=== PATIENT | female | born 1955 | race Caucasian/White ===

== ENCOUNTER 2019-02-21 09:21 | Inpatient (IN) | payer BC, OTHER ==
[2019-02-21] MEDS ORDERED: Ondansetron PF 4 MG/2 ML Vial ONE (09:46)
--- NOTE | 2019-02-21 10:00 | RAD ---
PORTABLE CHEST 1 VIEW: Date: 02/21/19 Time: 0933 hours HISTORY: Weakness, incontinence, altered mental status. FINDINGS: Comparison made with exam of 02/05/15. The heart size is enlarged. The lungs are well expanded without lobar consolidation, pneumothoraces, elizabeth pulmonary edema, or pleural effusions. IMPRESSION: Cardiomegaly. POS: TPC
[2019-02-21 10:23] LABS: Acetaminophen Less than 6.0 mcg/mL (10.0-30.0); Alcohol Less than 10 mg/dL (Less than 10); Salicylate Less than 8.0 mg/dL (15.0-30.0)
[2019-02-21 10:33] LABS: Hemoglobin 13.6 g/dL (12.0-16.0); Mean Corpuscular HGB CONC 32.4 g/dL (32.0-36.0); Mean Corpuscular Hemoglobin 29.3 pg (27.0-31.0); Mean Corpuscular Volume 90.5 fL (78.0-98.0); Mean Platelet Volume 7.5 fL (7.4-10.4); Platelet Count 369 thou/uL (130-400); Red Blood Cell (RBC) Count 4.63 mill/uL (4.20-5.40); White Blood Cell (WBC) Count 23.1 thou/uL (4.8-10.8)
[2019-02-21 10:36] LABS: Band 22 % (5-11); Lymphocytes 5 % (21-51); MDiff Complete? YES; Monocytes 3 % (0-10); Neutrophil 70 % (42-75); Platelet Morphology Comment Appears Adequate; Vacuoles SLIGHT
[2019-02-21 10:50] LABS: ALT (SGPT) 16 U/L (8-55); AST (SGOT) 20 U/L (5-34); Albumin 3.8 g/dL (3.4-4.8); Alkaline Phosphatase 191 U/L (40-150); Anion Gap 14 mmol/L (10-20); BUN (Urea Nitrogen) 23 mg/dL (9.8-20.1); Bilirubin, Total 2.4 mg/dL (0.2-1.2); CK (CPK) 503 U/L (29-168); Calc. Creatinine Clearance 0 mL/min (70-130); Calcium 9.4 mg/dL (7.8-10.44); Carbon Dioxide 21 mmol/L (23-31); Chloride 105 mmol/L (98-107); Estimated GFR-MDRD 59; Globulin 3.5 g/dL (2.4-3.5); Glucose 213 mg/dL (80-115); Lipase Less than 4 U/L (8-78); Potassium 3.1 mmol/L (3.5-5.1); Protein, Total 7.3 g/dL (6.0-8.3); Sodium 137 mmol/L (136-145)
--- NOTE | 2019-02-21 11:15 | CT ---
CT BRAIN NONCONTRAST: DATE: 02/21/2019 HISTORY: 64-year-old female with headache FINDINGS: There is no evidence of acute intra-axial or extra-axial hemorrhage. There is no midline shift or any other mass effect. There is no extra-axial fluid collection. There is no evidence of obstructive hydrocephalus. Calvarium is intact. IMPRESSION: No acute intracranial findings.
--- NOTE | 2019-02-21 11:38 | CT ---
CT ABDOMEN WITH CONTRAST CT PELVIS WITH CONTRAST: DATE: 02/21/2019 HISTORY: 64-year-old female with hematuria bilateral flank pain. COMPARISON: Noncontrast CT of 03/14/2013. TECHNIQUE: IV injection of iodinated contrast media: administered. Oral contrast media:Not administered FINDINGS: There is a new finding of moderate to large staghorn calculi in the bilateral renal pelves, extending into several of the bilateral calyces. There is another new finding of associated moderate dilation of multiple bilateral calyces representing obstructive uropathy. In addition to the staghorn calculi, there are multiple detached calculi which have grown in size or are new. The previously demonstrated exophytic cortical cyst arising from the mid to lower pole of the right kidney has not s ignificant changed, measuring approximately 3 cm. Another new finding of a 9 x 8 x 5 mm calculus in the dependent portion of the urinary bladder to the left of midline, not obstructing the ureter. Infe rior to the renal pelves, the bilateral ureters are not dilated. Urinary bladder has thin, normal james. No evidence of bladder tumor. Large number of diverticula throughout sigmoid and descending co kerline without convincing evidence of diverticulitis. Fewer number of diverticula at splenic flexure. Mural thickening and edema of ascending colon and cecum, and to a lesser degree the transverse colon and terminal ileum. No appendicitis. The previously demonstrated right adrenal mass measuring approximately 3.5 x 2.5 x 3.5 cm, currently measures 4.5 x 3.5 x 4.5 cm. It has heterogeneous attenua tion. The overall average density is 45 Hounsfield units after contrast. On the previous CT, the density was consistent with adrenal adenoma. There is stronger enhancement of the contralateral left adrenal nodule which currently measures 2 x 1.5 x 2 cm. Again noted are the multiple hepatic cysts. No solid hepatic mass identified. There has been interval growth of the previously tiny, approximate 2 mm gallstone, currently measuring approximately 10 x 12 x 10 mm, located in the proximal body of the gallbladder. No signs of acute cholecystitis. No abdominal aortic aneurysm. Unremarkable pancreas and spleen. No small bowel dilation. Tiny splenule in left upper quadrant stable. Herniation of approximately 10-15% volume of the stomach into the thoracic cavity. No pleural effusion. No ascites or pneumoperitoneum. IMPRESSION: 1. Bilateral staghorn renal calculi causing bilateral obstructive uropathy, with moderate bilateral h ydronephrosis. 2. Bladder calculus. 3. Additional bilateral renal calculi. 4. Cholelithiasis. 5. Colonic diverticulosis without convincing evidence of diverticulitis. 6. Slowly growing bilateral adrenal masses, right larger than left, probably benign. 7. Small sliding hiatal hernia.
[2019-02-21 13:20] LABS: Amphetamine Not Detected (NotDetected); Barbiturates Screen Not Detected (NotDetected); Benzodiazepine Screen Not Detected (NotDetected); Cocaine Metabolite Screen Not Detected (NotDetected); Medtox Control Line Valid? VALID (VALID); Medtox Reader # READER 4; Methadone Not Detected (NotDetected); Methamphetamine Not Detected (NotDetected); Opiate Screen Not Detected (NotDetected); Oxycodone Screen Not Detected (NotDetected); Phencyclidine (PCP) Not Detected (NotDetected); THC/Cannabinoid Screen Not Detected (NotDetected); Tricyclic Screen Not Detected (NotDetected)
[2019-02-21 13:24] LABS: Bilirubin Negative (Negative); Blood, Urine Large (Negative); Glucose, Urine (Dipstick) Negative (Negative); Leukocyte Small (Negative); Nitrite Positive (Negative); Protein, Urine (Dipstick) 100 mg/dL (Neg-Trace)
[2019-02-21 13:32] LABS: Clarity Clear (Clear)
[2019-02-21 13:35] LABS: Bacteria/HPF 3+ HPF (None Seen); WBC/HPF 21-50 HPF (0-3)
[2019-02-21] MEDS ORDERED: ISOVUE-370 76%-LOCM 1 ML ONE (13:58)
[2019-02-21] MEDS ORDERED: Acetaminophen 500 MG TAB ONE (14:17)
[2019-02-21] MEDS ORDERED: cloNIDine 0.1 MG TAB PO PRN (16:49)
[2019-02-21] MEDS ORDERED: hydrALAZINE 20 MG/ML VIAL SLOW IVP PRN (16:49)
[2019-02-21] MEDS: NS 0.9% w/ 40 MEQ KCL 1,000 ML IV SCH (17:35)
[2019-02-21] MEDS: Acetaminophen 325 MG TAB PO PRN (17:37)
--- NOTE | 2019-02-21 17:57 | HP ---
PRIMARY CARE PHYSICIAN: Arjun Vilchis MD CHIEF COMPLAINT: Back pain as well as abdominal pain. HISTORY OF PRESENT ILLNESS: Ms. Sosa is a pleasant 64-year-old female, who has a history of hypertension. She says that on Thursday she started having pain in her back, which was going on both sides. She also was having some headache off and on as well. She described the pain in her back and says as sharp, and the patient says it would come, be extremely severe. It would get to the point of being 11/10 and then go away. She also says she felt a hot feeling as well. She says that the pain would radiate down into her groin as well, and she says on Thursday night she urinated, it would look like elizabeth blood, but then this went away. She also noted the pain was so bad that it caused her to have nausea and vomiting. She also says that she has not eaten very much in the last few days, and as a result, she came into the ER for evaluation. In the ER, she had a CT scan of her abdomen and pelvis, which demonstrated bilateral large staghorn calculus. There was some concern for bilateral obstructive uropathy, and she is being admitted for further evaluation. Also on the CT scan, it showed that she had cholelithiasis as well as stones in the gallbladder and incidental finding of an adrenal mass. The patient also has a history of hypertension. She says that she currently does not take any blood pressure medications. She says that she was taught to control her blood pressure with diet. She says that she also has been having some shortness of breath with exertion and she also says that she gets short of breath if she lies down flat. She has not noticed any lower extremity edema. REVIEW OF SYSTEMS: CONSTITUTIONAL: There has been subjective fever as well as chills. No night sweats. No weight loss. HEENT: She is complaining of some headaches, some occasional dizziness but no visual changes. No sore throat, rhinorrhea, or neck pain. No adenopathy. PULMONARY: There is no hemoptysis. No cough. No wheezing. CARDIOVASCULAR: As in history of present illness and also denies any chest pain. GASTROINTESTINAL: No abdominal pain, but she has had some nausea and vomiting. She does complain of constipation where she says she has difficulty having a bowel movement. She attributes this to a previous hysterectomy and says that her abdomen has never been the same since. She also notes severe abdominal bloating as well. GENITOURINARY: As in the history of present illness. MUSCULOSKELETAL: She denies any muscle aches or pains. No joint effusions. SKIN AND INTEGUMENT: No skin changes. No rash. NEUROLOGIC: No focal weakness or numbness. No seizures. ENDOCRINE: No heat or cold intolerance. PAST MEDICAL HISTORY: Significant for hypertension, bladder prolapse, heart palpitations, as well as gastroesophageal reflux disease. PAST SURGICAL HISTORY: She has had a history of kidney stone removal in the past. She believes it was surgical. She has had a hysterectomy as well as a bladder reconstruction. ALLERGIES: PENICILLIN, WHICH CAUSES HIVES AND HER EYES TO SWELL. SOCIAL HISTORY: She is a former smoker. She quit 8 years ago. Denies any alcohol use. She is , has 3 children, and is a full code. Her , Adriel, is her surrogate decision maker. FAMILY HISTORY: Significant for colon cancer in her father as well as lung cancer. She is not sure what conditions her mother have. CURRENT MEDICATIONS: None. PHYSICAL EXAMINATION: GENERAL: She is alert and oriented. She appears to be in no acute distress. She is well developed and well nourished. VITAL SIGNS: Her blood pressure is ranging from 134/96, up to as 160 to 170 systolic. Her heart rate is in the 90s, respiratory rate of 16, temperature is 98.3. HEENT: Pupils are equal, round, and reactive to light. Extraocular muscles are intact. Sclerae anicteric. Throat, there is no erythema, no exudates. She has poor dentition. She is practically edentulous. She has upper plate dentures. Her ears, she has some wax in the right external canal and her tympanic membranes are intact. There is no fluid behind the drum. NECK: There is no adenopathy. No bruits. No jugular venous distention. LUNGS: Her lungs are clear to auscultation. There is no wheezing, no rales, no rhonchi. CARDIOVASCULAR: She has a normal S1 and S2. I do not appreciate an S3 or S4. No murmurs, clicks, or rubs. ABDOMEN: Mildly distended, tympanic to percussion. There is some mild diffuse tenderness. There is no rebound, no guarding. No organomegaly. No dullness to percussion. EXTREMITIES: There is no clubbing or cyanosis. No edema. No joint effusions. NEUROLOGIC: Cranial nerves are intact. Muscle strength is 5/5 in both her upper and lower extremities. SKIN AND INTEGUMENT: No skin changes. No rash. LABORATORY DATA: The white blood cell count is 23.1, hemoglobin is 13.6, hematocrit is 41.9, and platelet count is 369. Sodium is 137, potassium is 3.1, chloride is 105, CO2 is 21, BUN of 23, creatinine is 0.95, glucose is 213, alkaline phosphatase is 191. CK is 503. Urinalysis was significant for nitrite positive and 3+ bacteria. IMAGING STUDIES: She had a CT scan of the brain, which was negative for any acute intracranial abnormalities. This is by my reading. Also, had a CT scan of the abdomen and pelvis, which was significant for bilateral staghorn calculi, cholelithiasis as well as bilateral bladder stones and slowly growing adrenal masses, the right larger than the left, it is listed as probably benign, and evidence for a sliding hiatal hernia. The patient had a chest x-ray, also by my reading, the heart size was mildly enlarged, but there was no evidence of any increased pulmonary vascular markings. ASSESSMENT AND PLAN: 1. This is a pleasant 64-year-old female, who presents with abdominal pain as well as flank pain. She has had subjective chills and fever at home as well as gross hematuria. On her CT scan, it was noted that she had bilateral staghorn count calculi. She also has an elevated white blood cell count concerning for early sepsis. She will be admitted and started on IV antibiotics. Blood and urine cultures have been done in the ER, and Urology will be consulted to help manage and evaluate the staghorn calculus. Suspected culprit for the urinary tract infection would be Proteus. 2. Hypertension, which appears to be poorly controlled. She will need to be started on an antihypertensive agent. Concerning her symptoms of dyspnea on exertion as well as the uncontrolled blood pressure, we will need to get an echo to rule out heart failure. 3. Incidental adrenal mass. CT criteria are suggesting that this is a benign etiology. However, if her blood pressure proves to be difficult to control, she may need to have studies done to see whether or not this is an active adrenal adenoma and check for serum aldosterone levels as well as concern for other etiology such as pheochromocytoma. It is noted that her potassium is a little bit on the lower side. 4. Gastroesophageal reflux disease. She has been counseled that she likely should be on a proton pump inhibitor long-term as she has fairly consistent symptoms, which could put her at risk for esophageal stricture and even Marin's esophagus and cancer. We will place her on a proton pump inhibitor and she has been asked to discuss this with Dr. Dorantes. We will place the patient on DVT prophylaxis and further recommendations to follow. Job ID: [id number]
[2019-02-21] MEDS ORDERED: diphenhydrAMINE 25 MG CAP PO PRN (18:37)
[2019-02-21] MEDS: Ondansetron PF 4 MG/2 ML Vial IVP PRN (19:24)
--- NOTE | 2019-02-21 20:37 | PDOC.EVN ---
Event Note - Event Note Event Note: Called by RN due to patient complaining of difficulty breathing. Ordered nebs as patient reportedly wheezing. Sats 95% on RA. Reportedly appeared anxious. Not normally on oxygen at home. No hx of COPD or asthma. I have examined and assessed patient, s/p neb and feeling better. Patient states she felt better as soon as oxygen was put on. She states this has been happening after vomiting. Denies any choking or aspiration. States she is dry heaving and afterwards feels pressure in her chest with trouble catching her breath and reports she starts to shake afterward. At present without any pain. States she feels bloated, but has been passing wind. Last bowel movement was yesterday evening, loose stools after a week of no stools. She states this is common for her. Has not had anything to eat since Thursday and feels this is the reason for her dry heaving. Given Zofran IV by nurse. Phenergan prescribed as well. Patient has had extensive imaging including CXR and CT A/P today. Given elevated t. bili, will add-on RUQ US. LFTs to be checked with AM labs. Continue to monitor.
[2019-02-21] MEDS: Docusate 100 MG CAP PO SCH (21:45)
--- NOTE | 2019-02-22 00:10 | CON ---
DATE OF CONSULTATION: 02/21/2019 CONSULTING PHYSICIAN: Alex Perez REASON FOR CONSULTATION: Nephrolithiasis. HISTORY OF PRESENT ILLNESS: Mrs. Sosa is a 64-year-old white female with a history of nephrolithiasis who came into the emergency room due to bilateral flank pain and feelings of significant malaise, nausea and vomiting. She has a remote history of kidney stones and was treated by Dr. Lee in the past with ureteroscopy and removal of some stones at that time. She has not seen a urologist in several years or any doctor for that matter in the past 3-4 years. When she started feeling bad approximately 2 days ago, she initially thought that she had some kind of pulled muscle in her back and was possibly getting sick. When she had progressively gotten increasing flank pain bilaterally with evidence of hematuria and beginning as a feeling of malaise and nausea and vomiting, she came into the emergency room today where she underwent a CT scan, which demonstrated bilateral staghorn nephrolithiasis. Her urinalysis was consistent with a possible urinary tract infection. Given these findings, I had recommended that she be admitted to the [facility] for treatment of bilateral pyelonephritis and initiation of a treatment plan for her nephrolithiasis. On my discussion with the patient, she states she is feeling a little bit better after being put into the hospital and being receiving antibiotics and medication. She is still having some nausea, but no vomiting. She denies any current fevers. She states both her sides and flanks are hurting without radiation to the groin. The pain has been going on for several weeks now, but has progressively gotten worse in the last few days. She states she has had intermittent flank pain bilaterally for the past 4 months, but she never attributed this to potentially having kidney stones. ALLERGIES: PENICILLIN. HOME MEDICATIONS: The patient does not entirely know her home medications. She states that she has a "list on file." Most recent medications listed are 1. Prednisone. 2. Chlordiazepoxide. 3. Relafen. 4. Losartan. Medication list could not be verified with the patient. PAST MEDICAL HISTORY: 1. Hypertension. 2. Bladder prolapse. 3. Heart palpitations. 4. Gastroesophageal reflux disease. PAST SURGICAL HISTORY: 1. Ureteroscopy with Dr. Lee. 2. Hysterectomy. 3. Bladder reconstruction, although further details could not be provided. FAMILY HISTORY: Significant for colon cancer in her father as well as lung cancer. Her daughter has a significant history of nephrolithiasis and her father also had a significant history of nephrolithiasis. SOCIAL HISTORY: The patient is , lives with her . She denies currently smoking, although she used to smoke, but quit 8 years ago. She denies illicit drug use or alcohol abuse. REVIEW OF SYSTEMS: A 12-point review of system was reviewed and negative other than what was commented on the HPI or specifically below. She does report headaches and some dizziness, but no visual changes or severe headaches. No chest pain or shortness of breath. Remainder of review of systems was reviewed, otherwise negative other than what was commented on the HPI. PHYSICAL EXAMINATION: VITAL SIGNS: Temperature 97.9, pulse 113, blood pressure 157/83, respirations 20, saturations 95% on 3 L nasal cannula. GENERAL: No apparent distress, although she appears mildly uncomfortable. She is communicative and alert, well nourished, well developed, appears stated age. HEENT: Normocephalic, atraumatic. Pupils are symmetric and round. Sclerae are nonicteric. Moist mucous membranes. Trachea midline. CARDIOVASCULAR: Sinus tachycardia. Normal S1 and S2. Symmetric pulses. CHEST: No increased work of breathing. Symmetric expansion of the lungs, clear anteriorly. ABDOMEN: Soft, mildly tender to palpation bilaterally, especially toward the back where there is fairly significant CVA tenderness, nondistended. Positive bowel sounds. No obvious hepatosplenomegaly. No hernias. : Deferred at this time. EXTREMITIES: No clubbing, cyanosis, or edema. MUSCULOSKELETAL: No joint deformities or joint erythema noted. Full range of motion. SKIN: Warm and dry. Good turgor. No rashes or lesions. NEUROLOGIC: Cranial nerves 2 through 12 appear grossly intact. No focal or sensory-motor deficits identified. LYMPH: There is no lymphadenopathy in the cervical, axillary, inguinal regions or supraclavicular areas. PSYCHIATRIC: Alert and oriented x3. Appropriate mood and affect. LABORATORY EVALUATION: The full set of labs are in the [facility] system, which I have reviewed. White count is 23.1 with a hemoglobin of 13.6, creatinine is 0.95. Urine demonstrates nitrite positive, leukocyte esterase small, 7-10 red cells, 21-50 white cells, and 3+ bacteria. Urine culture is currently pending, but has not yet resulted. CT from February 21, I have reviewed these images myself and agree with the findings as discussed below. There are bilateral staghorn renal calculi causing bilateral obstructive uropathy with moderate hydronephrosis on both sides. There is calyceal dilation. There is a bladder calculus measuring approximately 4 mm. There are additional bilateral renal calculi in addition to the staghorn calculi on both sides. Cholelithiasis, diverticulosis present. There are bilateral adrenal masses, larger on the right, likely benign and a small sliding hiatal hernia. A brain CT was negative. ASSESSMENT AND PLAN: A 64-year-old white female with bilateral staghorn nephrolithiasis with likely obstruction and evidence of possible pyelonephritis, currently on antibiotic therapy with Levaquin and vancomycin. She did have some reactions to vancomycin, but the Levaquin is probably more important. If she is not showing improvement of her white count on levofloxacin alone, I would consider broadening her to either ceftriaxone, meropenem, or Zosyn. The likely cross-reactivity between penicillin and synthetic penicillins is minimal and she would probably need broader spectrum coverage if she is not showing improvement. Given that she has staghorns and a significant amount of stone burden bilaterally, this will be excessive to try and handle with ureteroscopy alone. She probably will need bilateral percutaneous nephrolithotomy surgeries followed by clean-up ureteroscopy on both sides for a total of a minimum of 4 surgeries in complete totality. However, none of these procedure will be recommended in the setting of a current infection with elevated white count. At the current time, I would recommend for bilateral nephrostomy tubes in preparation for percutaneous nephrolithotomy bilaterally. Once the nephrostomy tubes were placed, we would allow for proper drainage of her infections on both sides followed by at least 2 weeks of antibiotic therapy, at which point we can then subsequently start with staged percutaneous nephrolithotomy, one side being done before the other with the percutaneous nephrolithotomy being done first and then a ureteroscopy on the same side followed by percutaneous nephrolithotomy on the opposite side and then a ureteroscopy on that side as well. I have explained this all to the patient and she is in agreement with the plan. She also has bilateral adrenal masses. These appear benign at the current time. I do not think anything further needs to be done at the current moment as her stone disease is a more pressing problem that is causing a more immediate issue. Long-term discussion about her adrenal masses can be discussed on a later basis, but most likely will just require some surveillance as well as some workup for a possible adrenal hyperplasia including an ACTH level and cortisol levels, and some additional adrenal based labs. These can be handled on an an outpatient basis. Summary of recommendations for now. 1. N.p.o. after midnight. 2. Bilateral nephrostomy tubes tomorrow. 3. Continue antibiotics for at least 2 weeks. Levaquin is probably acceptable. However, if the patient is not showing improvement, we would consider broadening to a synthetic penicillin such as meropenem or Zosyn. 4. We will continue to follow while inpatient, but we will schedule definitive stone surgery at a later date as nothing can be done during an active infection from a stone management standpoint. Job ID: [id number] EDER
[2019-02-22] MEDS: Acetaminophen 325 MG TAB PO PRN ×3 (02:14→22:10)
[2019-02-22] MEDS: Ondansetron PF 4 MG/2 ML Vial IVP PRN (02:15)
[2019-02-22] MEDS: NS 0.9% w/ 40 MEQ KCL 1,000 ML IV SCH ×2 (02:16→14:10)
[2019-02-22 04:51] LABS: INR-International Normal Ratio 1.2; PTT 35.6 SEC (22.9-36.1); Prothrombin Time 15.1 SEC (12.0-14.7)
[2019-02-22 05:10] LABS: Anion Gap 15 mmol/L (10-20); BUN (Urea Nitrogen) 17 mg/dL (9.8-20.1); Calc. Creatinine Clearance 91 mL/min (70-130); Calcium 8.4 mg/dL (7.8-10.44); Carbon Dioxide 19 mmol/L (23-31); Chloride 107 mmol/L (98-107); Estimated GFR-MDRD 76; Glucose 155 mg/dL (80-115); Potassium 4.1 mmol/L (3.5-5.1); Sodium 137 mmol/L (136-145)
[2019-02-22 05:11] LABS: ALT (SGPT) 17 U/L (8-55); AST (SGOT) 18 U/L (5-34); Albumin 3.3 g/dL (3.4-4.8); Alkaline Phosphatase 153 U/L (40-150); Bilirubin, Total 1.8 mg/dL (0.2-1.2); Protein, Total 6.2 g/dL (6.0-8.3)
[2019-02-22 05:13] LABS: Band 34 % (5-11); Hemoglobin 10.9 g/dL (12.0-16.0); Lymphocytes 10 % (21-51); MDiff Complete? YES; Mean Corpuscular HGB CONC 31.9 g/dL (32.0-36.0); Mean Corpuscular Hemoglobin 29.2 pg (27.0-31.0); Mean Corpuscular Volume 91.7 fL (78.0-98.0); Mean Platelet Volume 8.1 fL (7.4-10.4); Monocytes 8 % (0-10); Neutrophil 48 % (42-75); Platelet Count 287 thou/uL (130-400); RBC Distribution Width 13.1 % (11.5-14.5); Red Blood Cell (RBC) Count 3.74 mill/uL (4.20-5.40); White Blood Cell (WBC) Count 17.4 thou/uL (4.8-10.8)
[2019-02-22] MEDS: Promethazine HCl 25 MG/ML VIAL IM/IV PRN ×2 (07:13→16:14)
--- NOTE | 2019-02-22 07:26 | ULT ---
RIGHT UPPER QUADRANT ULTRASOUND: INDICATIONS: Epigastric abdominal with nausea and vomiting and elevated bilirubin. COMPARISON: Prior CT abdomen and pelvis dated 02/21/2019. FINDINGS: There are small cysts involving the liver. There is a 1.3 cm cyst within the anterior left hepatic l obe. There is an additional 2.5 cm cyst seen within the left hepatic lobe. There is a 2 cm cyst wit hin the central right hepatic lobe. There is diffuse fatty infiltration. There is a 3.9 cm mass wit hin the region of the right adrenal gland with some internal echogenicity, suspicious for an adenoma. There are small stones within the gallbladder. No sonographic Lenz sign is reported. There is a large, shadowing staghorn calculus within the right renal pelvis, with moderate to prominent caliect asis of the renal collecting system of the right kidney. There is a 3.2 cm cyst involving the inferi or pole of the right kidney. The common bile duct measures 2.9 mm. The visualized pancreas is withi n normal limits. The right kidney measures 11.2 x 5.6 cm. IMPRESSION: 1. Hepatic and right renal cysts. Fatty liver. 2. Large staghorn calculus of the right renal pelvis with dilatation of the calices of the right caitlyn al collecting system. 3. Cholelithiasis without sonographic evidence of acute cholecystitis. 4. Large hyperechoic mass within the region of the right adrenal gland, suspicious for an adenoma. POS: BH
[2019-02-22] MEDS: Docusate 100 MG CAP PO SCH ×2 (08:55→20:44)
[2019-02-22] MEDS: Amlodipine 5 MG TAB PO SCH (08:55)
[2019-02-22] MEDS: Enoxaparin Sodium 40 MG/0.4 ML SYRINGE SC SCH (08:56)
--- NOTE | 2019-02-22 14:25 | PQF ---
CLINICAL DOCUMENTATION IMPROVEMENT CLARIFICATION FORM: ICD-10 Updated PLEASE DO AN ADDENDUM TO THE PROGRESS NOTE WITH ANY DOCUMENTATION UPDATES OR ADDITIONS AND CARRY THROUGH TO DC SUMMARY. THANK YOU. DATE: 02/23/19 ATTN: DR. BRADLEY Please exercise your independent, professional judgment in responding to the clarification form. Clinical indicators are provided on the bottom of this form for your review Please check appropriate box(s) to clarify if the following diagnosis has been ruled in or ruled out: "SEPSIS" [x ] Ruled in diagnosis [ x] Continue to treat [ ] Resolved [ ] Ruled out diagnosis [ ] Cannot rule out diagnosis [ ] Other diagnosis [ ] Unable to determine In addition, please specify: Present on Admission (POA): [ x ] Yes [ ] No [ ] Unable to determine For continuity of documentation, please document condition throughout progress notes and discharge summary. Thank You. CLINICAL INDICATORS - SIGNS / SYMPTOMS / LABS ER NOTE: "SEPSIS" H&P: "SHE ALSO HAS AN ELEVATED WHITE BLOOD CELL COUNT CONCERNING FOR EARLY SEPSIS." PULSE 106 WBC 23.1 BANDS 34 RISKS: BILATERAL STAGHORN NEPHROLITHIASIS UTI TREATMENT: IV VANCOMYCIN (ER) IV LEVAQUIN (ER-PRESENT) IV FLUIDS (ER-PRESENT) BLOOD AND URINE CULTURES [employer] Winform Viewer (This form is maintained as a part of the permanent medical record) 2014 [email or web address]. All Rights Reserved [email or web address] [email or web address] Office: [phone] [facility]
--- NOTE | 2019-02-22 14:51 | PDOC.HOSPP ---
- Subjective Subjective: Ms. Sosa was seen today in follow-up of nephrolithiasis and UTI. She did not rest well last night. She continues to feel a bit nauseated. She denies any shortness of breath however. - Objective Vital Signs & Weight: Vital Signs (12 hours) Temp Pulse Resp BP BP Pulse Ox 02/22/19 11:24 98.9 F 79 16 157/88 H 95 02/22/19 08:55 81 143/82 H 02/22/19 08:00 97 02/22/19 07:20 98.1 F 81 14 143/82 H 97 02/22/19 05:34 97 02/22/19 03:31 98.5 F 87 18 126/74 97 Weight Admit Weight 169 lb 12.095 oz Weight 169 lb 12.095 oz I&O: 02/21/19 02/22/19 02/23/19 06:59 06:59 06:59 Intake Total 1600 Balance 1600 Result Diagrams: 02/22/19 04:02 02/22/19 04:02 ROS - Review of Systems All systems: All other ROS were reviewed and found negative. - Medication Medications: Active Medications Generic Name Dose Route Start Last Admin Trade Name Freq PRN Reason Stop Dose Admin Acetaminophen 650 mg 02/21/19 16:49 02/22/19 02:14 Tylenol PO 650 mg Q4H PRN Administration Headache/Fever/Mild Pain (1-3) Albuterol/Ipratropium 3 ml 02/21/19 19:45 02/22/19 10:26 Duoneb NEB Not Given [id number] AVNI Amlodipine Besylate 5 mg 02/22/19 09:00 02/22/19 08:55 Norvasc PO 5 mg DAILY AVNI Administration Docusate Sodium 100 mg 02/21/19 21:00 02/22/19 08:55 Colace PO 100 mg BID AVNI Administration Enoxaparin Sodium 40 mg 02/22/19 09:00 02/22/19 08:56 Lovenox SC Not Given 0900 AVNI Levofloxacin 500 mg/ Device 100 mls @ 100 mls/hr 02/22/19 14:00 02/22/19 14: 10 IVPB 100 mls Q24HR AVNI Administration Potassium Chloride/Sodium Chloride 1,000 mls @ 100 mls/hr 02/21/19 16:49 14:10 Ns 0.9% W/ 40 Meq Kcl IV 1,000 mls .Q10H AVNI Administration Ondansetron HCl 4 mg 02/21/19 16:49 02/22/19 02:15 Zofran IVP 4 mg Q6H PRN Administration Nausea/Vomiting Promethazine HCl 12.5 mg 02/21/19 20:31 02/22/19 07:13 Phenergan IM/IV 12.5 mg Q6H PRN Administration Nausea/Vomiting - Exam NAD Eye: PERRL, anicteric sclera ENT: normocephalic atraumatic, no oropharyngeal lesions Neck: supple, symmetric, no JVD Heart: RRR, no murmur, no gallops, no rubs Respiratory: CTAB, no wheezes, no rales, no ronchi Gastrointestinal: soft, non-tender, non-distended Extremities: no cyanosis, no edema Hosp A/P (1) Sepsis Code(s): A41.9 - SEPSIS, UNSPECIFIED ORGANISM Status: Acute (2) Bilateral nephrolithiasis Code(s): N20.0 - CALCULUS OF KIDNEY Status: Acute (3) UTI (urinary tract infection) Status: Acute (4) Hypertension Code(s): I10 - ESSENTIAL (PRIMARY) HYPERTENSION Status: Chronic - Plan * Sepsis - due to UTI - will continue Levaquin for now- clinically she seems to have ahd some response. Her WBC count is beginning to decline, and she is not febrile. Hopefully cultures will be available soon to help guide therapy * Nephrolithiasis- Urology input appreciated. She will have bilateral Nephrostomy tubes placed * HTN- blood pressure is a bit better- will continue Norvasc- and PRN medications * Echo is pending- due to some hear failure symptoms noted on initial presentation
--- NOTE | 2019-02-22 21:43 | PRG ---
DATE OF SERVICE: 02/22/2019 SUBJECTIVE: The patient has not yet had nephrostomy tubes. They were scheduled yesterday and I have spoken with the radiologist, but apparently they did not get her case. She remains stable hemodynamically. She is complaining of headaches and still does not feel well, but is not complaining of any worsening pain and has not had any fevers. OBJECTIVE: VITAL SIGNS: Temperature 98.7, pulse 86, respirations 16, blood pressure 152/82, and saturations 94% on room air. GENERAL: No apparent distress. CARDIOVASCULAR: Regular rate and rhythm. ABDOMEN: Soft, nontender, and nondistended. Positive bowel sounds. EXTREMITIES: No clubbing, cyanosis or edema. LABORATORY EVALUATION: Full set of labs are in the [employer] system, which I have reviewed. Of note, white count is decreased to 17.4. Creatinine remained stable at 0.77. ASSESSMENT AND PLAN: A 64-year-old white female with bilateral staghorn calculi with bilateral urinary tract infection versus pyelonephritis with decreasing white count, on antibiotic therapy alone. I still would like to have percutaneous nephroureteral catheters placed for preparation for percutaneous nephrolithotomy, as well as decompression of the kidneys and further clearance of infection. Antibiotics will need to be continued for 10 days. The patient can eat tonight since the procedure is not going to be done and we will plan n.p.o. after midnight for nephroureteral catheters tomorrow. Job ID: [id number]
[2019-02-23] MEDS: NS 0.9% w/ 40 MEQ KCL 1,000 ML IV SCH ×3 (05:46→21:41)
[2019-02-23] MEDS: Acetaminophen 325 MG TAB PO PRN (05:52)
[2019-02-23] MEDS: Docusate 100 MG CAP PO SCH ×2 (08:34→20:50)
[2019-02-23] MEDS: Amlodipine 5 MG TAB PO SCH (08:34)
[2019-02-23] MEDS ORDERED: Midazolam HCl 2 mg/2 ml Vial ONE (09:43)
[2019-02-23] MEDS ORDERED: Fentanyl 100 MCG/2 ML VIAL ONE (09:44)
[2019-02-23] MEDS: Enoxaparin Sodium 40 MG/0.4 ML SYRINGE SC SCH (10:46)
--- NOTE | 2019-02-23 11:24 | PDOC.HOSPP ---
- Subjective Subjective: Patient seen and examined. No new complaints. No overnight events - Objective Vital Signs & Weight: Vital Signs (12 hours) Temp Pulse Resp BP BP Pulse Ox 02/23/19 08:34 80 168/73 H 02/23/19 07:00 98.5 F 85 18 168/73 H 96 02/23/19 04:00 98.3 F 81 16 164/87 H 95 02/23/19 03:54 95 02/23/19 03:27 98.3 F 81 16 164/87 H 95 02/22/19 23:36 98.3 F 84 16 145/77 H 94 L Weight Admit Weight 169 lb 12.095 oz Weight 169 lb 12.095 oz I&O: 02/22/19 02/23/19 02/24/19 06:59 06:59 06:59 Intake Total 1599 2049 Balance 1599 2049 Result Diagrams: 02/22/19 04:02 02/22/19 04:02 ROS - Review of Systems All systems: All other ROS were reviewed and found negative. ENT: denies: ear pain, ear discharge, nose pain, nose discharge, nose congestion , mouth pain, mouth swelling, throat pain, throat swelling, other Respiratory: denies: cough, dry, shortness of breath, hemoptysis, SOB with excertion, pleuritic pain, sputum, wheezing, other Cardiovascular: denies: chest pain, palpitations, orthopnea, paroxysmal noc. dyspnea, edema, light headedness, other Gastrointestinal: denies: nausea, vomitting, abdominal pain, diarrhea, constipation, melena, hematochezia, other Genitourinary: denies: dysuria, frequency, incontinence, hematuria, retention, other Musculoskeletal: denies: neck pain, shoulder pain, arm pain, back pain, hand pain, leg pain, foot pain, other Skin: denies: rash, lesions, johann, bruising, other - Medication Medications: Active Medications Generic Name Dose Route Start Last Admin Trade Name Freq PRN Reason Stop Dose Admin Acetaminophen 650 mg 02/21/19 16:49 02/23/19 05:52 Tylenol PO 650 mg Q4H PRN Administration Headache/Fever/Mild Pain (1-3) Albuterol/Ipratropium 3 ml 02/21/19 19:45 02/23/19 10:55 Duoneb NEB 3 ml [id number] AVNI Administration Amlodipine Besylate 5 mg 02/22/19 09:00 02/23/19 08:34 Norvasc PO 5 mg DAILY AVNI Administration Docusate Sodium 100 mg 02/21/19 21:00 02/23/19 08:34 Colace PO 100 mg BID AVNI Administration Enoxaparin Sodium 40 mg 02/22/19 09:00 02/23/19 10:46 Lovenox SC Not Given 0900 [facility] Levofloxacin 500 mg/ Device 100 mls @ 100 mls/hr 02/22/19 14:00 02/22/19 14: 10 IVPB 100 mls Q24HR AVNI Administration Potassium Chloride/Sodium Chloride 1,000 mls @ 100 mls/hr 02/21/19 16:49 05:46 Ns 0.9% W/ 40 Meq Kcl IV 1,000 mls .Q10H AVNI Administration Ondansetron HCl 4 mg 02/21/19 16:49 02/22/19 02:15 Zofran IVP 4 mg Q6H PRN Administration Nausea/Vomiting Promethazine HCl 12.5 mg 02/21/19 20:31 02/22/19 16:14 Phenergan IM/IV 12.5 mg Q6H PRN Administration Nausea/Vomiting - Exam NAD, awake alert Eye: PERRL, anicteric sclera ENT: normocephalic atraumatic, no oropharyngeal lesions Neck: supple, symmetric, no JVD Heart: RRR, no murmur, no gallops, no rubs Respiratory: CTAB, no wheezes, no rales, no ronchi Gastrointestinal: soft, non-tender, non-distended, normal bowel sounds Extremities: no cyanosis, no clubbing, no edema Skin: normal turgor, no lesions, no rashes Neurological: CN's grossly intact, no focal deficits Musculoskeletal: normal tone, normal strength Psychiatric: normal affect, normal behavior Hosp A/P (1) Bilateral nephrolithiasis Code(s): N20.0 - CALCULUS OF KIDNEY Status: Acute (2) Sepsis Code(s): A41.9 - SEPSIS, UNSPECIFIED ORGANISM Status: Acute (3) UTI (urinary tract infection) Status: Acute (4) Hypertension Code(s): I10 - ESSENTIAL (PRIMARY) HYPERTENSION Status: Chronic - Plan old records reviewed/req, plan discussed w/ family, continue antibiotics continue IV antibiotics as ordered medication reviewed as below symptomatic treatment follow culture today nephrostomy tube placement urology to decide further plan
[2019-02-23] MEDS: HYDROcodone/Acetaminophen 5/325 mg Tablet PO PRN ×2 (14:01→20:50)
--- NOTE | 2019-02-23 14:04 | SPC ---
Right percutaneous nephrostomy catheter placement fluoroscopic guided. Conscious sedation: At least 1 hour was spent with the patient for conscious sedation. HISTORY: Staghorn calculus. Partial obstruction of ureter. Fluoroscopy time 9.8 minutes. FINDINGS: After explaining the procedure and answering all questions, patient was placed on the fluor oscopy table in prone position. Sterile technique, buffered local anesthesia, conscious sedation, and fluoroscopic guidance were used to carefully advance the tip of a 21-gauge AccuStick needle to the right lower pole posterior calyx containing a portion of the staghorn calcification. Small amount of contrast was instilled through the needle to confirm tip placement and opacify the re nal collecting system. A 0.018 wire was carefully teased into the right renal pelvis to hold position. AccuStick technique was then used to place the sheath into the right renal pelvis. 0.035 gu idewire was positioned into the proximal ureter, and a 5 [place] Berenstein catheter was carefully advanced into the right ureter. No evidence of obstruction. The catheter was capped and secured externally with buffered local anesthesia and 0 silk suture. Kisha ent tolerated the procedure well and was eventually returned to her room in unchanged condition. IMPRESSION: Successful right percutaneous nephrostomy catheter placement, accessing the dominant righ t posterior lower pole calyx containing a large calcification.
--- NOTE | 2019-02-23 14:51 | SPC ---
Left percutaneous nephrostomy catheter placement fluoroscopic guided. Conscious sedation: At least 1 hour was spent with the patient conscious sedation. HISTORY: Staghorn calculus. Ureteral obstruction. FINDINGS: After explaining the procedure and answering all questions, patient was placed on the fluor oscopy table in prone position. Sterile technique, buffered local anesthesia, conscious sedation, fluoroscopic guidance, and a left p osterolateral approach were used to carefully advance the tip of an AccuStick needle to the stone in the dilated left inferior pole posterior calyx. Contrast was instilled to confirm position. Extensive attempts were made to advance a wire into the renal pelvis. Micropuncture dilator was caref ully placed for additional wire manipulation. The wire consistently tract outside of the collecting system because of the hard impaction of the staghorn calculus in the calyx and its connection to the pelvic portion of the staghorn calculus. A second needle placement was performed to further attempt access via the posterior lower pole calyx. Extensive wire and dilator manipulation were unsuccessful. Decision was made to access the renal pelvic portion of the staghorn calculus. A left posterolateral approach was used to achieve maximum renal parenchymal purchase. The tip of the needle was advanced through the posterolateral renal cortex near the inferior pole, landing directly on to the renal pelv ic portion of the staghorn calculus. Small amount of contrast was injected to confirm position. Guidewire was placed and AccuStick system used for sheath placement. 0.035 guidewire was advanced int o the ureter and 5 [place] Berenstein eventually placed into the ureter. Catheter was flushed, capped, and secured externally with buffered local anesthesia and 0 silk suture. Patient tolerated th e procedure well and was eventually returned in unchanged condition. IMPRESSION: Technically successful left percutaneous nephrostomy access with Berenstein catheter left in place. The dense impaction of the staghorn calculus prevented access via the lower pole posterior calyx. Maximum renal parenchyma approach was used to access the pelvic portion of the stagh orn calculus
[2019-02-23] MEDS: Ondansetron ODT 4 MG TAB PO PRN (19:36)
[2019-02-24 05:11] LABS: Anion Gap 13 mmol/L (10-20); BUN (Urea Nitrogen) 12 mg/dL (9.8-20.1); Calc. Creatinine Clearance 86 mL/min (70-130); Calcium 9.6 mg/dL (7.8-10.44); Carbon Dioxide 22 mmol/L (23-31); Chloride 103 mmol/L (98-107); Estimated GFR-MDRD 71; Glucose 137 mg/dL (80-115); Potassium 4.3 mmol/L (3.5-5.1); Sodium 134 mmol/L (136-145)
[2019-02-24] MEDS: NS 0.9% w/ 40 MEQ KCL 1,000 ML IV SCH (05:52)
[2019-02-24 05:56] LABS: Band 23 % (5-11); Hemoglobin 13.4 g/dL (12.0-16.0); Lymphocytes 20 % (21-51); MDiff Complete? YES; Mean Corpuscular Hemoglobin 29.8 pg (27.0-31.0); Mean Corpuscular Volume 90.2 fL (78.0-98.0); Mean Platelet Volume 7.8 fL (7.4-10.4); Monocytes 1 % (0-10); Neutrophil 56 % (42-75); Platelet Count 318 thou/uL (130-400); Red Blood Cell (RBC) Count 4.49 mill/uL (4.20-5.40); White Blood Cell (WBC) Count 14.6 thou/uL (4.8-10.8)
[2019-02-24] MEDS: Amlodipine 10 MG TAB PO SCH (09:11)
[2019-02-24] MEDS: Docusate 100 MG CAP PO SCH ×2 (09:11→20:42)
[2019-02-24] MEDS: Enoxaparin Sodium 40 MG/0.4 ML SYRINGE SC SCH (09:11)
--- NOTE | 2019-02-24 11:33 | PRG ---
DATE OF SERVICE: 02/24/2019 SUBJECTIVE: The patient states she is feeling well. She had her bilateral nephroureteral catheters which were capped and drained down to the bladder done yesterday. She states that her nausea and malaise has improved significantly. She has eaten some. She has no nausea or vomiting. Denies any fevers. OBJECTIVE: VITAL SIGNS: Temperature 98.7, pulse 97, respirations 18, blood pressure 155/77, saturation 95% on room air. GENERAL: No apparent distress, communicative and alert. CARDIOVASCULAR: Regular rate and rhythm. ABDOMEN: Soft, nontender, and nondistended. Positive bowel sounds. BACK: Both nephroureteral catheters are in place, capped and covered with a dressing. EXTREMITIES: No clubbing, cyanosis, or edema. LABORATORY EVALUATION: The full set of labs are in the [employer] system, which I have reviewed. Of note, the patient's white count is down to 14.6, creatinine is 0.81. ASSESSMENT AND PLAN: A 64-year-old white female with bilateral staghorn calculi with Proteus growing in the urine, which is sensitive to ciprofloxacin and levofloxacin. Would recommend the patient be transitioned to oral antibiotics with either Levaquin or Cipro and treat for a total of 14 days including the days that she has been in the hospital. After completing her treatment course, she will need to stay on suppressive antibiotics either Cipro 250 mg p.o. daily or levofloxacin 250 mg p.o. every other day to suppress bacterial growth and recurrent infection. After she has her treatments of primary infection completed in 2 weeks, I will see her in the office and I will schedule her for a PCNL. I have discussed this all with the patient and she is in agreement with the plan. From my standpoint, there is nothing further I needs to do on this admission. I will sign off and make her followup appointments and see her back in the office. Job ID: [id number]
--- NOTE | 2019-02-24 12:10 | PDOC.HOSPP ---
- Subjective Subjective: Patient seen and examined. No new complaints. No overnight events - Objective Vital Signs & Weight: Vital Signs (12 hours) Temp Pulse Resp BP BP BP Pulse Ox 02/24/19 11:24 98.3 F 101 H 18 138/79 96 02/24/19 09:11 97 155/77 H 02/24/19 08:00 98.7 F 97 18 155/77 H 95 02/24/19 03:51 98.2 F 91 16 168/80 H 94 L Weight Admit Weight 169 lb 12.095 oz Weight 169 lb 12.095 oz I&O: 02/23/19 02/24/19 02/25/19 06:59 06:59 06:59 Intake Total 2049 2099 Balance 2049 2099 Result Diagrams: 02/24/19 04:31 02/24/19 04:31 ROS - Review of Systems All systems: All other ROS were reviewed and found negative. ENT: denies: ear pain, ear discharge, nose pain, nose discharge, nose congestion , mouth pain, mouth swelling, throat pain, throat swelling, other Respiratory: denies: cough, dry, shortness of breath, hemoptysis, SOB with excertion, pleuritic pain, sputum, wheezing, other Cardiovascular: denies: chest pain, palpitations, orthopnea, paroxysmal noc. dyspnea, edema, light headedness, other Gastrointestinal: denies: nausea, vomitting, abdominal pain, diarrhea, constipation, melena, hematochezia, other Genitourinary: denies: dysuria, frequency, incontinence, hematuria, retention, other Musculoskeletal: denies: neck pain, shoulder pain, arm pain, back pain, hand pain, leg pain, foot pain, other Skin: denies: rash, lesions, johann, bruising, other - Medication Medications: Active Medications Generic Name Dose Route Start Last Admin Trade Name Freq PRN Reason Stop Dose Admin Acetaminophen 650 mg 02/21/19 16:49 02/23/19 05:52 Tylenol PO 650 mg Q4H PRN Administration Headache/Fever/Mild Pain (1-3) Hydrocodone Bitart/Acetaminophen 1 tab 02/21/19 16:49 02/23/19 20:50 [place] 5/325 PO 1 tab Q4H PRN Administration Moderate Pain (4-6) Albuterol/Ipratropium 3 ml 02/21/19 19:45 02/24/19 10:25 Duoneb NEB Not Given [id number]-FR AVNI Amlodipine Besylate 10 mg 02/24/19 09:00 02/24/19 09:11 Norvasc PO 10 mg DAILY AVNI Administration Docusate Sodium 100 mg 02/21/19 21:00 02/24/19 09:11 Colace PO 100 mg BID AVNI Administration Enoxaparin Sodium 40 mg 02/22/19 09:00 02/24/19 09:11 Lovenox SC 40 mg 0900 [facility] Administration Levofloxacin 500 mg/ Device 100 mls @ 100 mls/hr 02/22/19 14:00 02/23/19 14: 01 IVPB 100 mls Q24HR AVNI Administration Ondansetron HCl 4 mg 02/21/19 16:49 02/23/19 19:36 Zofran Odt PO 4 mg Q6H PRN Administration Nausea/Vomiting Ondansetron HCl 4 mg 02/21/19 16:49 02/22/19 02:15 Zofran IVP 4 mg Q6H PRN Administration Nausea/Vomiting Promethazine HCl 12.5 mg 02/21/19 20:31 02/22/19 16:14 Phenergan IM/IV 12.5 mg Q6H PRN Administration Nausea/Vomiting - Exam NAD, awake alert Eye: PERRL, anicteric sclera ENT: normocephalic atraumatic, no oropharyngeal lesions Neck: supple, symmetric, no JVD Heart: RRR, no murmur, no gallops Respiratory: CTAB, no wheezes, no rales, no ronchi Gastrointestinal: soft, non-tender (nephrostomy tube+), non-distended, normal bowel sounds Extremities: no cyanosis, no clubbing, no edema Skin: normal turgor, no lesions, no rashes Neurological: CN's grossly intact, no focal deficits Hosp A/P (1) Bilateral nephrolithiasis Code(s): N20.0 - CALCULUS OF KIDNEY Status: Acute (2) Sepsis Code(s): A41.9 - SEPSIS, UNSPECIFIED ORGANISM Status: Acute (3) UTI (urinary tract infection) Status: Acute (4) Hypertension Code(s): I10 - ESSENTIAL (PRIMARY) HYPERTENSION Status: Chronic - Plan old records reviewed/req, plan discussed w/ family, continue antibiotics continue levaquin spoke with urology on discharge will give cipro discussed with [facility] today expecting discharge tomorrow
[2019-02-25] MEDS: Ondansetron ODT 4 MG TAB PO PRN (02:27)
[2019-02-25] MEDS: HYDROcodone/Acetaminophen 5/325 mg Tablet PO PRN (02:27)
[2019-02-25] MEDS: Amlodipine 10 MG TAB PO SCH (08:32)
[2019-02-25] MEDS: Docusate 100 MG CAP PO SCH (08:33)
[2019-02-25] MEDS: Enoxaparin Sodium 40 MG/0.4 ML SYRINGE SC SCH (08:33)
[2019-02-25 11:00] VITALS: BP 109/68; TEMP 98.5
--- NOTE | 2019-02-26 04:51 | DIS ---
DATE OF ADMISSION: 02/21/2019 DATE OF DISCHARGE: 02/25/2019 DIAGNOSES AT THE TIME OF DISCHARGE: 1. Bilateral nephrolithiasis. 2. Sepsis. 3. Urinary tract infection. 4. Hypertension. 5. Large staghorn calculus of the right renal pelvis with dilatation of the calyces of the right renal collecting system. 6. Cholelithiasis without sonographic evidence of acute cholecystitis. 7. Large hyperechoic mass within the region of the right adrenal gland suspicious for an adenoma. 8. Hypertension. 9. Bladder prolapse. 10. Gastroesophageal reflux disease. CONSULTANTS: Dr. Milad Boland of urology Service. HOSPITAL COURSE: The patient is a 64-year-old a female with history of hypertension, but not taking any blood pressure medications prior to this hospitalization, who was admitted to the hospital with some abdominal pain and back pain. The pain was radiating down into her groin. Also, she noticed some elizabeth blood in her urine. She had nausea and vomiting. She came to the emergency room for further evaluation. In the emergency room, her CT scan of the abdomen and pelvis showed bilateral large staghorn calculus. There was some concern about bilateral obstruction in her urinary system. She got admitted for further evaluation. LABORATORY DATA: At the time of [place] [address], hemoglobin 13.6, hematocrit 41.9. Sodium 137, potassium 3.1, chloride 105, CO2 of 21, BUN 23, creatinine 0.95, alkaline phosphatase was 191, and CK was 503. Urinalysis was significant for nitrates and 3+ bacteria. IMAGING: The CT scan of the brain did not show any acute intracranial abnormalities. Also on the CT of the abdomen and pelvis, there was evidence of some adrenal mass, which was read by radiologist as most likely adenoma. The patient got admitted to the hospital for Urology consultation and management of her staghorn calculus. She was started on vancomycin and levofloxacin while in the emergency room and subsequently she was seen by Dr. Boland for Urology evaluation. He recommended bilateral nephrostomy tubes to be placed and continue antibiotics for at least 2 weeks. Her blood cultures came back negative and urine culture came back positive for Proteus, which was sensitive to multiple antibiotics. The patient was switched to levofloxacin. Her white count gradually went down and yesterday was 14.6. Her kidney function was within normal limits. She had nephrostomy tubes placed by radiologist the next day. In the meantime, she had echocardiogram done, which did not show any significant abnormalities. Her LVEF was within normal limits. She was continued on Levaquin. Clinically, she is doing very well today. Her vitals, blood pressure is 109/86, pulse is 99, respirations 16, temperature is 98.5, and O2 saturation is 94% on room air. She was seen and examined before she was discharged. Recommendation is to stay on a low-salt diet for her hypertension. ACTIVITIES: As tolerated. MEDICATIONS AT THE TIME OF DISCHARGE: 1. Ciprofloxacin 500 mg twice daily. 2. Amlodipine 10 mg half a tablet once a day. 3. Tylenol p.r.n. as needed. FOLLOWUP: She is going to follow up with her primary care physician in [address] Boland in 2 weeks. TIME SPENT: Time spent on this discharge is less than 30 minutes. Job ID: [id number]
== END 2019-02-25 13:15 | disposition home or self-care (01) | DRG 872 ==
LOC: ERS 09:21 → SURG A 14:00
PROVIDERS: ADMIT Internal Medicine; ATTEND Internal Medicine
PROC: 0T9330Z Drainage of Right Kidney Pelvis with Drainage Device, Percutaneous Approach (ICD-10-PCS; principal; 2019-02-23)
PROC: 0T9430Z Drainage of Left Kidney Pelvis with Drainage Device, Percutaneous Approach (ICD-10-PCS; 2019-02-23)
DX: A41.9 Sepsis, unspecified organism (principal); N39.0 Urinary tract infection, site not specified; N20.0 Calculus of kidney; B96.4 Proteus (mirabilis) (morganii) as the cause of diseases classified elsewhere; Z16.24 Resistance to multiple antibiotics; M19.90 Unspecified osteoarthritis, unspecified site; I10 Essential (primary) hypertension; K21.9 Gastro-esophageal reflux disease without esophagitis; E27.8 Other specified disorders of adrenal gland; Z88.0 Allergy status to penicillin; Z90.710 Acquired absence of both cervix and uterus; Z87.891 Personal history of nicotine dependence
CPT/HCPCS: 36415; 50430; 50432; 70450; 71045; 74177; 76705; 80048; 80053; 80076; 80306; 80307; 81003; 81015; 82550; 83605; 83690; 83880; 84146; 84484; 85025; 85610; 85730; 87040; 87077; 87086; 87186; 93005; 93306; 94640; 96361; 96365; 96375; J1650; J1956; J2250; J2405; J2550; J3010; J3370; J3480; J7620; Q0162; Q9966

== ENCOUNTER 2019-03-22 12:00 | Inpatient (IN) | payer BC ==
[2019-03-22 13:24] VITALS: BMI 31.7
[2019-03-31] MEDS ORDERED: Gentamicin 80 MG/2 ML VIAL ONE ×2 (06:38→06:48)
[2019-03-31] MEDS ORDERED: Sodium Chloride 0.9% 0 ML ONE (06:39)
[2019-03-31] MEDS ORDERED: CEFAZOLIN 1 GM VIAL ONE (06:47)
[2019-03-31] MEDS ORDERED: Sodium Chloride 0.9% 100 ML ONE ×2 (06:48→06:59)
[2019-03-31] MEDS ORDERED: Ondansetron PF 4 MG/2 ML Vial ONE (07:12)
[2019-03-31] MEDS ORDERED: Famotidine/PF 20 mg/2ml Vial ONE (07:20)
[2019-03-31] MEDS ORDERED: Scopolamine 1.5 mg/72 hour Patch ONE (07:20)
[2019-03-31] MEDS ORDERED: Fentanyl 100 MCG/2 ML VIAL ONE ×2 (07:24→09:56)
--- NOTE | 2019-03-31 08:22 | RAD ---
KUB: DATE: 03/31/2019. COMPARISON: None available. HISTORY: Renal stone disease. FINDINGS: There are prominent staghorn calculi bilaterally, better evaluated on the 03/29/2019 CT examination. T here are percutaneous drainage catheters overlying the renal shadows bilaterally, which extend into the region of bilateral ureters. These do not extend into the region of the urinary bladder on either side. Their configuration is unchanged when compared to the blue line operator from the 03/29/2019 CT examination. Bowel gas pattern is nonobstructed. IMPRESSION: Bilateral staghorn renal calculi with ureteral stents inserted percutaneously. There has been no camacho ge in the appearance when compared to blue line operator radiograph from CT abdomen and pelvis performed 03/29/2019. Please see the CT report for full detail. Transcribed Date/Time: 03/31/2019 9:39 AM
[2019-03-31] MEDS ORDERED: Iothalamate Meglumine 60% 50 ML VIAL FS ONE (08:30)
[2019-03-31] MEDS ORDERED: Promethazine HCl 25 MG/ML VIAL IM PRN (09:46)
[2019-03-31] MEDS ORDERED: Ondansetron HCl/PF 4 MG/2 ML Vial IVP PRN (09:46)
[2019-03-31] MEDS ORDERED: Promethazine HCl 25 MG/ML VIAL SLOW IVP PRN (09:46)
[2019-03-31] MEDS ORDERED: Metoclopramide HCl 10 MG/2 ML VIAL ONE (10:14)
[2019-03-31] MEDS ORDERED: Dexamethasone 20 MG/5 ML VIAL ONE (10:14)
[2019-03-31] MEDS ORDERED: Glycopyrrolate 0.2 MG/ML 5 ML SYRINGE ONE (10:14)
[2019-03-31] MEDS ORDERED: Rocuronium Bromide 10 MG/ML (10ML VIAL) ONE (10:14)
[2019-03-31] MEDS ORDERED: Lidocaine 1% PF 5 ML VIAL ONE (10:14)
[2019-03-31] MEDS ORDERED: PROPOFOL 200 MG/20 ML VIAL ONE (10:14)
[2019-03-31] MEDS ORDERED: Promethazine HCl 25 MG/ML VIAL ONE (10:55)
[2019-03-31 12:01] LABS: Anion Gap 11 mmol/L (10-20); BUN (Urea Nitrogen) 14 mg/dL (9.8-20.1); Calc. Creatinine Clearance 86 mL/min (70-130); Calcium 9.1 mg/dL (7.8-10.44); Carbon Dioxide 25 mmol/L (23-31); Chloride 104 mmol/L (98-107); Estimated GFR-MDRD 71; Glucose 185 mg/dL (80-115); Potassium 3.2 mmol/L (3.5-5.1); Sodium 137 mmol/L (136-145)
[2019-03-31] MEDS ORDERED: diphenhydrAMINE 25 MG CAP PO PRN (13:08)
[2019-03-31] MEDS ORDERED: Mag-Al 1200 mg/1200 mg/30 ML UDCUP PO PRN (13:08)
[2019-03-31] MEDS ORDERED: Ondansetron PF 4 MG/2 ML Vial IVP PRN (13:08)
[2019-03-31] MEDS ORDERED: Morphine 4 MG/ML VIAL SLOW IVP PRN (13:08)
[2019-03-31] MEDS ORDERED: Morphine 2 MG/ML SYRINGE SLOW IVP PRN (13:08)
[2019-03-31] MEDS ORDERED: Bisacodyl 10 MG SUPP PR PRN (13:08)
[2019-03-31] MEDS ORDERED: HYDROcodone/Acetaminophen 5/325 mg Tablet PO PRN ×2 (13:08)
[2019-03-31] MEDS ORDERED: hydrALAZINE 20 MG/ML VIAL SLOW IVP PRN (13:08)
[2019-03-31] MEDS ORDERED: Oxybutynin 5 MG TAB PO PRN (13:08)
[2019-03-31] MEDS: metroNIDAZOLE 500 MG in Premix Bag 1 BAG IVPB SCH ×2 (14:19→20:59)
[2019-03-31] MEDS: Sodium Chloride 0.9% 1,000 ML IV SCH ×2 (14:19→20:58)
--- NOTE | 2019-03-31 17:12 | OP ---
DATE OF PROCEDURE: 03/31/2019 SERVICE: Urology. PREOPERATIVE DIAGNOSIS: Bilateral staghorn calculi. POSTOPERATIVE DIAGNOSIS: Bilateral staghorn calculi. PROCEDURE PERFORMED: Left percutaneous nephrolithotomy greater than 1.5 cm. INDICATION FOR PROCEDURE: Ms. Sosa is a 64-year-old white female, who presented with urinary tract infection and hydronephrosis. She was found have bilateral staghorns and underwent bilateral nephroureteral catheter placement. After treating with antibiotics, she is now presented for definitive removal of her stones. We elected to start on the left side, which is slightly more symptomatic than the right. The right side will have to be deferred to a later date. All risks and benefits have been discussed and she has agreed to proceed forward. DESCRIPTION OF PROCEDURE: After identification of armband and verification of consent, the patient was brought back to the operating room, where she underwent general anesthesia with endotracheal intubation. She was then placed in the prone position and prepped and draped in the usual sterile fashion with all pressure points padded. Initial fluoroscopy demonstrated a nephroureteral catheter in place with a large branch staghorn calculus in the lower pole of the left kidney. The nephroureteral catheter was cannulated with the Amplatz Super Stiff wire down to the level of the bladder. The nephroureteral catheter was then removed. An 11 blade was used to make a larger skin incision and allow passage of a dual-lumen catheter over the Super Stiff wire into the mid ureter. A second Super Stiff wire was moved down through the dual-lumen catheter down into the bladder. The dual-lumen catheter was then removed and the one of the Super Stiff wires attached to the drapes as a safety wire. Hemostats were then used to dilate the fascia gently under fluoroscopy to ensure that we were not too close to the kidney. The NephroMax balloon dilator was then advanced with the sheath already backloaded over the balloon dilator, was advanced up to the level of the stone. The balloon was insufflated up to 30-Nauruan at approximately 16 atmospheres. This did allow for two pops of the fascia to allow for proper dilation. At this point, the clear NephroMax PCNL sheath was advanced to the rim of the stone and then the balloon dilator removed leaving both wires in place. The sheath was then irrigated with saline to remove any blood clots and the nephroscope was inserted into the kidney. There was only a small amount of bleeding noted. The stone was immediately apparent using the lithoclast bimodal Lithotripter using both ultrasonic and pneumatic lithotripsy. The stone was fragmented completely in the renal pelvis and in the lower pole. All fragments were vacuumed out. There may have been one or two small fragments that did escape into the ureter, which I did not pursue as the patient is already going to undergo another ureteroscopy on this side. Upon completion, there was a stone in the upper pole, which I had already known and talked to the patient, I would not be able to access from this percutaneous access as well as the lower pole stone that I also could not access without undue torque on the kidney, which could potentially cause a rupture and significant bleeding. As such, given that there was only two more fragments of stone, probably measuring about 8 to 9 mm each. I felt that this was sufficient enough that approximately about 85% to possibly 90% of her stone has already been removed using the PCNL approach. As such to avoid any trauma in the kidney, any small fragments were evacuated using the lithoclast device and then, the nephroscope removed. Antegrade ureteral stent was placed over the safety wire backwards down, so the stent was in its appropriate positioning for antegrade stent placement. After removal of the wire, there was a good curl in the bladder and a partial curl within the kidney. The kidney portion of the stent did appear to be within the renal pelvis. The 22-Nauruan percutaneous nephrostomy catheter was then advanced over the remaining Super Stiff wire through the sheath into the renal pelvis. The balloon was then insufflated with a mixture of saline and contrast and then, the nephrostogram performed, which showed that the catheter was sitting within the renal pelvis and good location. The nephrostomy catheter was then sutured in place and the wire removed as well as the sheath that was sitting around the nephrostomy catheter. The suture was done with a 3-0 nylon. The nephrostomy catheter was then gently flushed with a small amount of irrigation to remove some contrast material and any blood clots and then hooked up to gravity drainage. 4x4s then placed around the nephrostomy catheter with sponge tape. The patient was then taken out of positioning and returned back to the supine position, extubated, awakened, taken to PACU for recovery in stable condition. COMPLICATIONS: None. ESTIMATED BLOOD LOSS: 100 mL. RETAINED TUBES AND DRAINS: 16-Nauruan Young catheter and a 22-Nauruan nephrostomy catheter on the right. The patient still has her left percutaneous nephroureteral catheter, which was originally placed by Interventional Radiology on the right side, which we still leave in place until her next PCNL. SPECIMENS: Stone for stone analysis. DISPOSITION: The patient will be kept in the hospital overnight. Once she is discharged, we will plan for completion ureteroscopy on the left in approximately 2 to 3 weeks after the hematuria is cleared up. After that point, we can consider working on the right side with a PCNL and ureteroscopy for that side. Job ID: [id number]
[2019-03-31] MEDS: Docusate 100 MG CAP PO SCH (20:59)
[2019-03-31] MEDS: Famotidine/PF 20 mg/2ml Vial SLOW IVP SCH (20:59)
[2019-04-01 04:34] LABS: #Lymphocytes 1.4 thou/uL (1.20-3.40); #Monocytes 1.2 thou/uL (0.11-0.59); #Neutrophils 10.9 thou/uL (1.40-6.50); %Basophils 0.1 % (0.0-1.0); %Eosinophils 0.2 % (0.0-10.0); %Lymphocytes 10.2 % (21.0-51.0); %Monocytes 8.9 % (0.0-10.0); %Neutrophils 80.6 % (42.0-75.0); Hemoglobin 11.2 g/dL (12.0-16.0); Mean Corpuscular HGB CONC 33.7 g/dL (32.0-36.0); Mean Corpuscular Hemoglobin 30.2 pg (27.0-31.0); Mean Corpuscular Volume 89.5 fL (78.0-98.0); Mean Platelet Volume 7.2 fL (7.4-10.4); Platelet Count 489 thou/uL (130-400); RBC Distribution Width 12.4 % (11.5-14.5); White Blood Cell (WBC) Count 13.6 thou/uL (4.8-10.8)
[2019-04-01 04:46] LABS: Anion Gap 13 mmol/L (10-20); BUN (Urea Nitrogen) 18 mg/dL (9.8-20.1); Calc. Creatinine Clearance 81 mL/min (70-130); Calcium 8.8 mg/dL (7.8-10.44); Carbon Dioxide 22 mmol/L (23-31); Chloride 108 mmol/L (98-107); Estimated GFR-MDRD 67; Glucose 176 mg/dL (80-115); Potassium 3.5 mmol/L (3.5-5.1); Sodium 139 mmol/L (136-145)
[2019-04-01] MEDS: metroNIDAZOLE 500 MG in Premix Bag 1 BAG IVPB SCH (05:13)
[2019-04-01 07:51] VITALS: BP 142/74; TEMP 98.1
[2019-04-01] MEDS: Docusate 100 MG CAP PO SCH (08:57)
[2019-04-01] MEDS: Famotidine/PF 20 mg/2ml Vial SLOW IVP SCH (08:57)
[2019-04-01] MEDS ORDERED: Amlodipine 5 MG TAB PO SCH (09:00)
== END 2019-04-01 13:58 | disposition home or self-care (01) | DRG 661 ==
LOC: SURG A 03-31 06:00 → SJJU 03-31 13:36
PROVIDERS: ADMIT Urology; ATTEND Urology
PROC: 0TC13ZZ Extirpation of Matter from Left Kidney, Percutaneous Approach (ICD-10-PCS; principal; 2019-03-31)
DX: N13.6 Pyonephrosis (principal); N20.0 Calculus of kidney; I10 Essential (primary) hypertension; F17.210 Nicotine dependence, cigarettes, uncomplicated; Z79.899 Other long term (current) drug therapy; Z98.51 Tubal ligation status; Z98.890 Other specified postprocedural states; Z88.0 Allergy status to penicillin; Z88.8 Allergy status to other drugs, medicaments and biological substances
CPT/HCPCS: 36415; 74018; 74176; 76000; 80048; 82365; 85025; 86850; 86900; 86901; 88300; J0690; J1580; J1956; J2405; J2550; J3010; J3370; J3490; S0028

== ENCOUNTER 2019-03-22 13:02 | Outpatient (CLI) | payer BC ==
[2019-03-22 15:04] LABS: Mean Corpuscular HGB CONC 32.4 g/dL (32.0-36.0); Mean Corpuscular Hemoglobin 28.9 pg (27.0-31.0); Mean Corpuscular Volume 89.3 fL (78.0-98.0); Platelet Count 380 thou/uL (130-400); RBC Distribution Width 13.1 % (11.5-14.5); Red Blood Cell (RBC) Count 4.48 mill/uL (4.20-5.40); White Blood Cell (WBC) Count 19.2 thou/uL (4.8-10.8)
[2019-03-22 15:13] LABS: PTT 29.3 SEC (22.9-36.1); Prothrombin Time 13.1 SEC (12.0-14.7)
[2019-03-22 15:28] LABS: Anion Gap 19 mmol/L (10-20); BUN (Urea Nitrogen) 18 mg/dL (9.8-20.1); Calc. Creatinine Clearance 0 mL/min (70-130); Calcium 9.7 mg/dL (7.8-10.44); Carbon Dioxide 19 mmol/L (23-31); Chloride 104 mmol/L (98-107); Estimated GFR-MDRD 68; Glucose 130 mg/dL (80-115); Potassium 3.6 mmol/L (3.5-5.1); Sodium 138 mmol/L (136-145)
== END 2019-03-22 13:03 | disposition home or self-care (01) ==
LOC: LABBT 13:02
PROVIDERS: ATTEND Urology
DX: Z01.818 Encounter for other preprocedural examination (principal); N20.0 Calculus of kidney
CPT/HCPCS: 80048; 81001; 85027; 85610; 85730; 87086; 93005; 93010

== ENCOUNTER 2019-04-19 08:35 | Outpatient (CLI) | payer BC ==
[2019-04-19 09:58] LABS: PTT 27.9 SEC (22.9-36.1); Prothrombin Time 12.8 SEC (12.0-14.7)
[2019-04-19 10:01] LABS: Hemoglobin 12.8 g/dL (12.0-16.0); Mean Corpuscular HGB CONC 33.2 g/dL (32.0-36.0); Mean Corpuscular Hemoglobin 29.4 pg (27.0-31.0); Mean Corpuscular Volume 88.6 fL (78.0-98.0); Mean Platelet Volume 7.9 fL (7.4-10.4); Platelet Count 388 thou/uL (130-400); RBC Distribution Width 12.7 % (11.5-14.5); Red Blood Cell (RBC) Count 4.34 mill/uL (4.20-5.40)
[2019-04-19 10:15] LABS: Anion Gap 12 mmol/L (10-20); BUN (Urea Nitrogen) 17 mg/dL (9.8-20.1); Calc. Creatinine Clearance 0 mL/min (70-130); Calcium 9.5 mg/dL (7.8-10.44); Carbon Dioxide 25 mmol/L (23-31); Chloride 105 mmol/L (98-107); Estimated GFR-MDRD 76; Glucose 114 mg/dL (80-115); Potassium 3.3 mmol/L (3.5-5.1); Sodium 139 mmol/L (136-145)
--- NOTE | 2019-04-20 16:47 | EKG ---
Test Reason : Blood Pressure : / mmHG Vent. Rate : 078 BPM Atrial Rate : 078 BPM P-R Int : 142 ms QRS Dur : 074 ms QT Int : 388 ms P-R-T Axes : 063 006 042 degrees QTc Int : 442 ms Normal sinus rhythm Low voltage QRS Cannot rule out Anterior infarct (cited on or before 22-MAR-2019) Abnormal ECG When compared with ECG of 22-MAR-2019 13:59, (Unconfirmed) Previous ECG has undetermined rhythm, needs review Confirmed by DR. Lucero MONTAGUE ([id number]) on 04/20/2019 4:47:01 PM Referred By: SEGUNDO Confirmed By:DR. Lucero MONTAGUE
== END 2019-04-19 08:36 | disposition home or self-care (01) ==
LOC: LABBT 08:35
PROVIDERS: ATTEND Urology
DX: Z01.818 Encounter for other preprocedural examination (principal); N20.0 Calculus of kidney
CPT/HCPCS: 80048; 81001; 85027; 85610; 85730; 87086; 93005; 93010

== ENCOUNTER 2019-04-22 06:02 | Day surgery (SDC) | payer BC ==
[2019-04-19 08:55] VITALS: BMI 30.7
[2019-04-22] MEDS ORDERED: Levofloxacin 500 mg/D5W 100 ml Premix Bag ONE (06:10)
[2019-04-22] MEDS ORDERED: Fentanyl 100 MCG/2 ML VIAL ONE (07:10)
[2019-04-22] MEDS ORDERED: Ondansetron ODT 4 MG TAB ONE (07:10)
[2019-04-22] MEDS ORDERED: Scopolamine 1.5 mg/72 hour Patch ONE (07:14)
[2019-04-22] MEDS ORDERED: Morphine 2 MG/ML SYRINGE ONE (10:44)
--- NOTE | 2019-04-22 11:59 | OP ---
DATE OF PROCEDURE: 04/22/2019 SERVICE: Urology. PREOPERATIVE DIAGNOSIS: Bilateral nephrolithiasis. POSTOPERATIVE DIAGNOSES: Bilateral nephrolithiasis. PROCEDURES PERFORMED: Cystoscopy with ureteroscopy, laser lithotripsy, and placement of a 6 x 24 double-J stent with string attached. INDICATIONS FOR PROCEDURE: Ms. Sosa is a 64-year-old white female, who initially had presented to in with large bilateral renal stones resembling a staghorn calculi. Due to the large size of the stone, she has already undergone a left-sided PCNL. We now coming back to remove the remaining left-sided stones that were not able to be removed during PCNL surgery. Of note, she still has large stones on the right and a right nephroureteral catheter still in place. Risks and benefits of the surgery were discussed and she has agreed to proceed forward. DESCRIPTION OF PROCEDURE: After identification of armband and verification of consent, the patient was brought back to the operating room, where she underwent general anesthesia with endotracheal intubation. She was then placed in dorsal lithotomy position and prepped and draped in usual sterile fashion. After appropriate time-out, a lubricated 22-Tamazight rigid cystoscope was introduced per urethra into the bladder. Attention was turned towards the left ureteral orifice from which there was a stent emanating. Flexible grasper was used to grasp the stent and bring it up to the level of the urethral meatus. A 0.035 Sensor wire was advanced through the urethral stent up to the level of renal pelvis. The stent was then removed and discarded. A dual-lumen catheter was advanced over the Sensor wire up to the level of the proximal ureter. An Amplatz Super Stiff wire were then placed through the second lumen of the dual lumen into the renal pelvis and the dual-lumen removed. A 13/15 x 28 cm ureteral access sheath was then advanced with ease up the Super Stiff wire up to the level of proximal ureter. The inner cannula and the Super Stiff wire were then removed leaving the outer sheath and Sensor wire in place as a safety wire. A flexible digital ureteroscope was then passed up through the ureteral access sheath into the kidney. A 273 micron ball-tip laser fiber was then used to fragment all remaining stones that were present and there were several one in the upper pole, one in the mid pole, and one in the lower pole. Each were fragmented using a dusting setting on the laser fiber. The stones were fragmented and completely pulverized into submillimeter fragments. Upon completion, there were no fragments remaining that were over a millimeter in size. Due to the extremely effective nature of the dusting setting with a ball tip laser fiber, we were not able to actually grasp any kind of stone fragments with the basket as these were too little and as such, we elected not to perform any basketing. The patient has already known calcium phosphate based stones from prior PCNL and stone analysis being obtained at that time. As such, I feel that all these fragments will pass on their own, so pull-back ureteroscopy was employed. No additional stones were found within the ureter. The ureteroscope and sheath were then removed and the cystoscope was back-loaded over the Sensor wire back in the bladder. A 6 x 24 double-J stent with string attached was advanced over the Sensor wire up to the renal pelvis. The wire was then removed leaving a partial curl in the kidney and a good curl in the bladder. The cystoscope was then removed and the string was attached to the patient's inner thigh with an OpSite. She was then awakened and taken to PACU for recovery in stable condition. Of note, the patient did have relatively large hemorrhoids, which appeared somewhat inflamed. These may be amenable to treatment by a surgeon at a later date if she desires. I will discuss this with her at her postop appointment. COMPLICATIONS: None. ESTIMATED BLOOD LOSS: Minimal. RETAINED TUBES AND DRAINS: 6 x 24 double-J stent with a string attached on the left. SPECIMENS: None. DISPOSITION: The patient will be discharged home and follow up with me in approximately 2 weeks for a postop check. She will be instructed to remove her stent on Thursday by gently pulling the string until the entire stent is removed. We will then make plans for definitive treatment on the right side as a future date. Job ID: [id number]
[2019-04-22] MEDS ORDERED: Lidocaine 1% PF 5 ML VIAL ONE (13:22)
[2019-04-22] MEDS ORDERED: Glycopyrrolate 0.2 MG/ML 5 ML SYRINGE ONE (13:22)
[2019-04-22] MEDS ORDERED: Rocuronium Bromide 10 MG/ML (10ML VIAL) ONE (13:22)
[2019-04-22] MEDS ORDERED: Dexamethasone 20 MG/5 ML VIAL ONE (13:22)
[2019-04-22] MEDS ORDERED: Ondansetron PF 4 MG/2 ML Vial ONE (13:22)
[2019-04-22] MEDS ORDERED: PROPOFOL 200 MG/20 ML VIAL ONE (13:22)
== END 2019-04-22 12:01 | disposition home or self-care (01) ==
LOC: SDC 06:02
PROVIDERS: ATTEND Urology
PROC: 0TF48ZZ Fragmentation in Left Kidney Pelvis, Via Natural or Artificial Opening Endoscopic (ICD-10-PCS; principal; 2019-04-22)
PROC: 0T778DZ Dilation of Left Ureter with Intraluminal Device, Via Natural or Artificial Opening Endoscopic (ICD-10-PCS; principal; 2019-04-22)
DX: N20.0 Calculus of kidney (principal); E27.8 Other specified disorders of adrenal gland; K64.9 Unspecified hemorrhoids; M19.90 Unspecified osteoarthritis, unspecified site; I10 Essential (primary) hypertension; M35.3 Polymyalgia rheumatica; Z87.891 Personal history of nicotine dependence; Z79.899 Other long term (current) drug therapy; Z88.0 Allergy status to penicillin; Z88.8 Allergy status to other drugs, medicaments and biological substances
CPT/HCPCS: 76000; C1758; C1769; J1956; J2270; J3010; Q0162

== ENCOUNTER 2019-05-25 07:15 | Day surgery (SDC) | payer BC ==
[2019-05-24 12:55] VITALS: BMI 31.9
--- NOTE | 2019-05-25 08:41 | SPC ---
NEPHROSTOMY TUBE EXCHANGE WITH FLUOROSCOPIC GUIDANCE: HISTORY: Hydronephrosis. Right renal calculi. EXPOSURE 1.3 minutes 32,337 mGy/cm2 FINDINGS: Successful right nephrostomy tube exchange. A 5 Turkish Berenstein catheter was exchanged for a new 5 Turkish Berenstein catheter. Distal tip is in the distal right ureter. Administration of contrast opacifies the urinary bladder. PROCEDURE IN DETAIL: Consent obtained to perform a right nephrostomy tube exchange. The patient was prepped and draped in a sterile fashion and 1% lidocaine buffered with sodium bicarbonate was used for local anesthesia. Contrast was initially administered via the existing Berenstein catheter to document appropriate posi tion. Contrast opacifies the distal ureter and urinary bladder. Through the existing Berenstein catheter, a 0.35 Bentson Glidewire was advanced into the bladder. The wire was coiled in the bladder and the existing Berenstein catheter was exchanged for a new 5 Turkish Berenstein catheter. The wire was removed. Contrast was administered and demonstrates appropriate position. Contrast opacifies the distal ureter and urinary bladder. The catheter was sutured to the patient. The patient tolerated the procedure well. No immediate or post procedure complications IMPRESSION: Successful tube exchange. Transcribed Date/Time: 05/25/2019 9:08 AM
[2019-05-25 10:11] VITALS: BP 172/97; TEMP 98
--- NOTE | 2019-05-27 15:58 | SPC ---
"PRELIMINARY REPORT" NEPHROSTOMY TUBE EXCHANGE WITH FLUOROSCOPIC GUIDANCE: HISTORY: Hydronephrosis. Right renal calculi. EXPOSURE 1.3 minutes 32,337 mGy/cm2 FINDINGS: Successful right nephrostomy tube exchange. A 5 Central African Berenstein catheter was exchanged for a new 5 Central African Berenstein catheter. Distal tip is in the distal right ureter. Administration of contrast opacifies the urinary bladder. PROCEDURE IN DETAIL: Consent obtained to perform a right nephrostomy tube exchange. The patient was prepped and draped in a sterile fashion and 1% lidocaine buffered with sodium bicarbonate was used for local anesthesia. Contrast was initially administered via the existing Berenstein catheter to document appropriate posi tion. Contrast opacifies the distal ureter and urinary bladder. Through the existing Berenstein catheter, a 0.35 Bentson Glidewire was advanced into the bladder. The wire was coiled in the bladder and the existing Berenstein catheter was exchanged for a new 5 Central African Berenstein catheter. The wire was removed. Contrast was administered and demonstrates appropriate position. Contrast opacifies the distal ureter and urinary bladder. The catheter was sutured to the patient. The patient tolerated the procedure well. No immediate or post procedure complications IMPRESSION: Successful tube exchange. Transcribed Date/Time: 05/27/2019 3:58 PM
--- NOTE | 2019-05-27 15:58 | SPC ---
"PRELIMINARY REPORT" NEPHROSTOMY TUBE EXCHANGE WITH FLUOROSCOPIC GUIDANCE: HISTORY: Hydronephrosis. Right renal calculi. EXPOSURE 1.3 minutes 32,337 mGy/cm2 FINDINGS: Successful right nephrostomy tube exchange. A 5 Burmese Berenstein catheter was exchanged for a new 5 Burmese Berenstein catheter. Distal tip is in the distal right ureter. Administration of contrast opacifies the urinary bladder. PROCEDURE IN DETAIL: Consent obtained to perform a right nephrostomy tube exchange. The patient was prepped and draped in a sterile fashion and 1% lidocaine buffered with sodium bicarbonate was used for local anesthesia. Contrast was initially administered via the existing Berenstein catheter to document appropriate posi tion. Contrast opacifies the distal ureter and urinary bladder. Through the existing Berenstein catheter, a 0.35 Bentson Glidewire was advanced into the bladder. The wire was coiled in the bladder and the existing Berenstein catheter was exchanged for a new 5 Burmese Berenstein catheter. The wire was removed. Contrast was administered and demonstrates appropriate position. Contrast opacifies the distal ureter and urinary bladder. The catheter was sutured to the patient. The patient tolerated the procedure well. No immediate or post procedure complications IMPRESSION: Successful tube exchange. Transcribed Date/Time: 05/27/2019 3:58 PM
== END 2019-05-25 08:40 | disposition home or self-care (01) ==
LOC: SPEC 07:15
PROVIDERS: ATTEND Urology
PROC: 0T25X0Z Change Drainage Device in Kidney, External Approach (ICD-10-PCS; principal; 2019-05-25)
DX: N13.2 Hydronephrosis with renal and ureteral calculous obstruction (principal); E27.8 Other specified disorders of adrenal gland; I10 Essential (primary) hypertension; M35.3 Polymyalgia rheumatica; Z87.891 Personal history of nicotine dependence; Z79.899 Other long term (current) drug therapy; Z88.0 Allergy status to penicillin; Z88.8 Allergy status to other drugs, medicaments and biological substances
CPT/HCPCS: 50431; 50436; 75984

== ENCOUNTER 2019-06-01 09:39 | Outpatient (CLI) | payer BC ==
[2019-06-01 12:23] LABS: Hemoglobin 12.8 g/dL (12.0-16.0); Mean Corpuscular HGB CONC 32.9 g/dL (32.0-36.0); Mean Corpuscular Hemoglobin 29.5 pg (27.0-31.0); Mean Corpuscular Volume 89.7 fL (78.0-98.0); Mean Platelet Volume 7.4 fL (7.4-10.4); Platelet Count 442 thou/uL (130-400); RBC Distribution Width 12.9 % (11.5-14.5); Red Blood Cell (RBC) Count 4.34 mill/uL (4.20-5.40); White Blood Cell (WBC) Count 13.5 thou/uL (4.8-10.8)
[2019-06-01 12:24] LABS: INR-International Normal Ratio 0.9; PTT 32.1 SEC (22.9-36.1); Prothrombin Time 12.4 SEC (12.0-14.7)
[2019-06-01 12:36] LABS: Anion Gap 15 mmol/L (10-20); BUN (Urea Nitrogen) 19 mg/dL (9.8-20.1); Calc. Creatinine Clearance 0 mL/min (70-130); Calcium 9.6 mg/dL (7.8-10.44); Carbon Dioxide 23 mmol/L (23-31); Chloride 106 mmol/L (98-107); Estimated GFR-MDRD 77; Glucose 124 mg/dL (80-115); Potassium 3.5 mmol/L (3.5-5.1); Sodium 140 mmol/L (136-145)
--- NOTE | 2019-06-01 17:04 | EKG ---
Test Reason : Blood Pressure : / mmHG Vent. Rate : 097 BPM Atrial Rate : 097 BPM P-R Int : 136 ms QRS Dur : 078 ms QT Int : 350 ms P-R-T Axes : 057 014 047 degrees QTc Int : 444 ms Normal sinus rhythm Low voltage QRS Cannot rule out Anterior infarct , age undetermined Abnormal ECG Confirmed by SCARLET PEÑALOZA ([id number]) on 06/01/2019 5:03:51 PM Referred By: SEGUNDO Confirmed By:SCARLET PEÑALOZA
== END 2019-06-01 09:40 | disposition home or self-care (01) ==
LOC: LABBT 09:39
PROVIDERS: ATTEND Urology
DX: Z01.818 Encounter for other preprocedural examination (principal); N20.0 Calculus of kidney; E27.8 Other specified disorders of adrenal gland
CPT/HCPCS: 80048; 81001; 85027; 85610; 85730; 87086; 93005; 93010

== ENCOUNTER 2019-06-01 10:30 | Inpatient (IN) | payer BC ==
[2019-06-01 11:06] VITALS: BMI 30.5
[2019-06-09] MEDS ORDERED: Iothalamate Meglumine 60% 50 ML VIAL FS ONE (06:39)
[2019-06-09] MEDS ORDERED: Fentanyl 100 MCG/2 ML VIAL ONE ×3 (06:41→10:33)
[2019-06-09] MEDS ORDERED: Midazolam HCl 2 mg/2 ml Vial ONE ×2 (06:41→07:05)
[2019-06-09] MEDS ORDERED: Levofloxacin 500 mg/D5W 100 ml Premix Bag ONE (06:48)
[2019-06-09] MEDS ORDERED: Scopolamine 1.5 mg/72 hour Patch ONE (07:05)
[2019-06-09] MEDS ORDERED: Ondansetron HCl/PF 4 MG/2 ML Vial IVP PRN (09:20)
[2019-06-09] MEDS ORDERED: Morphine Sulfate 2 MG/ML SYRINGE SLOW IVP PRN (09:20)
[2019-06-09] MEDS ORDERED: Promethazine HCl 25 MG/ML VIAL IM PRN (09:20)
[2019-06-09] MEDS ORDERED: Promethazine HCl 25 MG/ML VIAL SLOW IVP PRN (09:20)
[2019-06-09] MEDS ORDERED: Glycopyrrolate 0.2 MG/ML 5 ML SYRINGE ONE (09:24)
[2019-06-09] MEDS ORDERED: Rocuronium Bromide 10 MG/ML (10ML VIAL) ONE (09:24)
[2019-06-09] MEDS ORDERED: PROPOFOL 200 MG/20 ML VIAL ONE (09:24)
[2019-06-09] MEDS ORDERED: Dexamethasone 20 MG/5 ML VIAL ONE (09:24)
[2019-06-09] MEDS ORDERED: Ondansetron PF 4 MG/2 ML Vial ONE (09:24)
[2019-06-09] MEDS ORDERED: Lidocaine 1% PF 5 ML VIAL ONE (09:24)
[2019-06-09] MEDS ORDERED: PHENYLEPHRINE-NS 100 MCG/ML 10 ML SYRINGE ONE (09:24)
[2019-06-09] MEDS ORDERED: Succinylcholine Chloride 20 MG/ML 10 ml SYRINGE FS ONE (09:24)
[2019-06-09] MEDS ORDERED: Promethazine HCl 25 MG/ML VIAL ONE (09:34)
--- NOTE | 2019-06-09 10:03 | OP ---
DATE OF PROCEDURE: 06/09/2019 SERVICE: Urology PREOPERATIVE DIAGNOSIS: Right renal stone. POSTOPERATIVE DIAGNOSIS: Right renal stone. PROCEDURE PERFORMED: Right percutaneous nephrolithotomy greater than 2 cm, stone measures closer to almost 3 cm in total. INDICATIONS FOR PROCEDURE: Ms. Sosa is a 64-year-old white female, who had presented originally to tx with bilateral staghorn calculi. She has already undergone a left PCNL and left ureteroscopy with complete clearance of stone on the left side. She is now presenting for right-sided PCNL and removal of the bulk of the stone on the right with plans to complete the right side with ureteroscopy at a later date. Risks and benefits have been discussed and she has agreed to proceed forward. DESCRIPTION OF PROCEDURE: After identification of armband and verification of consent, the patient was brought back to the operating room, where she underwent general anesthesia with endotracheal intubation. She was then placed in the prone position and prepped and draped in usual sterile fashion. After appropriate time-out, the nephroureteral catheter on the right was flushed with contrast to confirm good positioning within the renal collecting system, which was indeed confirmed. An Amplatz Super Stiff wire was then placed down the lumen of the nephroureteral catheter down into the bladder. The nephroureteral catheter was then removed and a dual-lumen catheter was advanced over the Super Stiff wire into the proximal ureter, where a second Super Stiff wire was then passed through the second lumen into the bladder. The dual-lumen was then removed using an 11 blade and hemostats. The skin incision was gently widened with the 11 blade and advanced down under fluoroscopic guidance to just outside the kidney to cut the fascia. Hemostats were then used to gently dilate the fascia. A NephroMax balloon dilator was then advanced under fluoroscopic guidance up to the renal parenchyma and then inflated up to 20 atmospheres. The sheath was then advanced over the NephroMax balloon down onto the stone and then the balloon removed leaving both wires in place, one as a working wire and one as a safety wire. The nephroscope was then brought in with the LithoClast ultrasonic device which was used to start fragmenting the stone. There was lower calyceal stones, which were fragmented and some additional stones and an additional calyx that were fragmented. The entire stone in the renal pelvis was fragmented as well as some stone that was starting to go into the proximal ureter. The upper pole stone could not be reached due to the location of the nephroureteral access and requirement to torque too much on the kidney, which could have resulted in renal parenchymal tearing as such I elected to leave the upper pole stone alone and we will deal with this with ureteroscopy as we had planned originally. Upon completion, all the stone had been removed. There were no additional stone fragments that were within reach of the nephroscope. The nephroscope was removed and a 20-German nephrostomy catheter was advanced over the working wire into the renal pelvis under fluoroscopic guidance. 2 mL of sterile water was placed into the balloon and confirmed to be within the renal pelvis by gently doing a nephrostogram. The wire was then removed and the sheath removed off the nephrostomy catheter. The nephrostomy catheter was sewn in place using a 3-0 nylon. The safety wire was then used to advance ureteral stent in an antegrade fashion down the wire until it was fluoroscopically positioned within the bladder and in the kidney. The wire was removed leaving a good curl in the bladder and a partial curl in the kidney. The wires were all removed. The dressing was applied over the nephrostomy catheter and then taped down using sponge tape. The patient had a catheter bag attached to the nephrostomy catheter after gently flushing this with approximately 10 mL of sterile water and then she was flipped back into the supine position, extubated, and awakened, taken to PACU for recovery in stable condition. COMPLICATIONS: None. ESTIMATED BLOOD LOSS: 80 mL. RETAINED TUBES AND DRAINS: A right-sided 6 x 24 double-J stent and a 20-German nephrostomy catheter along with a 16-German Young catheter. SPECIMENS: Stone for stone analysis. DISPOSITION: The patient will be admitted to the hospital for postoperative recovery. If her hemoglobin is stable and she is doing well, a nephrostomy catheter will be removed and she will be discharged home with plans to have definitive ureteroscopy in approximately 2 weeks to remove the remaining stone fragments. Job ID: [id number]
[2019-06-09] MEDS ORDERED: Morphine 4 MG/ML VIAL SLOW IVP PRN (11:25)
[2019-06-09] MEDS ORDERED: HYDROcodone/Acetaminophen 5/325 mg Tablet PO PRN ×2 (11:25)
[2019-06-09] MEDS ORDERED: Bisacodyl 10 MG SUPP PR PRN (11:25)
[2019-06-09] MEDS ORDERED: diphenhydrAMINE 50 MG/ML VIAL IVP PRN (11:25)
[2019-06-09] MEDS ORDERED: Acetaminophen 500 MG TAB PO PRN (11:25)
[2019-06-09] MEDS ORDERED: Hyoscyamine Sulfate SL 0.125 mg Tablet SL PRN (11:25)
[2019-06-09] MEDS ORDERED: Mag-Al 1200 mg/1200 mg/30 ML UDCUP PO PRN (11:25)
[2019-06-09] MEDS ORDERED: hydrALAZINE 20 MG/ML VIAL SLOW IVP PRN (11:25)
[2019-06-09] MEDS ORDERED: Ondansetron PF 4 MG/2 ML Vial IVP PRN (11:25)
[2019-06-09] MEDS ORDERED: Morphine 2 MG/ML SYRINGE SLOW IVP PRN (11:25)
[2019-06-09] MEDS ORDERED: Oxybutynin 5 MG TAB PO PRN (11:25)
[2019-06-09] MEDS ORDERED: Sodium Chloride 0.9% 1,000 ML IV SCH (11:30)
[2019-06-09] MEDS ORDERED: Vancomycin HCl 1 GM in Premix Bag 1 BAG IVPB SCH (19:00)
[2019-06-09] MEDS: Vancomycin HCl 1 GM in Premix Bag 1 BAG IVPB SCH (20:21)
[2019-06-09] MEDS: Docusate 100 MG CAP PO SCH (20:22)
[2019-06-10 06:24] LABS: Anion Gap 14 mmol/L (10-20); BUN (Urea Nitrogen) 14 mg/dL (9.8-20.1); Calc. Creatinine Clearance 92 mL/min (70-130); Calcium 9.5 mg/dL (7.8-10.44); Carbon Dioxide 22 mmol/L (23-31); Chloride 107 mmol/L (98-107); Estimated GFR-MDRD 78; Glucose 153 mg/dL (80-115); Sodium 139 mmol/L (136-145)
[2019-06-10 06:34] LABS: Band 7 % (5-11); Hemoglobin 12.4 g/dL (12.0-16.0); Lymphocytes 6 % (21-51); MDiff Complete? YES; Mean Corpuscular HGB CONC 32.7 g/dL (32.0-36.0); Mean Corpuscular Hemoglobin 29.2 pg (27.0-31.0); Mean Corpuscular Volume 89.4 fL (78.0-98.0); Mean Platelet Volume 7.4 fL (7.4-10.4); Monocytes 11 % (0-10); Neutrophil 76 % (42-75); Platelet Count 405 thou/uL (130-400); RBC Distribution Width 13.3 % (11.5-14.5); Red Blood Cell (RBC) Count 4.26 mill/uL (4.20-5.40); White Blood Cell (WBC) Count 20.2 thou/uL (4.8-10.8)
[2019-06-10] MEDS: Vancomycin HCl 1 GM in Premix Bag 1 BAG IVPB SCH (08:53)
[2019-06-10] MEDS: Docusate 100 MG CAP PO SCH (08:54)
[2019-06-10] MEDS ORDERED: Amlodipine 5 MG TAB PO SCH (09:00)
[2019-06-10] MEDS ORDERED: FLU VACC QS2019-20(6MOS UP)/PF 60 MCG/0.5 ML SYRINGE IM ONE (09:00)
[2019-06-10 16:12] VITALS: BP 118/78; TEMP 98
--- NOTE | 2019-06-10 17:26 | PRG ---
DATE OF SERVICE: 06/10/2019 SUBJECTIVE: The patient states she is feeling fine. She is having some slight right flank pain. She had leakage around her right nephrostomy tube for most of the night, but otherwise states that she is doing fine. Denies any chest pain or shortness of breath. OBJECTIVE: VITAL SIGNS: Temperature 98, pulse 99, respirations 18, blood pressure 118/78, and saturation 96% on room air. GENERAL: No apparent distress. Communicative and alert. CARDIOVASCULAR: Regular rate and rhythm. CHEST: No increased work of breathing. ABDOMEN: Soft, nontender, and nondistended. : Young catheter in place, draining clear yellow urine. BACK: Right nephrostomy tube in place, draining clear yellow urine. EXTREMITIES: No clubbing, cyanosis, or edema. LABORATORY EVALUATION: The patient's white count is 20.2, platelet count of 405. Creatinine of 0.75. ASSESSMENT AND PLAN: A 64-year-old white female with bilateral staghorn calculi, status post complete removal of stones in the left with status post percutaneous nephrolithotomy (PCNL) on the right. Postoperative day #1, she still has some stone left in the upper pole, which we will plan to treat with ureteroscopy in about 2 weeks. For now, her urine looks very clear. I would request that the right nephrostomy catheter be removed. She has an indwelling stent in. She will probably have leakage from her right nephrostomy tube site for a few days, which then should subsequently stop as the tract seals. Young catheter can be removed. I did talk to her about her elevated white count. This is probably secondary to the procedure. I told her she needs to take and stay on her Macrobid and if possible, it would be better for and take the doxycycline, which would work better than the Macrobid; however, the patient had been unable to tolerate the doxycycline due to nausea and vomiting, and in that case, she should just stay on the Macrobid until completed. If she has any further fevers or starts to get worse, she will need to come back to the hospital. Otherwise, she stated that she would like to go home and has had no other strong reason to keep her in the hospital. I will plan to discharge her home, and she will come back to see me in 2 weeks for her ureteroscopy. Job ID: [id number]
--- NOTE | 2019-06-11 03:51 | DIS ---
DATE OF ADMISSION: 06/09/2019 DATE OF DISCHARGE: 06/10/2019 ADMITTING DIAGNOSIS: Right staghorn calculus. DISCHARGE DIAGNOSIS: Right staghorn calculus. PROCEDURE PERFORMED: Right PCNL over 2.5 cm. BRIEF HISTORY: Mrs. Sosa is a 64-year-old white female with bilateral staghorn calculi. She has already undergone PCNL and ureteroscopy on the left side with removal of all of her stone on that side. She is now presenting for her right side to begin treatment with PCNL. Full H and P can be found in the scanned portion of the [employer] system. HOSPITAL COURSE: After her surgery (please see operative note for details), the patient was admitted to the hospital with a right nephrostomy catheter and right Young catheter. She has indwelling right ureteral stent in. She did well overnight other than some mild discomfort. Her white count in the morning was 20,000, but she had no fevers. She otherwise states she was feeling well besides some mild discomfort. Her preop urine culture did grow Staph epidermidis and she was given doxycycline to start preoperatively, which she was able to take for a few days, but had significant upset stomach with it and began throwing up. I told her we could switch antibiotics. While in the hospital, she received vancomycin along with levofloxacin for her antibiotic prophylaxis. Her nephrostomy catheter was removed along with her Young catheter on postop day 1. She had no evidence of bleeding or significant hematuria. She was able to void spontaneously and she wanted to go home. I told her she would need to return to the hospital if she started developing fevers. She is going to try to take the doxycycline again, but if she cannot, then she will take the Macrobid for 7 days. I went over the rest of her discharge instructions with her, which she understood and all of her questions were answered. DISPOSITION: Discharge to home. DISCHARGE CONDITION: Good. DISCHARGE MEDICATIONS: Include resuming all of her home medications. In addition, she was given the Macrobid prescription along with hydrocodone and Colace as well as oxybutynin for bladder spasms. DISCHARGE FOLLOWUP: She will follow up with me on June 24 for ureteroscopy and clearance of the remaining stone on her right side. We will remove her stent subsequent to that. Job ID: [id number]
== END 2019-06-10 16:05 | disposition home or self-care (01) | DRG 661 ==
LOC: SURG A 06-09 06:01
PROVIDERS: ADMIT Urology; ATTEND Urology
PROC: 0TC03ZZ Extirpation of Matter from Right Kidney, Percutaneous Approach (ICD-10-PCS; principal; 2019-06-09)
PROC: 3E02340 Introduction of Influenza Vaccine into Muscle, Percutaneous Approach (ICD-10-PCS; 2019-06-10)
DX: N20.0 Calculus of kidney (principal); I10 Essential (primary) hypertension; Z23 Encounter for immunization; B95.7 Other staphylococcus as the cause of diseases classified elsewhere; E66.9 Obesity, unspecified; Z88.0 Allergy status to penicillin; Z88.8 Allergy status to other drugs, medicaments and biological substances; Z87.891 Personal history of nicotine dependence; Z90.710 Acquired absence of both cervix and uterus; Z68.30 Body mass index [BMI] 30.0-30.9, adult
CPT/HCPCS: 36416; 80048; 82365; 85025; 86850; 86900; 86901; 88300; C1758; J1100; J1956; J2001; J2250; J2405; J2550; J2704; J3010; J3370

== ENCOUNTER 2019-06-24 06:41 | Day surgery (SDC) | payer BC ==
[2019-06-20 11:07] VITALS: BMI 32.0
[2019-06-24] MEDS ORDERED: Fentanyl 250 MCG/5 ML VIAL ONE (07:00)
[2019-06-24] MEDS ORDERED: Lidocaine 4% Topical Sol 50 ML BOT ONE (07:00)
[2019-06-24] MEDS ORDERED: Levofloxacin 500 mg/D5W 100 ml Premix Bag ONE (07:12)
[2019-06-24] MEDS ORDERED: Scopolamine 1.5 mg/72 hour Patch ONE (07:39)
[2019-06-24] MEDS ORDERED: Iothalamate Meglumine 60% 50 ML VIAL FS ONE (09:25)
[2019-06-24] MEDS ORDERED: Lidocaine 1% PF 5 ML VIAL ONE (10:12)
[2019-06-24] MEDS ORDERED: Dexamethasone 20 MG/5 ML VIAL ONE (10:12)
[2019-06-24] MEDS ORDERED: Rocuronium Bromide 10 MG/ML (10ML VIAL) ONE (10:12)
[2019-06-24] MEDS ORDERED: PROPOFOL 200 MG/20 ML VIAL ONE (10:12)
[2019-06-24] MEDS ORDERED: Ondansetron PF 4 MG/2 ML Vial ONE (10:12)
[2019-06-24] MEDS ORDERED: PHENYLEPHRINE-NS 100 MCG/ML 10 ML SYRINGE ONE (10:12)
[2019-06-24] MEDS ORDERED: ePHEDrine/0.9% NaCl/PF SYRINGE 50 mg/10 ml ONE (10:12)
[2019-06-24] MEDS ORDERED: Phenazopyridine HCl 97.5 MG TABLET ONE (12:24)
[2019-06-24] MEDS ORDERED: Promethazine HCl 25 MG/ML VIAL ONE (12:58)
--- NOTE | 2019-06-24 18:48 | OP ---
DATE OF PROCEDURE: 06/24/2019 SERVICE: Urology. PREOPERATIVE DIAGNOSIS: Right renal stone. POSTOPERATIVE DIAGNOSIS: Right renal stone. PROCEDURES PERFORMED: Right ureteroscopy, laser lithotripsy, basket extraction of stones, and placement of a 6 x 26 double-J stent. INDICATIONS FOR PROCEDURE: Ms. Sosa is a 64-year-old white female with a history of bilateral branched staghorn calculi. She has already undergone bilateral PCNLs and left-sided ureteroscopy with complete clearance of stones on the left side. She is now returning for the right side to remove any remaining stone fragments that were not cleared on the right-sided PCNL. Risks and benefits have been discussed, and she has agreed to proceed forward. DESCRIPTION OF PROCEDURE: After identification of armband and verification of consent, the patient was brought back to the operating room, where she underwent general anesthesia with endotracheal intubation. She was then placed in dorsal lithotomy position and prepped and draped in usual sterile fashion. After appropriate time-out, attempts to dilate the urethra were initially attempted with a 14-Ukrainian urethral dilator. There was a significant amount of difficulty attempting to pass the dilator, and no force was applied. Instead, we brought the cystoscope in to check to see if there was a stricture, and there was none, just an extremely downward angled urethra secondary to her cystocele. This likely represents why she is having so much difficulty urinating with a weak stream and dysuria. The patient will probably need an anterior repair of her vagina to bring her bladder back up into normal position to allow for better urination. Nonetheless, the cystoscope was then easily advanced into the urethra without any notation of a stricture. The stent was grasped with flexible graspers and brought out to the level of the urethral meatus. A 0.035 Sensor wire was advanced through the ureteral stent up to the level of renal pelvis. The stent was then removed and discarded. A dual-lumen catheter was advanced over the Sensor wire up to the level of the proximal ureter. A Super Stiff wire was then placed through the second lumen of the dual-lumen catheter up to the renal pelvis, and then the dual-lumen was removed. A 13/15 x 36 cm ureteral access sheath was then advanced over the Super Stiff wire up to the level of the proximal ureter. The inner cannula and the Super Stiff wire were then removed leaving the outer sheath and Sensor wire in place as a safety wire. A flexible digital ureteroscope was then passed through the ureteral access sheath into the renal pelvis. Pyeloscopy demonstrated a large stone in the mid pole and stones in the lower pole with the largest stone being in the lower pole. Using a 275 micron ball tip laser tip fiber, the stones were fragmented into small pieces, and then extensive basketing was performed to remove all fragments that were over 1 to 2 mm in size. Upon completion, all the stones had been cleared out of the calices. There was a significant amount of stone debris with 1 to 2 mm stone fragments within the renal pelvis and within a few of the calices. At this point, there was too much stone debris to extract, and the pieces were too small to fit within the Nitinol basket. I felt that these pieces should pass without any difficulty, and so, pull-back ureteroscopy was employed, and no additional large stones were found within the ureter. The cystoscope was then backloaded over the Sensor wire back into the bladder, and a 6 x 26 double-J stent with a string attached was advanced over the Sensor wire up to the level of renal pelvis. The wire was removed leaving a good curl in the kidney and a good curl in the bladder. The cystoscope was then removed, and the string was attached to the patient's inner thigh with an OpSite. She then had her legs taken down. She was awakened and taken to PACU for recovery in stable condition. COMPLICATIONS: None. ESTIMATED BLOOD LOSS: Minimal. RETAINED TUBES AND DRAINS: A 6 x 26 double-J stent on the right with string attached. SPECIMENS: Stone for stone analysis. DISPOSITION: The patient will be discharged home and follow up with me next week, at which time, we will remove her stent on Thursday by pulling the string. Job ID: [id number]
[2019-06-28 15:10] LABS: Ammonium Acid Urate 10 % (.); CA Oxalate Monohydrate 25 % (.); CA Phosphate 45 % (.); Color Tan (.); Comment Comment: (.); Comment Note: (.); Mg Ammon Phos 20 % (.); Stone Weight 486.2 mg (.)
== END 2019-06-24 15:15 | disposition home or self-care (01) ==
LOC: SDC 06:41
PROVIDERS: ATTEND Urology
PROC: 0T768DZ Dilation of Right Ureter with Intraluminal Device, Via Natural or Artificial Opening Endoscopic (ICD-10-PCS; principal; 2019-06-24)
PROC: 0TF38ZZ Fragmentation in Right Kidney Pelvis, Via Natural or Artificial Opening Endoscopic (ICD-10-PCS; principal; 2019-06-24)
DX: N20.0 Calculus of kidney (principal); N81.10 Cystocele, unspecified; E27.8 Other specified disorders of adrenal gland; I10 Essential (primary) hypertension; M19.90 Unspecified osteoarthritis, unspecified site; M35.3 Polymyalgia rheumatica; Z87.891 Personal history of nicotine dependence; Z79.899 Other long term (current) drug therapy; Z88.0 Allergy status to penicillin; Z88.8 Allergy status to other drugs, medicaments and biological substances; Z98.890 Other specified postprocedural states
CPT/HCPCS: 76000; 82365; 88300; C1769; J0131; J1100; J1956; J2001; J2405; J2550; J2704; J3010

== ENCOUNTER 2019-10-13 08:01 | Inpatient (IN) | payer BC ==
[2019-10-13] MEDS ORDERED: Ondansetron PF 4 MG/2 ML Vial ONE ×3 (08:16→19:52)
[2019-10-13] MEDS ORDERED: Ketorolac Tromethamine 30 MG/ML VIAL ONE (08:16)
[2019-10-13 08:47] LABS: Hemoglobin 14.6 g/dL (12.0-16.0); Mean Corpuscular HGB CONC 33.4 g/dL (32.0-36.0); Mean Corpuscular Hemoglobin 30.1 pg (27.0-31.0); Mean Corpuscular Volume 90.2 fL (78.0-98.0); Mean Platelet Volume 7.6 fL (7.4-10.4); Platelet Count 371 thou/uL (130-400); RBC Distribution Width 12.1 % (11.5-14.5); Red Blood Cell (RBC) Count 4.85 mill/uL (4.20-5.40)
[2019-10-13 09:06] LABS: ALT (SGPT) 14 U/L (8-55); AST (SGOT) 14 U/L (5-34); Albumin 4.4 g/dL (3.4-4.8); Alkaline Phosphatase 176 U/L (40-110); Anion Gap 14 mmol/L (10-20); BUN (Urea Nitrogen) 21 mg/dL (9.8-20.1); Band 11 % (5-11); Bilirubin, Total 0.7 mg/dL (0.2-1.2); Calc. Creatinine Clearance 0 mL/min (70-130); Calcium 9.4 mg/dL (7.8-10.44); Carbon Dioxide 23 mmol/L (23-31); Chloride 106 mmol/L (98-107); Estimated GFR-MDRD 59; Globulin 3.1 g/dL (2.4-3.5); Glucose 167 mg/dL (80-115); Lymphocytes 8 % (21-51); MDiff Complete? YES; Monocytes 7 % (0-10); Neutrophil 74 % (42-75); Potassium 3.4 mmol/L (3.5-5.1); Protein, Total 7.5 g/dL (6.0-8.3); RBC Morphology Normal; Sodium 140 mmol/L (136-145)
[2019-10-13 09:23] LABS: Bacteria/HPF 3+ HPF (None Seen); Bilirubin Negative (Negative); Blood, Urine 2+ (Negative); Clarity Turbid (Clear); Glucose, Urine (Dipstick) Normal (Negative); Leukocyte 500 Leu/uL (Negative); Nitrite 2+ (Negative); Protein, Urine (Dipstick) 20 mg/dL (Neg-Trace); Urobilinogen Normal mg/dL (Less than 2); WBC/HPF Greater than 50 HPF (0-3)
[2019-10-13] MEDS ORDERED: Rocuronium Bromide 10 MG/ML (10ML VIAL) ONE (09:41)
[2019-10-13] MEDS ORDERED: Lidocaine 1% PF 5 ML VIAL ONE (09:41)
[2019-10-13] MEDS ORDERED: PROPOFOL 200 MG/20 ML VIAL ONE (09:41)
[2019-10-13] MEDS ORDERED: cefTRIAXone\\ROCEPHIN 2 GM VIAL ONE (10:04)
--- NOTE | 2019-10-13 10:09 | CT ---
ABDOMEN AND PELVIC CT SCAN WITHOUT IV CONTRAST: Date: 10/13/2019 HISTORY: Nausea, vomiting, hematuria. History of multiple prior stones. COMPARISON: 03/29/2019. FINDINGS: Stable increased interstitial markings in the lung bases. Multiple circumscribed low attenuation foci within the liver, stable. Small hiatal hernia. Stable right and left adrenal adenomas, larger on th e right side, with a maximum length of 4.4 cm. Marked dilatation of the right upper renal collecting system and dilated ureter down to an obstructin g calculus in distal right ureter several cm from the ureterovesical junction region. This calculus m easures 0.6 x 0.9 cm in size. There is renal parapelvic fat stranding in the perirenal and pararenal regions. Multiple nonobstructing left renal calculi. Multiple bilateral renal cysts, which appear sta ble. No CT evidence for acute appendicitis. Multiple calcifications within the bladder, evidence for multiple bladder stones. IMPRESSION: 1. Acutely obstructing distal right ureteral calculus. 2. Bilateral renal cysts and bilateral nonobstructing renal calculi. 3. Stable bilateral adrenal adenomas. 4. Stable liver cysts. 5. No evidence for other significant acute process. POS: TPC
[2019-10-13] MEDS ORDERED: Ondansetron PF 4 MG/2 ML Vial IVP PRN ×2 (12:57→16:39)
[2019-10-13] MEDS ORDERED: Acetaminophen 325 MG TAB PO PRN ×2 (12:57→16:39)
[2019-10-13] MEDS ORDERED: HYDROcodone/Acetaminophen 5/325 mg Tablet PO PRN ×3 (12:57→16:39)
[2019-10-13] MEDS ORDERED: Sodium Chloride 0.9% 1,000 ML IV SCH (12:57)
[2019-10-13] MEDS ORDERED: Ondansetron ODT 4 MG TAB SL PRN (12:57)
[2019-10-13] MEDS ORDERED: Morphine 4 MG/ML VIAL SLOW IVP PRN ×2 (12:58→16:40)
[2019-10-13 13:23] VITALS: BMI 32.5
[2019-10-13] MEDS ORDERED: hydrALAZINE 20 MG/ML VIAL SLOW IVP PRN (16:39)
[2019-10-13] MEDS ORDERED: Ondansetron ODT 4 MG TAB PO PRN (16:39)
[2019-10-13] MEDS ORDERED: Scopolamine 1.5 mg/72 hour Patch ONE (19:06)
[2019-10-13] MEDS ORDERED: Iothalamate Meglumine 60% 50 ML VIAL FS ONE (19:40)
[2019-10-13] MEDS ORDERED: B & O ONE (19:47)
[2019-10-13] MEDS ORDERED: Famotidine/PF 20 mg/2ml Vial ONE (19:52)
[2019-10-13] MEDS ORDERED: Fentanyl 100 MCG/2 ML VIAL ONE (20:00)
[2019-10-13] MEDS ORDERED: SUGAMMADEX SODIUM 500 MG/5 ML VIAL ONE (20:31)
[2019-10-13] MEDS: Sodium Chloride 0.9% 1,000 ML IV SCH (22:09)
[2019-10-13] MEDS: Famotidine 20 MG TAB PO SCH (22:10)
--- NOTE | 2019-10-13 22:20 | HP ---
PRIMARY CARE PHYSICIAN: Matti De La Cruz MD CHIEF COMPLAINT: Severe back pain. HISTORY OF PRESENT ILLNESS: Ms. Sosa is a very pleasant 64-year-old female, who has a history of nephrolithiasis. She also has a history of hypertension and history of bladder prolapse in the past. She has had multiple procedures for staghorn calculus in the past. She had been doing well until about 5:00 a.m. this morning. She got up to go to the bathroom when she says suddenly she got a severe pain in her right back that tend to camejo through her like a sword up into the front of her abdomen. She says the pain was about 15/10 and then shortly after that she started vomiting. The pain was similar to what she had had when she had a previous kidney stone and as a result, she came to the ER for evaluation. She denies having any fevers or chills and prior to this, she was doing fine. In fact, she was doing some yard work the day before. She says she was trying to stay hydrated, however. Also, she did mention she noticed a little bit of blood when she wiped, but this has since improved. The pain lasted until she did come to the ER and received medication for the pain. Otherwise, she denies any other complaints. She denies any chest pain or any shortness of breath now in particular. REVIEW OF SYSTEMS: All systems were reviewed and are negative except for that mentioned in the history of present illness. PAST MEDICAL HISTORY: Significant for hypertension, bladder prolapse, history of palpitations, gastroesophageal reflux disease, and bilateral staghorn calculus. PAST SURGICAL HISTORY: She has had a hysterectomy. She has had seven procedures for kidney stone removal. She has had nephrostomy tubes, as well as stents placed in the past and laser lithotripsy. ALLERGIES: TO PENICILLIN, WHICH SHE SAYS CAUSES EYE AND TONGUE SWELLING. SHE IS ALSO ALLERGIC TO CARVEDILOL, HYDROCHLOROTHIAZIDE, METOPROLOL, AND PRAVASTATIN. SOCIAL HISTORY: She is . She does not drink any alcohol. She is a former smoker. She quit in 2012 or 8 years ago and prior to that smoked about a pack a week, and she would like to be a full code. FAMILY HISTORY: Significant for cancer. CURRENT MEDICATIONS: She says her only prescription medication is amlodipine 5 mg daily and then she takes Tylenol and docusate sodium as needed. PHYSICAL EXAMINATION: GENERAL: She is alert and oriented. She appears to be in no acute distress. She is well developed and well nourished. VITAL SIGNS: Blood pressure was 156/94, heart rate 85, respiratory rate of 16, temperature is 98.7. HEENT: Pupils are equal, round, and reactive. Extraocular muscles are intact. Her sclerae are anicteric. Throat, there is no erythema, no exudates. She has poor dentition. NECK: There is no adenopathy. No bruits. LUNGS: Clear to auscultation. There is no wheezing, no rales, no rhonchi. CARDIOVASCULAR: She has a normal S1, S2. There is no S3 or S4. No murmurs, clicks, or rubs. ABDOMEN: Obese, soft. She does have some right upper and mid abdominal tenderness, as well as some flank tenderness. There is no rebound or guarding. No organomegaly. EXTREMITIES: There is no edema. No calf tenderness. No joint effusions. NEUROLOGICAL: Grossly nonfocal. SKIN AND INTEGUMENT: No skin changes. No rash. LABORATORY RESULTS: White blood cell count 22, hemoglobin 14.6, hematocrit is 43.8, and platelet count is 371. Sodium is 140, potassium 3.4, chloride is 106, CO2 is 23, BUN of 21, creatinine 0.95, glucose is 167. On her urinalysis, she had 3+ bacteria, 4 to 6 squamous cells, and white blood cells were greater than 50. ASSESSMENT: 1. This is a pleasant 64-year-old female, who presents with the sudden onset of right-sided flank pain and nausea and vomiting. She was also found to have leukocytosis and urinalysis suspicious for urinary tract infection. She also had a CT scan of the abdomen demonstrating acutely obstructing distal right ureteral calculus, as well as some bilateral renal cyst and nonobstructing renal calculi. She is being admitted for pyelonephritis, which is complicated by nephrolithiasis. Urology has already been consulted. She will be admitted and started on IV antibiotics. Urine culture has already been obtained. We will start her on Rocephin IV pending culture results. Plan will be for her to go urgently for ureteral stone placement. 2. For hypertension, she will be n.p.o. for now. When she is able to take in oral medication, we will restart the amlodipine but in the meantime, we will be treating her with p.r.n. hydralazine IV. She will be placed on both deep venous thrombosis and gastrointestinal prophylaxis and further recommendations to follow. Job ID: [id number]
--- NOTE | 2019-10-13 23:41 | CON ---
DATE OF CONSULTATION: 10/13/2019 CONSULTING: Dr. Boland. CONSULTED: Dr. Munoz. REASON FOR CONSULTATION: Obstructing ureteral stone with pyelonephritis. HISTORY OF PRESENT ILLNESS: Ms. Sosa is a 64-year-old white female who is well known to me for bilateral nephrolithiasis. She had a large staghorn calculi in each kidney, which required PCNL on each side followed by ureteroscopy on each side. This left her mostly stone free, although she did have a few remaining fragments. She states that she was doing very well after her final surgery and we had been planning for metabolic workup. She delayed this secondary to her having surgery. She was getting ready to start her metabolic workup soon, but began having extremely severe right flank pain associated with nausea and vomiting. She did not have any fevers, but stated she had subjective chills. She came to the emergency room due to the uncontrolled 10/10 flank pain. There she underwent a CT scan, which demonstrated that she had a 9 x 6 mm distal ureteral stone at the ureterovesical junction. There was parapelvic fat stranding and hydronephrosis. Her white count at the time was 22,000 with a UA concerning for a possible urinary tract infection. I was consulted for further assistance. ALLERGIES: PENICILLIN. HOME MEDICATIONS: 1. Colace. 2. Norvasc. 3. Tylenol. PAST MEDICAL HISTORY: 1. Hypertension. 2. Bladder prolapse. 3. Heart palpitations. 4. Gastroesophageal reflux disease. 5. Nephrolithiasis. PAST SURGICAL HISTORY: 1. Ureteroscopy. 2. Hysterectomy. 3. Bladder reconstruction, although details of this are unknown. 4. Bilateral PCNL. 5. Separate bilateral ureteroscopies. FAMILY HISTORY: Significant for colon cancer and lung cancer. She has a daughter who has nephrolithiasis as well as in her father. SOCIAL HISTORY: The patient is , lives with her . She denies smoking, although she previously used to smoke. She does not use any illicit drugs or alcohol. She has quit drinking , Dr. winters. REVIEW OF SYSTEMS: A 12-point review of systems reviewed and negative other than what was commented in the HPI. PHYSICAL EXAMINATION: VITAL SIGNS: Temperature 98.7, pulse 85, respirations 16, blood pressure 156/94, saturation 95% on room air. GENERAL: No apparent distress. Communicative and alert, answering questions appropriately. Appears stated age, well nourished, well developed. HEENT: Normocephalic, atraumatic. Pupils are symmetric and round. Sclerae nonicteric. Trachea midline. Moist mucous membranes. CARDIOVASCULAR: Regular rate and rhythm. Normal S1, S2. Symmetric pulses. Few scattered lower extremity varicosities. CHEST: No increased work of breathing, symmetric expansion. LUNGS: Clear anteriorly. ABDOMEN: Soft, nontender, nondistended. Positive bowel sounds. No suprapubic tenderness. : Deferred at this time. EXTREMITIES: No clubbing, cyanosis, or edema. SKIN: Warm, dry. No rashes or lesions. Good turgor. NEUROLOGIC: Cranial nerves 2-12 appear grossly intact. No focal or sensory motor deficits identified. MUSCULOSKELETAL: No joint deformities or joint erythema noted. Full range of motion. LYMPH: There are no lymph nodes in the supraclavicular, axillary, or inguinal regions that can be palpated. No popliteal lymph nodes. PSYCHIATRIC: Alert oriented x3. Appropriate mood and affect. LABORATORY DATA: On laboratory evaluation, her white count is currently 22,000 with hemoglobin of 14.6. Creatinine is currently 0.95. Urinalysis demonstrates 4-6 squamous cells, 3+ bacteria, greater than 50 white cells, 11-20 RBCs, nitrite 2+, blood 2+. ASSESSMENT AND PLAN: A 64-year-old white female with likely pyelonephritis and urinary tract infection with an obstructing 9 x 6 mm ureteral stone at the right ureterovesical junction. A stone of this size may pass, but has a low probability and furthermore she does have evidence of a urinary tract infection with early systemic inflammatory response syndrome criteria. I would not recommend conservative management in this individual. I think in addition to her antibiotics, the best option would be ureteral stenting. If stenting is unsuccessful as may occur with larger stones, then a percutaneous nephrostomy tube will be required. I have discussed this with the patient and she states that she would like to go for the ureteral stent, if possible. I have gone over the procedure, including risks, which include the above after mentioned, inability to pass the stent, ureteral injury or perforation, damage to the ureter, kidney or bladder and need for further procedures. She understands these risks and wishes to proceed forward with ureteral stent on the right. I would recommend continuation of IV antibiotics. Culture can dictate ultimate antibiotic therapy. She can be transitioned to p.o. antibiotics once her cultures are back and this would need to be continued for 2 weeks for pyelonephritis. I would plan for completion of antibiotics at which time we can repeat a CT scan, if the stone is still present in the distal ureter. We will go ahead and make plans for ureteroscopy and removal of the stone. Afterwards, we will continue metabolic workup for stone prevention in the future. Job ID: [id number]
--- NOTE | 2019-10-14 00:36 | OP ---
DATE OF PROCEDURE: 10/13/2019 SERVICE: Urology. PREOPERATIVE DIAGNOSIS: Right ureteral stone with pyelonephritis. POSTOPERATIVE DIAGNOSIS: Right ureteral stone with pyelonephritis. PROCEDURE PERFORMED: Cystoscopy with right ureteral stent placement. INDICATION FOR PROCEDURE: Ms. Sosa is a 64-year-old white female, who presented with a right ureteral stone at the ureterovesical junction with pyelonephritis and elevated white count. She has a long history of stones. I have recommended ureteral stent placement to avoid sepsis. Risks and benefits of the procedure were discussed and she has agreed to proceed forward. DESCRIPTION OF PROCEDURE: After identification of armband and verification of consent, the patient was brought back to the operating room, where she underwent general anesthesia with an endotracheal intubation. She was then placed in dorsal lithotomy position and prepped and draped in usual sterile fashion. After appropriate time-out, a lubricated 22-[place] rigid cystoscope was introduced per urethra into the bladder. Immediately upon entry into the bladder, there was a very large stone noted in the bladder measuring about 9 mm. It was questionable whether or not this was the actual stone that was within the ureter that had now passed or a separate stone as stones were seen on the CT scan in the bladder previously. Out of concern for not placing a stent and the patient getting advanced sepsis, I went ahead and proceeded forward with right ureteral stent placement. The right ureteral orifice was identified and cannulated with a 0.035 Sensor wire up to the level of renal pelvis. A 6 x 24 double-J stent was advanced over the Sensor wire up to the level of the renal pelvis. The wire removed, leaving a good curl in the kidney and a good curl in the bladder. The bladder was then emptied and the cystoscope removed. The patient was then awakened and taken to PACU for recovery in stable condition. COMPLICATIONS: None. ESTIMATED BLOOD LOSS: Minimal. RETAINED TUBES AND DRAINS: 6 x 24 double-J stent on the right. SPECIMENS: None. DISPOSITION: The patient will be kept in the hospital for treatment of her pyelonephritis. Once culture results are back, she will be transitioned to oral antibiotics and discharged home. We will treat her for a total of two weeks at which point, we will obtain a CT scan and evaluate to see if there is a distal ureteral stone. If there is, we will plan to take her for ureteroscopy. If there is no stone, we will go ahead and take out the stent with possible stone retrieval at the same time if she has not yet passed it. Job ID: [id number]
[2019-10-14] MEDS: Sodium Chloride 0.9% 1,000 ML IV SCH ×3 (03:20→18:00)
[2019-10-14 05:41] LABS: #Basophils 0.1 thou/uL (0.0-0.2); #Eosinphils 0.2 thou/uL (0.0-0.7); #Lymphocytes 1.9 thou/uL (1.20-3.40); #Monocytes 1.2 thou/uL (0.11-0.59); #Neutrophils 9.7 thou/uL (1.40-6.50); %Basophils 0.4 % (0.0-1.0); %Eosinophils 1.3 % (0.0-10.0); %Lymphocytes 14.7 % (21.0-51.0); %Monocytes 9.1 % (0.0-10.0); %Neutrophils 74.6 % (42.0-75.0); Hemoglobin 12.2 g/dL (12.0-16.0); Mean Corpuscular HGB CONC 34.3 g/dL (32.0-36.0); Mean Corpuscular Hemoglobin 31.3 pg (27.0-31.0); Mean Corpuscular Volume 91.4 fL (78.0-98.0); Platelet Count 288 thou/uL (130-400); RBC Distribution Width 12.2 % (11.5-14.5); Red Blood Cell (RBC) Count 3.89 mill/uL (4.20-5.40); White Blood Cell (WBC) Count 12.9 thou/uL (4.8-10.8)
[2019-10-14 05:57] LABS: Anion Gap 13 mmol/L (10-20); BUN (Urea Nitrogen) 14 mg/dL (9.8-20.1); Calc. Creatinine Clearance 99 mL/min (70-130); Calcium 8.6 mg/dL (7.8-10.44); Carbon Dioxide 21 mmol/L (23-31); Chloride 109 mmol/L (98-107); Estimated GFR-MDRD 79; Glucose 137 mg/dL (80-115); Potassium 3.3 mmol/L (3.5-5.1); Sodium 140 mmol/L (136-145)
[2019-10-14] MEDS ORDERED: Amlodipine 5 MG TAB PO SCH (06:00)
[2019-10-14] MEDS ORDERED: Potassium Chloride 20 MEQ TAB PO SCH (07:30)
[2019-10-14] MEDS: Enoxaparin Sodium 40 MG/0.4 ML SYRINGE SC SCH (09:05)
[2019-10-14] MEDS: Famotidine 20 MG TAB PO SCH ×2 (09:05→20:31)
[2019-10-14] MEDS: cefTRIAXone\\ROCEPHIN 1 GM in Sodium Chloride 0.9% 100 ML IVPB SCH (09:59)
--- NOTE | 2019-10-14 10:37 | PDOC.HOSPP ---
- Subjective Encounter Date: 10/14/19 Encounter Time: 10:31 Subjective: Ms. Sosa was seen today in follow-up of Pyelonephritis and Nephrolithiasis. She says she feels better, but continues to have a little stinging pains in the right side. - Objective Vital Signs & Weight: Vital Signs (12 hours) Temp Pulse Resp BP BP Pulse Ox 10/14/19 07:58 98.6 F 80 18 146/88 H 95 10/14/19 07:04 98.5 F 82 16 149/81 H 96 10/14/19 06:15 84 161/86 H 10/14/19 05:04 98.6 F 84 16 161/86 H 95 10/14/19 01:11 98.9 F 82 18 138/68 94 L Weight Weight 178 lb I&O: 10/13/19 10/14/19 10/15/19 06:59 06:59 06:59 Intake Total 1500 Balance 1500 Result Diagrams: 10/14/19 05:06 10/14/19 05:05 Hospitalist ROS - Medication Medications: Active Medications Generic Name Dose Route Start Last Admin Trade Name Freq PRN Reason Stop Dose Admin Acetaminophen 650 mg 10/13/19 16:39 10/14/19 03:21 Tylenol PO 650 mg Q4H PRN Administration Headache/Fever/Mild Pain (1-3) Enoxaparin Sodium 40 mg 10/14/19 09:00 10/14/19 09:05 Lovenox SC 40 mg 0900 AVNI Administration Famotidine 20 mg 10/13/19 21:00 10/14/19 09:05 Pepcid PO 20 mg BID AVNI Administration Ceftriaxone Sodium 1 gm/ 100 mls @ 200 mls/hr 10/14/19 10:00 10/14/19 09:59 Sodium Chloride IVPB 100 mls 1000 AVNI Administration Sodium Chloride 1,000 mls @ 125 mls/hr 10/13/19 16:45 10/14/19 07:49 Normal Saline 0.9% IV 1,000 mls .Q8H AVNI Administration Ondansetron HCl 4 mg 10/13/19 16:39 10/14/19 07:54 Zofran Odt PO 4 mg Q6H PRN Administration Nausea/Vomiting - Exam Eye: PERRL Heart: RRR, no murmur, no gallops, no rubs, normal peripheral pulses Respiratory: CTAB, no wheezes, no rales, no ronchi, normal chest expansion, no tachypnea Gastrointestinal: soft, non-tender, non-distended, normal bowel sounds, no palpable masses, no hepatomegaly Extremities: no cyanosis, 1+ LE edema (+ bilateral lower extemity edema) Hosp A/P (1) Right nephrolithiasis Code(s): N20.0 - CALCULUS OF KIDNEY Status: Acute (2) Pyelonephritis of right kidney Code(s): N12 - TUBULO-INTERSTITIAL NEPHRITIS, NOT SPCF ACUTE OR CHRONIC Status: Acute (3) Hypertension Code(s): I10 - ESSENTIAL (PRIMARY) HYPERTENSION Status: Chronic - Plan * Pyelonephritis due to Nephrolithiasis of the right ureter * She is s/p cystoscopy and STENT placement to the right ureter * Continue Rocephin pending culture results * HTN- blood pressure is stable- and will re-start Amlodipine * Mobilize
--- NOTE | 2019-10-14 17:07 | PRG ---
DATE OF SERVICE: 10/14/2019 SUBJECTIVE: Patient states she is feeling much better. She does have a little bit of abdominal pain, headache, and mild malaise today, but otherwise states that she is not doing too badly. OBJECTIVE: VITAL SIGNS: Temperature 98.2, pulse 79, respirations 16, blood pressure 114/65, saturation 97% on room air. GENERAL: No apparent distress. Communicative and alert. CARDIOVASCULAR: Regular rate and rhythm. ABDOMEN: Soft, minimally tender to palpation, nondistended. : Deferred. EXTREMITIES: No edema. LABORATORY DATA: The full set of labs are in the [email or web address] system, which I have reviewed. Of note, the patient's white count is decreased down to 12.9. Creatinine is 0.74. ASSESSMENT AND PLAN: A 64-year-old white female with pyelonephritis and a right ureteral stone status post cystoscopy and right ureteral stent placement. We will plan for a CT next week to see if the stone is still present within the distal ureter. If it is, then we will plan for ureteroscopy once her infection is completely treated with 2 weeks of antibiotics. However, if the stone is gone and was passed, as previously noted that there was a stone within the bladder during cystoscopy at the time of her stent placement, then we will just simply plan stent removal once her infection is cleared. For now, there is nothing further that needs to be done from my standpoint. I will sign off. The patient can be discharged when appropriate by the medical team after cultures are finalized and she has the appropriate antibiotic regimen. Job ID: [id number]
[2019-10-14] MEDS ORDERED: Sodium Chloride 0.9% 1,000 ML IV SCH (20:45)
[2019-10-15 05:44] LABS: #Basophils 0.1 thou/uL (0.0-0.2); #Eosinphils 0.3 thou/uL (0.0-0.7); #Lymphocytes 2.9 thou/uL (1.20-3.40); #Monocytes 0.8 thou/uL (0.11-0.59); #Neutrophils 5.2 thou/uL (1.40-6.50); %Basophils 0.9 % (0.0-1.0); %Eosinophils 2.7 % (0.0-10.0); %Lymphocytes 31.6 % (21.0-51.0); %Neutrophils 55.8 % (42.0-75.0); Hemoglobin 12.3 g/dL (12.0-16.0); Mean Corpuscular HGB CONC 33.7 g/dL (32.0-36.0); Mean Corpuscular Hemoglobin 30.9 pg (27.0-31.0); Mean Corpuscular Volume 91.7 fL (78.0-98.0); Mean Platelet Volume 7.9 fL (7.4-10.4); Platelet Count 307 thou/uL (130-400); Red Blood Cell (RBC) Count 3.97 mill/uL (4.20-5.40); White Blood Cell (WBC) Count 9.2 thou/uL (4.8-10.8)
[2019-10-15 06:06] LABS: Anion Gap 10 mmol/L (10-20); BUN (Urea Nitrogen) 13 mg/dL (9.8-20.1); Calc. Creatinine Clearance 93 mL/min (70-130); Calcium 9.1 mg/dL (7.8-10.44); Carbon Dioxide 26 mmol/L (23-31); Chloride 107 mmol/L (98-107); Estimated GFR-MDRD 74; Glucose 114 mg/dL (80-115); Potassium 3.7 mmol/L (3.5-5.1); Sodium 139 mmol/L (136-145)
[2019-10-15 07:44] VITALS: BP 130/76; TEMP 98.5
[2019-10-15] MEDS ORDERED: Amlodipine 5 MG TAB PO SCH (09:00)
[2019-10-15] MEDS: Enoxaparin Sodium 40 MG/0.4 ML SYRINGE SC SCH (09:38)
[2019-10-15] MEDS: Famotidine 20 MG TAB PO SCH (09:39)
[2019-10-15] MEDS: cefTRIAXone\\ROCEPHIN 1 GM in Sodium Chloride 0.9% 100 ML IVPB SCH (09:39)
--- NOTE | 2019-10-15 14:27 | DIS ---
DATE OF ADMISSION: 10/13/2019 DATE OF DISCHARGE: 10/15/2019 DISCHARGE DISPOSITION: To home. PRIMARY DISCHARGE DIAGNOSIS: Right-sided pyelonephritis with right ureteral stone, status post cystoscopy with stent. SECONDARY DISCHARGE DIAGNOSES: Hypertension and obesity. PROCEDURES DONE DURING HOSPITALIZATION: The patient has had CT of the abdomen and pelvis done on the day of admission, which showed obstructing distal right ureteral calculus. The calculus measures 0.6 x 0.9 cm in size. There were bilateral nonobstructing renal calculi, bilateral adrenal stable adenomas, liver cysts, renal cysts. The patient has had cystoscopy with right ureteral stent placed by Dr. Boland on 10/13/2019, on the right side. Urine culture was contaminated. Blood cultures x2, no growth. White count of 22 on admission, discharge white count of 9; H and H 12 and 36; platelet count 307. BUN 13, creatinine 0.7. DISCHARGE MEDICATIONS: 1. Ciprofloxacin 500 mg p.o. twice daily for [address] Boland's advice. 2. Norvasc 5 mg p.o. daily. 3. Colace 100 mg p.o. daily. ALLERGIES: TO CARVEDILOL, HYDROCHLOROTHIAZIDE, METOPROLOL, PENICILLIN, AND PRAVASTATIN. DISCHARGE PLAN: The patient to follow up with Dr. De La Cruz, her primary care physician in [address] Boland in 1 week. BRIEF COURSE DURING HOSPITALIZATION: The patient initially came in with complaints of severe right flank pain. Her initial CAT scan was consistent with right ureteral stone with ureteric colic along with sepsis and urinary tract infection. The patient was placed on broad-spectrum antibiotics and Dr. Boland for Urology was consulted. She has had cystoscopy with stenting done. The patient in fact passed the stone this morning, but the patient did not strain and collect this stone and this was flushed down the toilet. She has been advised to strain all her urine from now on and if a sediment is found, she needs to present it to Dr. Boland or to her primary care physician for stone analysis. She has remained hemodynamically stable. Her initial white count was 23 with normal numbers on the day of discharge. She is eating and ambulating well. Her right lumbar area pain and CV angle tenderness is slowly receding. She needs follow up with Dr. Boland for likely removal of stent in a week. Per Dr. Boland's advice, she is given prescriptions for 2 weeks of antibiotics. Her urine culture was contaminated. Please note, I have seen and examined the patient on the day of discharge. Job ID: [id number]
== END 2019-10-15 13:40 | disposition home or self-care (01) | DRG 854 ==
LOC: ERS 08:01 → OBSVTOIN 11:04 → SURG A 11:04
PROVIDERS: ADMIT Internal Medicine; ATTEND Internal Medicine
PROC: 0T768DZ Dilation of Right Ureter with Intraluminal Device, Via Natural or Artificial Opening Endoscopic (ICD-10-PCS; principal; 2019-10-13)
DX: A41.9 Sepsis, unspecified organism (principal); N20.2 Calculus of kidney with calculus of ureter; I10 Essential (primary) hypertension; E66.9 Obesity, unspecified; K21.9 Gastro-esophageal reflux disease without esophagitis; Z68.32 Body mass index [BMI] 32.0-32.9, adult; Z88.1 Allergy status to other antibiotic agents; Z88.0 Allergy status to penicillin; Z88.8 Allergy status to other drugs, medicaments and biological substances; Z87.442 Personal history of urinary calculi; Z90.710 Acquired absence of both cervix and uterus; Z87.891 Personal history of nicotine dependence; Z79.899 Other long term (current) drug therapy
CPT/HCPCS: 36415; 74176; 76000; 80048; 80053; 81003; 81015; 85025; 87040; 87086; 93005; 93010; 96361; 96365; 96367; 96375; 96376; C1769; J0696; J1650; J1885; J2001; J2405; J2704; J3010; J3370; J3490; J7050; Q0162; S0028

== ENCOUNTER 2019-10-20 08:02 | Outpatient (CLI) | payer BC ==
--- NOTE | 2019-10-20 08:38 | CT ---
CT Stone Protocol: 10/20/2019 12:00 AM HISTORY: History of kidney stones COMPARISON: 10/13/2019 TECHNIQUE: Multiple contiguous axial images were obtained and a CT of the abdomen and pelvis without IV contrast . Coronal and sagittal reformats were performed. FINDINGS: This examination is limited for the evaluation of solid organs and vascular structures due to the lac k of intravenous contrast. Lower Chest: within normal limits. Abdomen: Liver: Scattered hypodensities measuring up to 2.4 cm in size may represent cysts. Bile Ducts: Normal caliber. Gallbladder: Calcified gallstone in the gallbladder Pancreas: within normal limits. Spleen: within normal limits. Adrenals: 4.3 cm right adrenal mass. 1.6 cm left adrenal mass. Kidneys: Bilateral nonobstructing calcification measuring up to 7 mm in size. Bilateral hypodensities measuring up to 2.8 cm in size represent cysts. Pelvis: Reproductive Organs: Status post hysterectomy. Ureters: Right ureteral stent appears in good position. Bladder: Calcifications in the dependent bladder measuring up to 12 mm in size. Bowel: Normal caliber. Scattered diverticula in the colon. Mesenteric Lymph Nodes: No enlarged mesenteric lymph nodes. Peritoneum: No ascites or free air, no fluid collection. Vessels: Atherosclerotic calcifications in the aorta Retroperitoneum: within normal limits. Abdominal Wall: within normal limits. Bones: Degenerative changes in the spine. IMPRESSION: 1. Right ureteral stent appears in good position. There are urinary bladder calcifications and nonobs tructing bilateral renal calcifications 2. Bilateral renal cysts 3. Cholelithiasis 4. Diverticulosis 5. Bilateral adrenal masses. 6. Hepatic cysts
== END 2019-10-20 08:03 | disposition home or self-care (01) ==
LOC: BICCT 08:02
PROVIDERS: ATTEND Urology
DX: N20.0 Calculus of kidney (principal); N28.1 Cyst of kidney, acquired; N28.89 Other specified disorders of kidney and ureter; K80.20 Calculus of gallbladder without cholecystitis without obstruction; N32.89 Other specified disorders of bladder; K76.89 Other specified diseases of liver; E27.8 Other specified disorders of adrenal gland; K57.30 Diverticulosis of large intestine without perforation or abscess without bleeding
CPT/HCPCS: 74176

== ENCOUNTER 2020-01-09 20:51 | Emergency (ER) | payer BC ==
[~2020-01-09 20:51] MED LIST: Iopamidol-370 76% 500 ML 1 ML ONE
[2020-01-09 21:44] LABS: ALT (SGPT) 11 U/L (8-55); AST (SGOT) 12 U/L (5-34); Albumin 4.1 g/dL (3.4-4.8); Alkaline Phosphatase 169 U/L (40-110); Anion Gap 13 mmol/L (10-20); BUN (Urea Nitrogen) 25 mg/dL (9.8-20.1); Bilirubin, Total 2.3 mg/dL (0.2-1.2); Calc. Creatinine Clearance 0 mL/min (70-130); Calcium 9.3 mg/dL (7.8-10.44); Carbon Dioxide 23 mmol/L (23-31); Chloride 102 mmol/L (98-107); Estimated GFR-MDRD 37; Globulin 3.6 g/dL (2.4-3.5); Glucose 171 mg/dL (80-115); Potassium 4.2 mmol/L (3.5-5.1); Protein, Total 7.7 g/dL (6.0-8.3); Sodium 134 mmol/L (136-145)
[2020-01-09] MEDS ORDERED: Ondansetron PF 4 MG/2 ML Vial ONE (21:48)
[2020-01-09 21:51] LABS: Mean Corpuscular HGB CONC 34.1 g/dL (32.0-36.0); Mean Corpuscular Hemoglobin 30.9 pg (27.0-31.0); Mean Corpuscular Volume 90.5 fL (78.0-98.0); Mean Platelet Volume 7.5 fL (7.4-10.4); Platelet Count 366 thou/uL (130-400); RBC Distribution Width 12.6 % (11.5-14.5); Red Blood Cell (RBC) Count 4.52 mill/uL (4.20-5.40); White Blood Cell (WBC) Count 21.4 thou/uL (4.8-10.8)
[2020-01-09 22:08] LABS: Band 18 % (5-11); Lymphocytes 8 % (21-51); MDiff Complete? YES; Monocytes 6 % (0-10); Neutrophil 68 % (42-75)
--- NOTE | 2020-01-09 23:07 | CT ---
CT Abdomen Pelvis W Con HISTORY: Midline abdominal pain and vomiting COMPARISON: CT Stone protocol of 10/20/[address] abdomen pelvis with contrast 02/21/2019 FINDINGS: There is mild atelectatic change at the left lung base. A small hiatal hernia is again seen. Hepatic and renal cysts are redemonstrated. Cholelithiasis is again seen. Bilateral adrenal masses are redemonstrated with mild interval increase in size on the right, current ly measuring 4.7 cm and stable on the left measuring 2 cm. The spleen and pancreas are unremarkable. Bilateral renal calculi are present. There is an 8 mm calculus at the left UPJ causing hydronephrosis . Dependent calculi in the urinary bladder again noted. There is left-sided perinephric and periureteral inflammatory changes. No free air is seen. A tiny amount of free fluid is noted in the lower abdomen and pelvis. The small bowel loops are not abnormally dilated. There is colonic diverticulosis. IMPRESSION: 1. Obstructing 7 mm left UPJ calculus. 2. Nonobstructing bilateral renal calculi 3. Hepatic and renal cysts 4. Bilateral adrenal masses, slightly larger compared to 10/20/2019 on the right and stable on the le ft. 5. Cholelithiasis 6. Colonic diverticulosis
[2020-01-09 23:23] LABS: Bilirubin Negative (Negative); Blood, Urine 1+ (Negative); Clarity Clear (Clear); Glucose, Urine (Dipstick) Normal (Negative); Leukocyte 250 Leu/uL (Negative); Nitrite Negative (Negative); Protein, Urine (Dipstick) Negative (Neg-Trace); Urobilinogen Normal mg/dL (Less than 2)
[2020-01-09 23:24] LABS: Bacteria/HPF 1+ HPF (None Seen)
[2020-01-10] MEDS ORDERED: Ondansetron PF 4 MG/2 ML Vial ONE (00:20)
[2020-01-10] MEDS ORDERED: Morphine 4 MG/ML VIAL ONE (00:25)
[2020-01-10] MEDS ORDERED: Acetaminophen 500 MG TAB ONE (00:28)
== END 2020-01-10 01:45 | disposition home or self-care (01) ==
LOC: ERS 20:51
DX: N20.2 Calculus of kidney with calculus of ureter (principal); I49.9 Cardiac arrhythmia, unspecified; M19.90 Unspecified osteoarthritis, unspecified site; I10 Essential (primary) hypertension; F32.9 Major depressive disorder, single episode, unspecified; Z87.891 Personal history of nicotine dependence; Z79.899 Other long term (current) drug therapy; Z87.442 Personal history of urinary calculi
CPT/HCPCS: 36415; 74177; 80053; 81003; 81015; 83690; 85025; 87086; 93005; J0744; J2270; J2405; Q9967

== ENCOUNTER 2020-02-13 09:04 | Outpatient (CLI) | payer BC ==
--- NOTE | 2020-02-13 13:33 | NM ---
Nuclear medicine parathyroid scan scintigraphy and SPECT: 02/13/2020 HISTORY: 65-year-old female with hyperparathyroidism. TECHNIQUE: 65-year-old female with hyperparathyroidism. TECHNIQUE: 24.0 mCi of technetium 99m-sestamibi injected IV. 3 view planar scintigraphic images from mid chest 2 top of head. Nondiagnostic noncontrast CT from subcarinal level to skull base. SPECT covering the same regions, Sagittal, coronal, and axial SPECT-CT fusion images reviewed. FINDINGS: There is expected normal uptake in the bilateral submandibular and parotid glands, and in the left an d right lobes of the thyroid gland. There are no additional foci of increased uptake that would suggest parathyroid adenoma. IMPRESSION: No parathyroid adenoma identified.
== END 2020-02-13 09:05 | disposition home or self-care (01) ==
LOC: NM 09:04
PROVIDERS: ATTEND Student in an Organized Health Care Education/Training Program
DX: E21.3 Hyperparathyroidism, unspecified (principal)
CPT/HCPCS: 78072; A9500

== ENCOUNTER 2020-12-07 17:41 | Inpatient (IN) | payer BC ==
[2020-12-07 18:44] LABS: Mean Corpuscular HGB CONC 32.1 g/dL (32.0-36.0); Mean Corpuscular Hemoglobin 29.5 pg (27.0-31.0); Mean Corpuscular Volume 92.1 fL (78.0-98.0); Mean Platelet Volume 7.6 fL (7.4-10.4); Platelet Count 312 thou/uL (130-400); RBC Distribution Width 11.9 % (11.5-14.5); Red Blood Cell (RBC) Count 4.72 mill/uL (4.20-5.40); White Blood Cell (WBC) Count 12.2 thou/uL (4.8-10.8)
[2020-12-07 19:03] LABS: ALT (SGPT) 20 U/L (8-55); AST (SGOT) 31 U/L (5-34); Alkaline Phosphatase 206 U/L (40-110); Anion Gap 16 mmol/L (10-20); BUN (Urea Nitrogen) 23 mg/dL (9.8-20.1); Bilirubin, Total 1.4 mg/dL (0.2-1.2); Calc. Creatinine Clearance 0 mL/min (70-130); Calcium 9.2 mg/dL (7.8-10.44); Carbon Dioxide 20 mmol/L (23-31); Chloride 105 mmol/L (98-107); Globulin 3.3 g/dL (2.4-3.5); Glucose 283 mg/dL (80-115); Lipase 11 U/L (8-78); Potassium 3.3 mmol/L (3.5-5.1); Protein, Total 7.3 g/dL (5.8-8.1); Sodium 138 mmol/L (136-145)
[2020-12-07 19:04] LABS: Band 62 % (5-11); Lymphocytes 1 % (21-51); MDiff Complete? YES; Metamyelocyte 4 % (0-0); Monocytes 1 % (0-10); Myelocyte 1 % (0-0); Neutrophil 27 % (42-75); Nucleated RBC 1 % (0); Reactive Lymphocytes 2 % (0-10); Reflex for Review?? YES
[2020-12-07] MEDS ORDERED: Morphine 4 MG/ML VIAL ONE ×2 (19:10→22:57)
[2020-12-07] MEDS ORDERED: Ketorolac Tromethamine 30 MG/ML VIAL ONE (19:10)
[2020-12-07] MEDS ORDERED: Ondansetron PF 4 MG/2 ML Vial ONE ×2 (19:10→22:57)
[2020-12-07 21:10] LABS: Bacteria/HPF 4+ HPF (None Seen); Bilirubin Negative (Negative); Blood, Urine 3+ (Negative); Clarity Extra Turbid (Clear); Glucose, Urine (Dipstick) 50 mg/dL (Negative); Ketone, Urine 10 mg/dL (Negative); Leukocyte 500 Leu/uL (Negative); Nitrite 1+ (Negative); Protein, Urine (Dipstick) 100 mg/dL (Neg-Trace); RBC/HPF Greater than 50 HPF (0-3); Specific Gravity, Urine 1.016 (1.002-1.036); Urobilinogen Normal mg/dL (Less than 2); WBC/HPF Greater than 50 HPF (0-3)
[2020-12-07] MEDS ORDERED: Potassium Chloride 20 MEQ TAB ONE (22:07)
[2020-12-08 01:04] VITALS: BMI 33.0
[2020-12-08] MEDS ORDERED: Acetaminophen 325 MG TAB PO PRN (02:15)
[2020-12-08] MEDS ORDERED: Ondansetron ODT 4 MG TAB SL PRN (02:15)
[2020-12-08] MEDS ORDERED: Ondansetron PF 4 MG/2 ML Vial IVP PRN (02:15)
[2020-12-08] MEDS ORDERED: Sodium Chloride 0.9% 1,000 ML IV SCH (02:15)
[2020-12-08 02:44] LABS: SARS-CoV-2 NAA Rapid Test Not Detected (NotDetected)
[2020-12-08] MEDS ORDERED: Promethazine HCl 25 MG in Sodium Chloride 0.9% 50 ML IVPB SCH ×2 (04:15→10:30)
[2020-12-08] MEDS ORDERED: Ondansetron ODT 4 MG TAB PO PRN (05:16)
[2020-12-08] MEDS ORDERED: HYDROcodone/Acetaminophen 5/325 mg Tablet PO PRN (05:16)
[2020-12-08] MEDS ORDERED: Zolpidem Tartrate 5 MG TAB PO PRN (05:16)
[2020-12-08] MEDS ORDERED: Senokot S 8.6-50 MG TAB PO PRN (05:16)
[2020-12-08] MEDS ORDERED: Guaifenesin DM 100-10/5 ML UDCUP PO PRN (05:16)
[2020-12-08] MEDS ORDERED: Loperamide HCl 2 MG CAP PO PRN (05:16)
[2020-12-08] MEDS ORDERED: Bisacodyl 10 MG SUPP PR PRN (05:16)
[2020-12-08] MEDS ORDERED: Dextrose 50% Abboject 50 ML SYRINGE SLOW IVP PRN (05:18)
[2020-12-08] MEDS ORDERED: Dextrose 5% in Water 1,000 ML IV PRN (05:18)
[2020-12-08] MEDS ORDERED: HumaLOG 300 UNITS/3 ML VIAL SC PRN ×2 (05:18)
[2020-12-08] MEDS ORDERED: Potassium Chloride 20 MEQ TAB PO SCH (05:30)
[2020-12-08] MEDS: Sodium Chloride 0.9% 1,000 ML IV SCH ×2 (06:17→15:50)
[2020-12-08] MEDS ORDERED: VANCOMYCIN 1.25 GM/250 ML BAG 1.25 GM in Premix Bag 1 BAG IVPB SCH (07:30)
[2020-12-08] MEDS: Amlodipine 5 MG TAB PO SCH (08:33)
[2020-12-08] MEDS: Famotidine 20 MG TAB PO SCH ×2 (08:33→20:26)
[2020-12-08] MEDS ORDERED: Cefepime 1 GM in Sodium Chloride 0.9% 100 ML IVPB SCH (09:00)
[2020-12-08] MEDS: Ondansetron PF 4 MG/2 ML Vial IVP PRN (10:05)
[2020-12-08 14:19] LABS: Anion Gap 13 mmol/L (10-20); BUN (Urea Nitrogen) 20 mg/dL (9.8-20.1); Calc. Creatinine Clearance 92 mL/min (70-130); Calcium 8.6 mg/dL (7.8-10.44); Carbon Dioxide 20 mmol/L (23-31); Chloride 112 mmol/L (98-107); Glucose 102 mg/dL (80-115); Magnesium 1.5 mg/dL (1.6-2.6); Potassium 4.5 mmol/L (3.5-5.1); Sodium 140 mmol/L (136-145)
[2020-12-09] MEDS: Sodium Chloride 0.9% 1,000 ML IV SCH ×3 (04:16→21:51)
[2020-12-09 06:32] LABS: ALT (SGPT) 21 U/L (8-55); AST (SGOT) 22 U/L (5-34); Albumin 3.2 g/dL (3.4-4.8); Alkaline Phosphatase 137 U/L (40-110); Anion Gap 11 mmol/L (10-20); BUN (Urea Nitrogen) 15 mg/dL (9.8-20.1); Bilirubin, Total 0.9 mg/dL (0.2-1.2); Calc. Creatinine Clearance 95 mL/min (70-130); Calcium 8.6 mg/dL (7.8-10.44); Carbon Dioxide 19 mmol/L (23-31); Chloride 112 mmol/L (98-107); Glucose 118 mg/dL (80-115); Magnesium 1.6 mg/dL (1.6-2.6); Potassium 3.6 mmol/L (3.5-5.1); Protein, Total 6.2 g/dL (5.8-8.1); Sodium 138 mmol/L (136-145)
[2020-12-09 06:58] LABS: Band 32 % (5-11); Hemoglobin 12.1 g/dL (12.0-16.0); Lymphocytes 3 % (21-51); MDiff Complete? YES; Mean Corpuscular Hemoglobin 29.6 pg (27.0-31.0); Mean Corpuscular Volume 92.4 fL (78.0-98.0); Mean Platelet Volume 8.4 fL (7.4-10.4); Monocytes 5 % (0-10); Neutrophil 60 % (42-75); Platelet Count 252 thou/uL (130-400); RBC Distribution Width 12.1 % (11.5-14.5); White Blood Cell (WBC) Count 22.2 thou/uL (4.8-10.8)
[2020-12-09] MEDS: Amlodipine 5 MG TAB PO SCH (08:19)
[2020-12-09] MEDS: Famotidine 20 MG TAB PO SCH ×2 (08:19→20:17)
[2020-12-09 11:23] LABS: Magnesium 1.6 mg/dL (1.6-2.6)
[2020-12-09] MEDS: Pantoprazole 40 MG VIAL IVP SCH (11:25)
[2020-12-09 11:29] LABS: Troponin I 0.016 ng/mL (< 0.028)
[2020-12-09 11:32] LABS: Phosphorus 1.6 mg/dL (2.3-4.7)
[2020-12-09] MEDS: cefTRIAXone\\ROCEPHIN 2 GM in Sodium Chloride 0.9% 100 ML IVPB SCH (11:44)
[2020-12-09] MEDS ORDERED: Electrolyte Replacement Protocol 1 EACH FS PRN (11:45)
[2020-12-09] MEDS ORDERED: Magnesium 2 GM/50 ML 2 GM in Premix Bag 1 BAG IVPB SCH (12:45)
[2020-12-09] MEDS ORDERED: Potassium Phosphate 15 MMOL in Sodium Chloride 0.9% 100 ML IVPB SCH (12:45)
[2020-12-09] MEDS: Acetaminophen 325 MG TAB PO PRN ×2 (14:11→23:20)
[2020-12-09] MEDS ORDERED: Diltiazem 125 MG in Sodium Chloride 0.9% 100 ML IVPB SCH (16:00)
[2020-12-10 05:16] LABS: #Basophils 0.1 thou/uL (0.0-0.2); #Eosinphils 0.1 thou/uL (0.0-0.7); #Lymphocytes 2.2 thou/uL (1.20-3.40); #Monocytes 0.9 thou/uL (0.11-0.59); #Neutrophils 10.9 thou/uL (1.40-6.50); %Basophils 0.4 % (0.0-1.0); %Eosinophils 0.9 % (0.0-10.0); %Lymphocytes 15.6 % (21.0-51.0); %Monocytes 6.6 % (0.0-10.0); %Neutrophils 76.5 % (42.0-75.0); Hemoglobin 12.6 g/dL (12.0-16.0); Mean Corpuscular HGB CONC 32.5 g/dL (32.0-36.0); Mean Corpuscular Hemoglobin 29.7 pg (27.0-31.0); Mean Corpuscular Volume 91.5 fL (78.0-98.0); Mean Platelet Volume 8.2 fL (7.4-10.4); Platelet Count 285 thou/uL (130-400); RBC Distribution Width 12.2 % (11.5-14.5); Red Blood Cell (RBC) Count 4.22 mill/uL (4.20-5.40); White Blood Cell (WBC) Count 14.3 thou/uL (4.8-10.8)
[2020-12-10 05:41] LABS: Anion Gap 12 mmol/L (10-20); BUN (Urea Nitrogen) 15 mg/dL (9.8-20.1); Calc. Creatinine Clearance 90 mL/min (70-130); Calcium 8.5 mg/dL (7.8-10.44); Carbon Dioxide 19 mmol/L (23-31); Chloride 112 mmol/L (98-107); Glucose 204 mg/dL (80-115); Potassium 3.4 mmol/L (3.5-5.1); Sodium 140 mmol/L (136-145)
[2020-12-10] MEDS ORDERED: Magnesium 2 GM/50 ML 2 GM in Premix Bag 1 BAG IVPB SCH (06:30)
[2020-12-10] MEDS ORDERED: Potassium Chloride 20 MEQ TAB PO SCH (06:45)
[2020-12-10] MEDS: Famotidine 20 MG TAB PO SCH ×2 (09:44→20:30)
[2020-12-10] MEDS: Pantoprazole 40 MG VIAL IVP SCH (09:45)
[2020-12-10] MEDS: Amlodipine 5 MG TAB PO SCH (09:45)
[2020-12-10] MEDS: Sodium Chloride 0.9% 1,000 ML IV SCH ×3 (09:56→23:34)
[2020-12-10] MEDS ORDERED: Enoxaparin Sodium 80 MG/0.8 ML SYRINGE SC SCH (12:15)
[2020-12-10] MEDS: cefTRIAXone\\ROCEPHIN 2 GM in Sodium Chloride 0.9% 100 ML IVPB SCH (12:19)
[2020-12-10] MEDS: Acetaminophen 325 MG TAB PO PRN (13:07)
[2020-12-10] MEDS: Diltiazem 125 MG in Sodium Chloride 0.9% 100 ML IVPB SCH (19:33)
[2020-12-10] MEDS: Enoxaparin Sodium 80 MG/0.8 ML SYRINGE SC SCH (20:30)
[2020-12-11] MEDS: Acetaminophen 325 MG TAB PO PRN (03:24)
[2020-12-11 04:44] LABS: #Basophils 0.1 thou/uL (0.0-0.2); #Eosinphils 0.2 thou/uL (0.0-0.7); #Lymphocytes 3.1 thou/uL (1.20-3.40); #Monocytes 0.9 thou/uL (0.11-0.59); #Neutrophils 7.8 thou/uL (1.40-6.50); %Basophils 0.5 % (0.0-1.0); %Eosinophils 1.9 % (0.0-10.0); %Lymphocytes 25.7 % (21.0-51.0); %Monocytes 7.5 % (0.0-10.0); %Neutrophils 64.4 % (42.0-75.0); Hemoglobin 13.2 g/dL (12.0-16.0); Mean Corpuscular HGB CONC 32.4 g/dL (32.0-36.0); Mean Corpuscular Hemoglobin 29.6 pg (27.0-31.0); Mean Corpuscular Volume 91.3 fL (78.0-98.0); Mean Platelet Volume 8.2 fL (7.4-10.4); Platelet Count 298 thou/uL (130-400); Red Blood Cell (RBC) Count 4.47 mill/uL (4.20-5.40); White Blood Cell (WBC) Count 12.2 thou/uL (4.8-10.8)
[2020-12-11 05:08] LABS: Anion Gap 14 mmol/L (10-20); BUN (Urea Nitrogen) 13 mg/dL (9.8-20.1); Calc. Creatinine Clearance 94 mL/min (70-130); Calcium 8.7 mg/dL (7.8-10.44); Carbon Dioxide 20 mmol/L (23-31); Chloride 108 mmol/L (98-107); Glucose 179 mg/dL (80-115); Potassium 3.3 mmol/L (3.5-5.1); Sodium 139 mmol/L (136-145)
[2020-12-11] MEDS: Diltiazem 125 MG in Sodium Chloride 0.9% 100 ML IVPB SCH (06:19)
[2020-12-11] MEDS ORDERED: Potassium Chloride 20 MEQ TAB PO SCH (06:30)
[2020-12-11] MEDS: Ondansetron PF 4 MG/2 ML Vial IVP PRN (06:44)
[2020-12-11] MEDS: Famotidine 20 MG TAB PO SCH ×2 (09:27→20:56)
[2020-12-11] MEDS: Pantoprazole 40 MG VIAL IVP SCH (09:27)
[2020-12-11] MEDS: Enoxaparin Sodium 80 MG/0.8 ML SYRINGE SC SCH ×2 (09:28→20:55)
[2020-12-11] MEDS: cefTRIAXone\\ROCEPHIN 2 GM in Sodium Chloride 0.9% 100 ML IVPB SCH (11:51)
[2020-12-11] MEDS: Sodium Chloride 0.9% 1,000 ML IV SCH ×2 (11:55→20:55)
[2020-12-11] MEDS ORDERED: Dronedarone HCl 400 MG TAB PO SCH ×2 (18:00→21:00)
[2020-12-11] MEDS ORDERED: Promethazine HCl 25 MG in Sodium Chloride 0.9% 50 ML IVPB PRN (18:21)
[2020-12-12 04:52] LABS: #Basophils 0.1 thou/uL (0.0-0.2); #Eosinphils 0.3 thou/uL (0.0-0.7); #Lymphocytes 3.2 thou/uL (1.20-3.40); #Monocytes 0.7 thou/uL (0.11-0.59); #Neutrophils 5.6 thou/uL (1.40-6.50); %Basophils 0.9 % (0.0-1.0); %Eosinophils 2.9 % (0.0-10.0); %Lymphocytes 32.3 % (21.0-51.0); %Monocytes 6.6 % (0.0-10.0); %Neutrophils 57.4 % (42.0-75.0); Hemoglobin 13.4 g/dL (12.0-16.0); Mean Corpuscular HGB CONC 30.9 g/dL (32.0-36.0); Mean Corpuscular Hemoglobin 28.2 pg (27.0-31.0); Mean Corpuscular Volume 91.3 fL (78.0-98.0); Mean Platelet Volume 7.8 fL (7.4-10.4); Platelet Count 343 thou/uL (130-400); RBC Distribution Width 12.2 % (11.5-14.5); Red Blood Cell (RBC) Count 4.75 mill/uL (4.20-5.40); White Blood Cell (WBC) Count 9.8 thou/uL (4.8-10.8)
[2020-12-12 05:13] LABS: Anion Gap 13 mmol/L (10-20); BUN (Urea Nitrogen) 13 mg/dL (9.8-20.1); Calc. Creatinine Clearance 102 mL/min (70-130); Calcium 8.8 mg/dL (7.8-10.44); Carbon Dioxide 22 mmol/L (23-31); Chloride 107 mmol/L (98-107); Glucose 129 mg/dL (80-115); Potassium 3.2 mmol/L (3.5-5.1); Sodium 139 mmol/L (136-145)
[2020-12-12] MEDS ORDERED: Potassium Chloride 20 MEQ TAB PO SCH (07:15)
[2020-12-12] MEDS: Enoxaparin Sodium 80 MG/0.8 ML SYRINGE SC SCH ×2 (09:19→20:23)
[2020-12-12] MEDS: Dronedarone HCl 400 MG TAB PO SCH ×2 (09:19→16:08)
[2020-12-12] MEDS: Famotidine 20 MG TAB PO SCH ×2 (09:19→20:23)
[2020-12-12] MEDS: cefTRIAXone\\ROCEPHIN 2 GM in Sodium Chloride 0.9% 100 ML IVPB SCH (12:24)
[2020-12-12] MEDS ORDERED: Digoxin 0.125 MG TAB PO SCH (18:00)
[2020-12-12] MEDS: Sodium Chloride 0.9% 1,000 ML IV SCH (20:28)
[2020-12-13 04:23] LABS: #Basophils 0.1 thou/uL (0.0-0.2); #Eosinphils 0.2 thou/uL (0.0-0.7); #Lymphocytes 3.2 thou/uL (1.20-3.40); #Monocytes 0.8 thou/uL (0.11-0.59); #Neutrophils 5.2 thou/uL (1.40-6.50); %Basophils 0.7 % (0.0-1.0); %Eosinophils 2.6 % (0.0-10.0); %Lymphocytes 33.4 % (21.0-51.0); %Monocytes 8.4 % (0.0-10.0); %Neutrophils 54.8 % (42.0-75.0); Hemoglobin 12.7 g/dL (12.0-16.0); Mean Corpuscular HGB CONC 32.7 g/dL (32.0-36.0); Mean Corpuscular Hemoglobin 29.7 pg (27.0-31.0); Mean Platelet Volume 7.8 fL (7.4-10.4); Platelet Count 322 thou/uL (130-400); RBC Distribution Width 12.1 % (11.5-14.5); Red Blood Cell (RBC) Count 4.28 mill/uL (4.20-5.40); White Blood Cell (WBC) Count 9.5 thou/uL (4.8-10.8)
[2020-12-13 04:36] LABS: Anion Gap 13 mmol/L (10-20); BUN (Urea Nitrogen) 17 mg/dL (9.8-20.1); Calc. Creatinine Clearance 101 mL/min (70-130); Calcium 8.4 mg/dL (7.8-10.44); Carbon Dioxide 21 mmol/L (23-31); Chloride 109 mmol/L (98-107); Glucose 143 mg/dL (80-115); Potassium 3.2 mmol/L (3.5-5.1); Sodium 140 mmol/L (136-145)
[2020-12-13] MEDS: Sodium Chloride 0.9% 1,000 ML IV SCH (05:15)
[2020-12-13] MEDS ORDERED: Potassium Chloride 20 MEQ TAB PO SCH ×2 (06:15→13:00)
[2020-12-13] MEDS: Dronedarone HCl 400 MG TAB PO SCH (08:08)
[2020-12-13] MEDS: Famotidine 20 MG TAB PO SCH (08:09)
[2020-12-13] MEDS: Enoxaparin Sodium 80 MG/0.8 ML SYRINGE SC SCH (08:10)
[2020-12-13] MEDS ORDERED: Digoxin 0.125 MG TAB PO SCH (09:00)
[2020-12-13 11:23] VITALS: BP 167/93; TEMP 98.6
[2020-12-13] MEDS: cefTRIAXone\\ROCEPHIN 2 GM in Sodium Chloride 0.9% 100 ML IVPB SCH (11:24)
== END 2020-12-13 14:55 | disposition home or self-care (01) | DRG 872 ==
LOC: ERS 17:41 → T4-A 23:07 → OBSVTOIN 12-08 05:20 → 2NO 12-09 17:58
PROVIDERS: ADMIT Internal Medicine; ATTEND Internal Medicine
DX: A41.51 Sepsis due to Escherichia coli [E. coli] (principal); N17.9 Acute kidney failure, unspecified; N10 Acute pyelonephritis; Z20.822 Contact with and (suspected) exposure to COVID-19; I48.91 Unspecified atrial fibrillation; E66.9 Obesity, unspecified; I10 Essential (primary) hypertension; E27.8 Other specified disorders of adrenal gland; N21.0 Calculus in bladder; R73.9 Hyperglycemia, unspecified; E87.6 Hypokalemia; N20.0 Calculus of kidney; K80.20 Calculus of gallbladder without cholecystitis without obstruction; K76.0 Fatty (change of) liver, not elsewhere classified; K57.90 Diverticulosis of intestine, part unspecified, without perforation or abscess without bleeding; K44.9 Diaphragmatic hernia without obstruction or gangrene; M19.90 Unspecified osteoarthritis, unspecified site; Z68.33 Body mass index [BMI] 33.0-33.9, adult; Z90.710 Acquired absence of both cervix and uterus; Z88.0 Allergy status to penicillin; Z88.8 Allergy status to other drugs, medicaments and biological substances; Z79.899 Other long term (current) drug therapy; Z87.442 Personal history of urinary calculi; Z87.891 Personal history of nicotine dependence
CPT/HCPCS: 36415; 36416; 70450; 71045; 74176; 80048; 80053; 81003; 81015; 83036; 83690; 83735; 84100; 84484; 85025; 85060; 87040; 87077; 87086; 87149; 87186; 93005; 93010; 93306; 94760; 96365; 96375; 96376; C9113; G0378; J0696; J1650; J1815; J1885; J1956; J2270; J2405; J2550; J3370; J3475; J3490; U0002

== ENCOUNTER 2021-04-30 09:59 | Emergency (ER) | payer BC, OTHER ==
[2021-04-30] MEDS ORDERED: Ondansetron PF 4 MG/2 ML Vial ONE (12:13)
[2021-04-30 12:17] LABS: #Monocytes 0.8 thou/uL (0.11-0.59); #Neutrophils 10.5 thou/uL (1.40-6.50); %Basophils 0.1 % (0.0-1.0); %Eosinophils 0.3 % (0.0-10.0); %Lymphocytes 7.9 % (21.0-51.0); %Monocytes 6.2 % (0.0-10.0); %Neutrophils 85.5 % (42.0-75.0); Hemoglobin 15.3 g/dL (12.0-16.0); Mean Corpuscular HGB CONC 32.5 g/dL (32.0-36.0); Mean Corpuscular Hemoglobin 30.3 pg (27.0-31.0); Mean Corpuscular Volume 93.2 fL (78.0-98.0); Mean Platelet Volume 8.8 fL (7.4-10.4); Platelet Count 277 thou/uL (130-400); RBC Distribution Width 12.4 % (11.5-14.5); Red Blood Cell (RBC) Count 5.04 mill/uL (4.20-5.40); White Blood Cell (WBC) Count 12.2 thou/uL (4.8-10.8)
[2021-04-30 12:32] LABS: INR-International Normal Ratio 1.1; Prothrombin Time 14.6 sec (12.0-14.7)
[2021-04-30 12:33] LABS: PTT 38.9 sec (22.9-36.1)
[2021-04-30 12:39] LABS: ALT (SGPT) 48 U/L (8-55); AST (SGOT) 50 U/L (5-34); Albumin 3.7 g/dL (3.4-4.8); Alkaline Phosphatase 163 U/L (40-110); Anion Gap 20 mmol/L (10-20); BUN (Urea Nitrogen) 26 mg/dL (9.8-20.1); Bilirubin, Total 0.9 mg/dL (0.2-1.2); Calc. Creatinine Clearance 0 mL/min (70-130); Calcium 8.8 mg/dL (7.8-10.44); Carbon Dioxide 20 mmol/L (23-31); Chloride 95 mmol/L (98-107); Globulin 4.2 g/dL (2.4-3.5); Lipase 23 U/L (8-78); Potassium 4.8 mmol/L (3.5-5.1); Protein, Total 7.9 g/dL (5.8-8.1); Sodium 130 mmol/L (136-145)
[2021-04-30 12:44] LABS: Glucose 592 mg/dL (80-115)
[2021-04-30 13:31] LABS: SARS-CoV-2 NAA Rapid Test DETECTED (NotDetected)
[2021-04-30 14:22] LABS: Magnesium 1.9 mg/dL (1.6-2.6)
[2021-04-30] MEDS ORDERED: Albuterol 200 PUFF (6.7GM INHALER) ONE (15:53)
== END 2021-04-30 16:20 | disposition home or self-care (01) ==
LOC: ERS 09:59 → EEVIPCON 09:59 → ERS 16:20
DX: U07.1 COVID-19 (principal); R11.2 Nausea with vomiting, unspecified; I48.91 Unspecified atrial fibrillation; I10 Essential (primary) hypertension; Z79.01 Long term (current) use of anticoagulants; Z87.891 Personal history of nicotine dependence; Z79.899 Other long term (current) drug therapy
CPT/HCPCS: 0240U; 71045; 80053; 83605; 83690; 83735; 84484; 85025; 85610; 85730; 93005; 96374; J2405

== ENCOUNTER 2021-05-05 11:48 | Inpatient (IN) | payer BC, OTHER ==
[2021-05-05] MEDS ORDERED: Dexamethasone 10 MG/ML VIAL ONE (12:38)
[2021-05-05] MEDS ORDERED: Acetaminophen 500 MG TAB ONE (12:38)
[2021-05-05 12:40] LABS: #Basophils 0.1 thou/uL (0.0-0.2); #Lymphocytes 1.5 thou/uL (1.20-3.40); #Monocytes 0.9 thou/uL (0.11-0.59); #Neutrophils 8.9 thou/uL (1.40-6.50); %Basophils 0.7 % (0.0-1.0); %Eosinophils 0.4 % (0.0-10.0); %Lymphocytes 12.8 % (21.0-51.0); %Monocytes 8.2 % (0.0-10.0); Hemoglobin 15.3 g/dL (12.0-16.0); Mean Corpuscular HGB CONC 30.6 g/dL (32.0-36.0); Mean Corpuscular Hemoglobin 29.8 pg (27.0-31.0); Mean Corpuscular Volume 97.7 fL (78.0-98.0); Mean Platelet Volume 9.4 fL (7.4-10.4); Platelet Count 498 thou/uL (130-400); RBC Distribution Width 12.5 % (11.5-14.5); Red Blood Cell (RBC) Count 5.12 mill/uL (4.20-5.40); White Blood Cell (WBC) Count 11.5 thou/uL (4.8-10.8)
[2021-05-05 12:57] LABS: ALT (SGPT) 26 U/L (8-55); AST (SGOT) 24 U/L (5-34); Albumin 3.2 g/dL (3.4-4.8); Alkaline Phosphatase 165 U/L (40-110); Anion Gap 25 mmol/L (10-20); BUN (Urea Nitrogen) 24 mg/dL (9.8-20.1); Bilirubin, Total 1.5 mg/dL (0.2-1.2); CK (CPK) 31 U/L (29-168); Calc. Creatinine Clearance 0 mL/min (70-130); Calcium 8.8 mg/dL (7.8-10.44); Carbon Dioxide 14 mmol/L (23-31); Chloride 96 mmol/L (98-107); Globulin 3.6 g/dL (2.4-3.5); Potassium 4.1 mmol/L (3.5-5.1); Protein, Total 6.8 g/dL (5.8-8.1); Sodium 131 mmol/L (136-145)
[2021-05-05] MEDS ORDERED: Azithromycin 500 MG VIAL ONE (13:04)
[2021-05-05] MEDS ORDERED: cefTRIAXone\\ROCEPHIN 2 GM VIAL ONE (13:04)
[2021-05-05 13:12] LABS: Digoxin 0.26 ng/mL (0.8-2.0); Glucose 894 mg/dL (80-115)
[2021-05-05] MEDS ORDERED: INSULIN REGULAR IN 0.9 % NACL 100 UNIT/100 ML BAG ONE (13:30)
[2021-05-05 13:53] LABS: Actual Bicarbonate (HCO3a) 12.9 mEq/L (22-28); Analyzer IN Cardio ER; Base Excess (BEa) -9.7 mEq/L (-2.0 to +3.0); Calcium, Ionized (arterial) 1.04 mmol/L (1.12-1.30); Hemoglobin (Hb) 13.2 g/dL (12.0-16.0); O2 Tension (PaO2), arterial 69.2 mmHg (> 80.0); Potassium - ABG Lab 3.33 mmol/L (3.70-5.30)
[2021-05-05 13:54] LABS: CO2 Tension 21.2 mmHg (35.0-45.0); Puncture Site RRA
[2021-05-05] MEDS ORDERED: Sodium Chloride 0.9% 1,000 ML IV PRN ×4 (14:45)
[2021-05-05] MEDS ORDERED: Dextrose 5 %-0.45 % NaCl 1,000 ML IV PRN (14:45)
[2021-05-05] MEDS ORDERED: NS 0.9% w/ 20 MEQ KCL 1,000 ML IV PRN (14:45)
[2021-05-05] MEDS ORDERED: Electrolyte Replacement Protocol IVPB ONE (14:45)
[2021-05-05] MEDS ORDERED: Electrolyte Replacement Protocol FS PRN (16:45)
[2021-05-05 16:47] LABS: Anion Gap 19 mmol/L (10-20); BUN (Urea Nitrogen) 18 mg/dL (9.8-20.1); Calc. Creatinine Clearance 0 mL/min (70-130); Calcium 7.3 mg/dL (7.8-10.44); Carbon Dioxide 14 mmol/L (23-31); Chloride 111 mmol/L (98-107); Glucose 455 mg/dL (80-115); Magnesium 1.7 mg/dL (1.6-2.6); Potassium 3.8 mmol/L (3.5-5.1); Sodium 140 mmol/L (136-145)
[2021-05-05] MEDS ORDERED: Ondansetron PF 4 MG/2 ML Vial IVP PRN (16:57)
[2021-05-05] MEDS ORDERED: Magnesium 2 GM/50 ML 2 GM in Premix Bag 1 BAG IVPB SCH (18:00)
[2021-05-05 18:14] VITALS: BMI 28.1
[2021-05-05 19:25] LABS: Anion Gap 13 mmol/L (10-20); BUN (Urea Nitrogen) 17 mg/dL (9.8-20.1); Calc. Creatinine Clearance 92 mL/min (70-130); Calcium 7.2 mg/dL (7.8-10.44); Carbon Dioxide 18 mmol/L (23-31); Chloride 116 mmol/L (98-107); Glucose 201 mg/dL (80-115); Potassium 3.1 mmol/L (3.5-5.1); Sodium 144 mmol/L (136-145)
[2021-05-05 19:37] LABS: Bilirubin Negative (Negative); Blood, Urine 2+ (Negative); Clarity Clear (Clear); Glucose, Urine (Dipstick) Greater than 1000 mg/dL (Negative); Ketone, Urine Negative (Negative); Leukocyte 500 Leu/uL (Negative); Nitrite 2+ (Negative); Protein, Urine (Dipstick) 20 mg/dL (Neg-Trace); RBC/HPF 21-50 HPF (0-3); Specific Gravity, Urine 1.023 (1.002-1.036); Squamous Epithelial 0-3 HPF (0-3); Urobilinogen Normal mg/dL (Less than 2); WBC/HPF Greater than 50 HPF (0-3)
[2021-05-05 19:43] LABS: Bacteria/HPF 1+ HPF (None Seen)
[2021-05-05] MEDS: NS 0.9% w/ 20 MEQ KCL 1,000 ML IV PRN ×2 (20:30→22:48)
[2021-05-05] MEDS: Cholecalciferol 1,000 UNITS (25 MCG) TAB PO SCH (20:50)
[2021-05-05] MEDS: Apixaban 5 MG TAB PO SCH (20:50)
[2021-05-05 23:19] LABS: Anion Gap 12 mmol/L (10-20); BUN (Urea Nitrogen) 15 mg/dL (9.8-20.1); Calc. Creatinine Clearance 105 mL/min (70-130); Calcium 6.9 mg/dL (7.8-10.44); Carbon Dioxide 18 mmol/L (23-31); Chloride 117 mmol/L (98-107); Glucose 199 mg/dL (80-115); Potassium 4.1 mmol/L (3.5-5.1); Sodium 143 mmol/L (136-145)
[2021-05-06] MEDS: D5 1/2 NS w/20 mEq KCL 1,000 ML IV PRN ×3 (01:12→10:44)
[2021-05-06 04:45] LABS: Anion Gap 13 mmol/L (10-20); BUN (Urea Nitrogen) 13 mg/dL (9.8-20.1); Calc. Creatinine Clearance 94 mL/min (70-130); Carbon Dioxide 17 mmol/L (23-31); Chloride 114 mmol/L (98-107); Glucose 305 mg/dL (80-115); Potassium 3.7 mmol/L (3.5-5.1); Sodium 140 mmol/L (136-145)
[2021-05-06 04:46] LABS: Digoxin 0.17 ng/mL (0.8-2.0)
[2021-05-06] MEDS: HUMULIN R 100 UNITS in Sodium Chloride 0.9% 100 ML IVPB SCH (07:29)
[2021-05-06] MEDS ORDERED: PHOS-NAK 1 PKT PACK PO SCH (08:00)
[2021-05-06] MEDS: Digoxin 0.125 MG TAB PO SCH (08:19)
[2021-05-06] MEDS: Ascorbic Acid 500 mg Chewable Tablet PO SCH (08:19)
[2021-05-06] MEDS: Zinc Sulfate 220 MG CAP PO SCH (08:20)
[2021-05-06] MEDS: Apixaban 5 MG TAB PO SCH ×2 (08:20→23:09)
[2021-05-06] MEDS ORDERED: Dexamethasone 4 mg/ml Vial SLOW IVP SCH ×2 (09:00→10:30)
[2021-05-06] MEDS ORDERED: FLU VACC QS2021-22(65YR UP)/PF 240 MCG/0.7 ML SYRINGE IM ONE (09:00)
[2021-05-06] MEDS ORDERED: Potassium Phosphate 15 MMOL in Sodium Chloride 0.9% 250 ML 250 ML IVPB SCH ×2 (10:15→17:15)
[2021-05-06] MEDS: cefTRIAXone\\ROCEPHIN 1 GM in Sodium Chloride 0.9% 100 ML IVPB SCH (12:01)
[2021-05-06] MEDS: Azithromycin 500 MG in Sodium Chloride 0.9% 250 ML 250 ML IVPB SCH (12:07)
[2021-05-06 16:18] LABS: Anion Gap 15 mmol/L (10-20); BUN (Urea Nitrogen) 8 mg/dL (9.8-20.1); Calc. Creatinine Clearance 94 mL/min (70-130); Calcium 7.2 mg/dL (7.8-10.44); Carbon Dioxide 18 mmol/L (23-31); Chloride 110 mmol/L (98-107); Glucose 225 mg/dL (80-115); Magnesium 1.5 mg/dL (1.6-2.6); Potassium 4.2 mmol/L (3.5-5.1); Sodium 139 mmol/L (136-145)
[2021-05-06 16:26] LABS: Phosphorus 1.8 mg/dL (2.3-4.7)
[2021-05-06] MEDS ORDERED: Calcium Gluconate 9.2 MEQ in Sodium Chloride 0.9% 100 ML IVPB SCH (17:05)
[2021-05-06] MEDS ORDERED: Magnesium Sulfate 3 GM in Sodium Chloride 0.9% 100 ML IVPB SCH (17:15)
[2021-05-06] MEDS ORDERED: Sodium Bicarb 50 MEQ/50 ML Abboject 8.4% SYRINGE IVP SCH (18:00)
[2021-05-06] MEDS: Cholecalciferol 1,000 UNITS (25 MCG) TAB PO SCH (23:09)
[2021-05-07] MEDS: Acetaminophen 325 MG TAB PO PRN ×2 (03:21→08:57)
[2021-05-07 04:09] LABS: #Lymphocytes 1.8 thou/uL (1.20-3.40); #Neutrophils 8.9 thou/uL (1.40-6.50); %Basophils 0.2 % (0.0-1.0); %Eosinophils 0.3 % (0.0-10.0); %Lymphocytes 15.3 % (21.0-51.0); %Monocytes 8.7 % (0.0-10.0); %Neutrophils 75.6 % (42.0-75.0); Hemoglobin 12.3 g/dL (12.0-16.0); Mean Corpuscular HGB CONC 34.5 g/dL (32.0-36.0); Mean Corpuscular Hemoglobin 31.7 pg (27.0-31.0); Mean Corpuscular Volume 91.8 fL (78.0-98.0); Mean Platelet Volume 8.4 fL (7.4-10.4); Platelet Count 386 thou/uL (130-400); Red Blood Cell (RBC) Count 3.87 mill/uL (4.20-5.40); White Blood Cell (WBC) Count 11.8 thou/uL (4.8-10.8)
[2021-05-07 04:13] LABS: Hemoglobin A1c 13.5 % (4.0-6.0)
[2021-05-07 04:34] LABS: Anion Gap 12 mmol/L (10-20); BUN (Urea Nitrogen) 8 mg/dL (9.8-20.1); Calc. Creatinine Clearance 108 mL/min (70-130); Calcium 7.8 mg/dL (7.8-10.44); Carbon Dioxide 23 mmol/L (23-31); Chloride 107 mmol/L (98-107); Glucose 111 mg/dL (80-115); Potassium 3.6 mmol/L (3.5-5.1); Sodium 138 mmol/L (136-145)
[2021-05-07 04:52] LABS: ALT (SGPT) 25 U/L (8-55); AST (SGOT) 31 U/L (5-34); Albumin 2.6 g/dL (3.4-4.8); Alkaline Phosphatase 132 U/L (40-110); Anion Gap 13 mmol/L (10-20); BUN (Urea Nitrogen) 8 mg/dL (9.8-20.1); Bilirubin, Total 0.8 mg/dL (0.2-1.2); Calc. Creatinine Clearance 105 mL/min (70-130); Calcium 7.7 mg/dL (7.8-10.44); Carbon Dioxide 22 mmol/L (23-31); Chloride 106 mmol/L (98-107); Globulin 2.7 g/dL (2.4-3.5); Glucose 118 mg/dL (80-115); Phosphorus 2.2 mg/dL (2.3-4.7); Potassium 3.6 mmol/L (3.5-5.1); Protein, Total 5.3 g/dL (5.8-8.1); Sodium 137 mmol/L (136-145)
[2021-05-07] MEDS: Digoxin 0.125 MG TAB PO SCH (08:56)
[2021-05-07] MEDS: Zinc Sulfate 220 MG CAP PO SCH (08:56)
[2021-05-07] MEDS: Dexamethasone 4 mg/ml Vial SLOW IVP SCH (08:57)
[2021-05-07] MEDS: Ascorbic Acid 500 mg Chewable Tablet PO SCH (08:57)
[2021-05-07] MEDS: Apixaban 5 MG TAB PO SCH ×2 (08:57→20:24)
[2021-05-07] MEDS: HUMULIN R 100 UNITS in Sodium Chloride 0.9% 100 ML IVPB SCH ×2 (11:19→21:12)
[2021-05-07] MEDS: Azithromycin 500 MG in Sodium Chloride 0.9% 250 ML 250 ML IVPB SCH (16:53)
[2021-05-07] MEDS: cefTRIAXone\\ROCEPHIN 1 GM in Sodium Chloride 0.9% 100 ML IVPB SCH (16:53)
[2021-05-07] MEDS ORDERED: Dextrose 50% Abboject 50 ML SYRINGE SLOW IVP PRN (20:18)
[2021-05-07] MEDS ORDERED: Dextrose 5% in Water 1,000 ML IV PRN (20:18)
[2021-05-07] MEDS: Lantus 1000 UNITS/10 ML VIAL SC SCH (20:24)
[2021-05-07] MEDS: Cholecalciferol 1,000 UNITS (25 MCG) TAB PO SCH (20:24)
[2021-05-07] MEDS: Sodium Bicarbonate Tab 325 MG TAB PO SCH (20:24)
[2021-05-08 04:34] LABS: #Eosinphils 0.1 thou/uL (0.0-0.7); #Lymphocytes 1.6 thou/uL (1.20-3.40); #Neutrophils 6.9 thou/uL (1.40-6.50); %Basophils 0.2 % (0.0-1.0); %Eosinophils 1.2 % (0.0-10.0); %Lymphocytes 16.3 % (21.0-51.0); %Monocytes 10.3 % (0.0-10.0); Hemoglobin 12.9 g/dL (12.0-16.0); Mean Corpuscular HGB CONC 33.2 g/dL (32.0-36.0); Mean Corpuscular Hemoglobin 30.5 pg (27.0-31.0); Mean Platelet Volume 8.3 fL (7.4-10.4); Platelet Count 431 thou/uL (130-400); RBC Distribution Width 11.9 % (11.5-14.5); Red Blood Cell (RBC) Count 4.21 mill/uL (4.20-5.40); White Blood Cell (WBC) Count 9.6 thou/uL (4.8-10.8)
[2021-05-08 04:50] LABS: Anion Gap 13 mmol/L (10-20); BUN (Urea Nitrogen) 17 mg/dL (9.8-20.1); Calc. Creatinine Clearance 98 mL/min (70-130); Calcium 8.3 mg/dL (7.8-10.44); Carbon Dioxide 24 mmol/L (23-31); Chloride 105 mmol/L (98-107); Glucose 150 mg/dL (80-115); Potassium 3.8 mmol/L (3.5-5.1); Sodium 138 mmol/L (136-145)
[2021-05-08 05:00] LABS: Phosphorus 2.9 mg/dL (2.3-4.7)
[2021-05-08 05:05] LABS: ALT (SGPT) 30 U/L (8-55); AST (SGOT) 32 U/L (5-34); Albumin 2.7 g/dL (3.4-4.8); Alkaline Phosphatase 138 U/L (40-110); BUN (Urea Nitrogen) 18 mg/dL (9.8-20.1); Bilirubin, Total 0.6 mg/dL (0.2-1.2); Calc. Creatinine Clearance 97 mL/min (70-130); Calcium 8.4 mg/dL (7.8-10.44); Carbon Dioxide 24 mmol/L (23-31); Globulin 2.7 g/dL (2.4-3.5); Glucose 149 mg/dL (80-115); Magnesium 1.7 mg/dL (1.6-2.6); Protein, Total 5.4 g/dL (5.8-8.1)
[2021-05-08 05:11] LABS: Anion Gap 14 mmol/L (10-20); Chloride 105 mmol/L (98-107); Potassium 3.8 mmol/L (3.5-5.1); Sodium 139 mmol/L (136-145)
[2021-05-08] MEDS ORDERED: Magnesium Sulfate 2 GM in Sodium Chloride 0.9% 100 ML IVPB SCH (08:15)
[2021-05-08] MEDS ORDERED: Magnesium 2 GM/50 ML 2 GM in Premix Bag 1 BAG IVPB SCH (08:30)
[2021-05-08] MEDS ORDERED: Lantus 1000 UNITS/10 ML VIAL SC SCH (09:00)
[2021-05-08] MEDS: Acetaminophen 325 MG TAB PO PRN (09:02)
[2021-05-08] MEDS: Ascorbic Acid 500 mg Chewable Tablet PO SCH (09:02)
[2021-05-08] MEDS: Apixaban 5 MG TAB PO SCH ×2 (09:02→20:41)
[2021-05-08] MEDS: Sodium Bicarbonate Tab 325 MG TAB PO SCH ×3 (09:02→20:42)
[2021-05-08] MEDS: Zinc Sulfate 220 MG CAP PO SCH (09:03)
[2021-05-08] MEDS: Digoxin 0.125 MG TAB PO SCH (09:03)
[2021-05-08] MEDS: Dexamethasone 4 mg/ml Vial SLOW IVP SCH (09:03)
[2021-05-08] MEDS: HumaLOG 300 UNITS/3 ML VIAL SC PRN ×3 (12:08→20:40)
[2021-05-08] MEDS: Azithromycin 500 MG in Sodium Chloride 0.9% 250 ML 250 ML IVPB SCH (13:52)
[2021-05-08] MEDS: cefTRIAXone\\ROCEPHIN 1 GM in Sodium Chloride 0.9% 100 ML IVPB SCH (14:57)
[2021-05-08] MEDS: Lantus 1000 UNITS/10 ML VIAL SC SCH (20:41)
[2021-05-08] MEDS: Cholecalciferol 1,000 UNITS (25 MCG) TAB PO SCH (20:42)
[2021-05-09] MEDS ORDERED: HumaLOG 300 UNITS/3 ML VIAL SC SCH (00:30)
[2021-05-09] MEDS: HumaLOG 300 UNITS/3 ML VIAL SC PRN ×3 (05:54→21:05)
[2021-05-09 06:51] LABS: #Eosinphils 0.1 thou/uL (0.0-0.7); #Lymphocytes 1.8 thou/uL (1.20-3.40); #Monocytes 0.8 thou/uL (0.11-0.59); #Neutrophils 7.9 thou/uL (1.40-6.50); %Basophils 0.1 % (0.0-1.0); %Eosinophils 0.6 % (0.0-10.0); %Lymphocytes 16.7 % (21.0-51.0); %Neutrophils 74.6 % (42.0-75.0); Hemoglobin 12.9 g/dL (12.0-16.0); Mean Corpuscular HGB CONC 34.7 g/dL (32.0-36.0); Mean Corpuscular Hemoglobin 31.8 pg (27.0-31.0); Mean Corpuscular Volume 91.6 fL (78.0-98.0); Mean Platelet Volume 8.1 fL (7.4-10.4); Platelet Count 455 thou/uL (130-400); Red Blood Cell (RBC) Count 4.05 mill/uL (4.20-5.40); White Blood Cell (WBC) Count 10.6 thou/uL (4.8-10.8)
[2021-05-09 07:06] LABS: Anion Gap 15 mmol/L (10-20); BUN (Urea Nitrogen) 21 mg/dL (9.8-20.1); Calc. Creatinine Clearance 66 mL/min (70-130); Calcium 8.2 mg/dL (7.8-10.44); Carbon Dioxide 22 mmol/L (23-31); Chloride 103 mmol/L (98-107); Glucose 385 mg/dL (80-115); Magnesium 1.7 mg/dL (1.6-2.6); Potassium 3.7 mmol/L (3.5-5.1); Sodium 136 mmol/L (136-145)
[2021-05-09] MEDS: Digoxin 0.125 MG TAB PO SCH (08:18)
[2021-05-09] MEDS: Sodium Bicarbonate Tab 325 MG TAB PO SCH ×3 (08:18→21:06)
[2021-05-09] MEDS: Apixaban 5 MG TAB PO SCH ×2 (08:19→21:06)
[2021-05-09] MEDS: Zinc Sulfate 220 MG CAP PO SCH (08:20)
[2021-05-09] MEDS: Dexamethasone 4 mg/ml Vial SLOW IVP SCH (08:20)
[2021-05-09] MEDS: Ascorbic Acid 500 mg Chewable Tablet PO SCH (08:25)
[2021-05-09] MEDS: HumaLOG 300 UNITS/3 ML VIAL SC SCH ×3 (08:26→16:23)
[2021-05-09] MEDS ORDERED: Lantus 1000 UNITS/10 ML VIAL SC SCH ×2 (09:00→10:00)
[2021-05-09] MEDS ORDERED: Magnesium Sulfate 3 GM in Sodium Chloride 0.9% 100 ML IVPB SCH (10:15)
[2021-05-09] MEDS: Sodium Chloride 0.9% 1,000 ML IV SCH (11:26)
[2021-05-09] MEDS: cefTRIAXone\\ROCEPHIN 1 GM in Sodium Chloride 0.9% 100 ML IVPB SCH (12:59)
[2021-05-09] MEDS: Azithromycin 500 MG in Sodium Chloride 0.9% 250 ML 250 ML IVPB SCH (14:22)
[2021-05-09] MEDS: Lantus 1000 UNITS/10 ML VIAL SC SCH (21:05)
[2021-05-09] MEDS: Cholecalciferol 1,000 UNITS (25 MCG) TAB PO SCH (21:06)
[2021-05-10] MEDS: Sodium Chloride 0.9% 1,000 ML IV SCH (02:45)
[2021-05-10] MEDS: HumaLOG 300 UNITS/3 ML VIAL SC PRN (05:50)
[2021-05-10 06:29] LABS: #Lymphocytes 2.4 thou/uL (1.20-3.40); #Monocytes 1.1 thou/uL (0.11-0.59); #Neutrophils 8.4 thou/uL (1.40-6.50); %Basophils 0.3 % (0.0-1.0); %Eosinophils 0.3 % (0.0-10.0); %Lymphocytes 19.9 % (21.0-51.0); %Monocytes 8.9 % (0.0-10.0); %Neutrophils 70.6 % (42.0-75.0); Hemoglobin 12.7 g/dL (12.0-16.0); Mean Corpuscular HGB CONC 34.1 g/dL (32.0-36.0); Mean Corpuscular Hemoglobin 31.2 pg (27.0-31.0); Mean Corpuscular Volume 91.7 fL (78.0-98.0); Mean Platelet Volume 7.9 fL (7.4-10.4); Platelet Count 492 thou/uL (130-400); RBC Distribution Width 12.2 % (11.5-14.5); Red Blood Cell (RBC) Count 4.07 mill/uL (4.20-5.40); White Blood Cell (WBC) Count 11.9 thou/uL (4.8-10.8)
[2021-05-10 06:51] LABS: ALT (SGPT) 56 U/L (8-55); AST (SGOT) 36 U/L (5-34); Albumin 2.9 g/dL (3.4-4.8); Alkaline Phosphatase 145 U/L (40-110); Anion Gap 14 mmol/L (10-20); BUN (Urea Nitrogen) 21 mg/dL (9.8-20.1); Bilirubin, Total 0.6 mg/dL (0.2-1.2); Calc. Creatinine Clearance 91 mL/min (70-130); Calcium 7.9 mg/dL (7.8-10.44); Carbon Dioxide 23 mmol/L (23-31); Chloride 106 mmol/L (98-107); Globulin 2.6 g/dL (2.4-3.5); Glucose 214 mg/dL (80-115); Magnesium 1.8 mg/dL (1.6-2.6); Potassium 3.6 mmol/L (3.5-5.1); Protein, Total 5.5 g/dL (5.8-8.1); Sodium 139 mmol/L (136-145)
[2021-05-10 06:55] LABS: Digoxin 0.23 ng/mL (0.8-2.0)
[2021-05-10] MEDS: HumaLOG 300 UNITS/3 ML VIAL SC SCH ×3 (08:39→17:13)
[2021-05-10] MEDS: Dexamethasone 4 mg/ml Vial SLOW IVP SCH (08:41)
[2021-05-10] MEDS: Lantus 1000 UNITS/10 ML VIAL SC SCH ×2 (08:41→21:50)
[2021-05-10] MEDS: Digoxin 0.125 MG TAB PO SCH (08:42)
[2021-05-10] MEDS: Zinc Sulfate 220 MG CAP PO SCH (08:42)
[2021-05-10] MEDS: Apixaban 5 MG TAB PO SCH ×2 (08:42→21:49)
[2021-05-10] MEDS: Ascorbic Acid 500 mg Chewable Tablet PO SCH (08:42)
[2021-05-10] MEDS: Sodium Bicarbonate Tab 325 MG TAB PO SCH ×3 (08:42→21:48)
[2021-05-10] MEDS ORDERED: Amlodipine 5 MG TAB PO SCH (11:00)
[2021-05-10] MEDS: Azithromycin 500 MG in Sodium Chloride 0.9% 250 ML 250 ML IVPB SCH (12:02)
[2021-05-10] MEDS: cefTRIAXone\\ROCEPHIN 1 GM in Sodium Chloride 0.9% 100 ML IVPB SCH (13:21)
[2021-05-10] MEDS: Cholecalciferol 1,000 UNITS (25 MCG) TAB PO SCH (21:49)
[2021-05-11] MEDS: HumaLOG 300 UNITS/3 ML VIAL SC PRN ×3 (00:56→17:07)
[2021-05-11 07:26] LABS: #Eosinphils 0.1 thou/uL (0.0-0.7); #Lymphocytes 2.9 thou/uL (1.20-3.40); #Monocytes 1.2 thou/uL (0.11-0.59); #Neutrophils 9.2 thou/uL (1.40-6.50); %Basophils 0.2 % (0.0-1.0); %Eosinophils 0.4 % (0.0-10.0); %Lymphocytes 21.6 % (21.0-51.0); %Monocytes 8.9 % (0.0-10.0); %Neutrophils 68.9 % (42.0-75.0); Hemoglobin 12.3 g/dL (12.0-16.0); Mean Corpuscular HGB CONC 33.1 g/dL (32.0-36.0); Mean Corpuscular Hemoglobin 31.1 pg (27.0-31.0); Mean Corpuscular Volume 94.1 fL (78.0-98.0); Mean Platelet Volume 8.1 fL (7.4-10.4); Platelet Count 480 thou/uL (130-400); RBC Distribution Width 12.6 % (11.5-14.5); Red Blood Cell (RBC) Count 3.96 mill/uL (4.20-5.40); White Blood Cell (WBC) Count 13.3 thou/uL (4.8-10.8)
[2021-05-11 07:47] LABS: ALT (SGPT) 70 U/L (8-55); AST (SGOT) 42 U/L (5-34); Albumin 2.9 g/dL (3.4-4.8); Alkaline Phosphatase 141 U/L (40-110); Anion Gap 13 mmol/L (10-20); BUN (Urea Nitrogen) 30 mg/dL (9.8-20.1); Bilirubin, Total 0.4 mg/dL (0.2-1.2); Calc. Creatinine Clearance 95 mL/min (70-130); Calcium 8.6 mg/dL (7.8-10.44); Carbon Dioxide 24 mmol/L (23-31); Chloride 105 mmol/L (98-107); Globulin 2.5 g/dL (2.4-3.5); Glucose 177 mg/dL (80-115); Magnesium 1.8 mg/dL (1.6-2.6); Potassium 3.6 mmol/L (3.5-5.1); Protein, Total 5.4 g/dL (5.8-8.1); Sodium 138 mmol/L (136-145)
[2021-05-11] MEDS: Sodium Bicarbonate Tab 325 MG TAB PO SCH ×3 (08:36→20:18)
[2021-05-11] MEDS: Ascorbic Acid 500 mg Chewable Tablet PO SCH (08:36)
[2021-05-11] MEDS: Digoxin 0.125 MG TAB PO SCH (08:36)
[2021-05-11] MEDS: Apixaban 5 MG TAB PO SCH ×2 (08:36→20:18)
[2021-05-11] MEDS: Zinc Sulfate 220 MG CAP PO SCH (08:36)
[2021-05-11] MEDS: Amlodipine 5 MG TAB PO SCH (08:37)
[2021-05-11] MEDS: Doxycycline 100 MG CAP PO SCH ×2 (08:37→20:18)
[2021-05-11] MEDS: HumaLOG 300 UNITS/3 ML VIAL SC SCH ×3 (08:50→17:06)
[2021-05-11] MEDS: Lantus 1000 UNITS/10 ML VIAL SC SCH (08:52)
[2021-05-11] MEDS: Dexamethasone 4 mg/ml Vial SLOW IVP SCH (08:53)
[2021-05-11] MEDS ORDERED: Lantus 1000 UNITS/10 ML VIAL SC SCH (17:17)
[2021-05-11] MEDS ORDERED: Losartan 25 MG TAB PO SCH (17:30)
[2021-05-11] MEDS: Cholecalciferol 1,000 UNITS (25 MCG) TAB PO SCH (20:18)
[2021-05-12] MEDS ORDERED: Dexamethasone 4 MG TAB PO SCH (08:00)
[2021-05-12 08:13] LABS: Anion Gap 12 mmol/L (10-20); BUN (Urea Nitrogen) 27 mg/dL (9.8-20.1); Calc. Creatinine Clearance 101 mL/min (70-130); Calcium 8.6 mg/dL (7.8-10.44); Carbon Dioxide 27 mmol/L (23-31); Chloride 106 mmol/L (98-107); Glucose 78 mg/dL (80-115); Potassium 3.5 mmol/L (3.5-5.1); Sodium 141 mmol/L (136-145)
[2021-05-12] MEDS ORDERED: Losartan 25 MG TAB PO SCH (09:00)
[2021-05-12] MEDS: Sodium Bicarbonate Tab 325 MG TAB PO SCH (09:28)
[2021-05-12] MEDS: Apixaban 5 MG TAB PO SCH (09:28)
[2021-05-12] MEDS: Zinc Sulfate 220 MG CAP PO SCH (09:28)
[2021-05-12] MEDS: Doxycycline 100 MG CAP PO SCH (09:28)
[2021-05-12] MEDS: Ascorbic Acid 500 mg Chewable Tablet PO SCH (09:28)
[2021-05-12] MEDS: Amlodipine 5 MG TAB PO SCH (09:29)
[2021-05-12] MEDS: Digoxin 0.125 MG TAB PO SCH (09:30)
[2021-05-12] MEDS: HumaLOG 300 UNITS/3 ML VIAL SC SCH ×2 (09:31→12:25)
[2021-05-12] MEDS: Lantus 1000 UNITS/10 ML VIAL SC SCH (09:32)
[2021-05-12 12:15] VITALS: BP 181/91; TEMP 67
== END 2021-05-12 14:25 | disposition home or self-care (01) | DRG 177 ==
LOC: ERS 11:48 → IMCU/EMU 14:49 → T4-B 05-08 13:21
PROVIDERS: ADMIT Internal Medicine; ATTEND Internal Medicine
PROC: 8E0ZXY6 Isolation (ICD-10-PCS; principal; 2021-05-05)
PROC: 3E0333Z Introduction of Anti-inflammatory into Peripheral Vein, Percutaneous Approach (ICD-10-PCS; 2021-05-05)
DX: U07.1 COVID-19 (principal); E11.00 Type 2 diabetes mellitus with hyperosmolarity without nonketotic hyperglycemic-hyperosmolar coma (NKHHC); J12.82 Pneumonia due to coronavirus disease 2019; J96.01 Acute respiratory failure with hypoxia; N17.9 Acute kidney failure, unspecified; I48.20 Chronic atrial fibrillation, unspecified; N39.0 Urinary tract infection, site not specified; I87.2 Venous insufficiency (chronic) (peripheral); M19.90 Unspecified osteoarthritis, unspecified site; E11.65 Type 2 diabetes mellitus with hyperglycemia; N18.30 Chronic kidney disease, stage 3 unspecified; I12.9 Hypertensive chronic kidney disease with stage 1 through stage 4 chronic kidney disease, or unspecified chronic kidney disease; E11.22 Type 2 diabetes mellitus with diabetic chronic kidney disease; E87.6 Hypokalemia; E83.42 Hypomagnesemia; E83.51 Hypocalcemia; M31.6 Other giant cell arteritis; Z88.0 Allergy status to penicillin; Z88.8 Allergy status to other drugs, medicaments and biological substances; Z90.710 Acquired absence of both cervix and uterus; Z79.01 Long term (current) use of anticoagulants; Z79.51 Long term (current) use of inhaled steroids; Z79.899 Other long term (current) drug therapy; Z79.84 Long term (current) use of oral hypoglycemic drugs; Z87.891 Personal history of nicotine dependence
CPT/HCPCS: 36415; 36416; 36600; 71045; 80048; 80053; 80162; 81003; 81015; 82010; 82550; 82728; 82805; 83036; 83690; 83735; 83930; 84100; 84145; 84484; 85025; 85379; 86140; 87086; 93005; 93970; 96365; 96366; 96367; 96375; J0456; J0696; J1100; J1815; J2001; J2405; J3475; J3480; J3490; J7050; J8540

== ENCOUNTER 2021-07-03 01:14 | Inpatient (IN) | payer BC, OTHER ==
[2021-07-03 02:37] LABS: Hemoglobin 13.8 g/dL (12.0-16.0); Mean Corpuscular HGB CONC 36.4 g/dL (32.0-36.0); Mean Corpuscular Hemoglobin 33.9 pg (27.0-31.0); Mean Corpuscular Volume 93.3 fL (78.0-98.0); Mean Platelet Volume 7.3 fL (7.4-10.4); Platelet Count 449 thou/uL (130-400); RBC Distribution Width 12.5 % (11.5-14.5); Red Blood Cell (RBC) Count 4.05 mill/uL (4.20-5.40); White Blood Cell (WBC) Count 22.8 thou/uL (4.8-10.8)
[2021-07-03 02:44] LABS: Bilirubin Negative (Negative); Blood, Urine 3+ (Negative); Clarity Turbid (Clear); Glucose, Urine (Dipstick) Greater than 1000 mg/dL (Negative); Ketone, Urine 40 mg/dL (Negative); Leukocyte 500 Leu/uL (Negative); Nitrite 2+ (Negative); Protein, Urine (Dipstick) 30 mg/dL (Neg-Trace); RBC/HPF Greater than 50 HPF (0-3); Specific Gravity, Urine 1.023 (1.002-1.036); Urobilinogen Normal mg/dL (Less than 2); WBC/HPF Greater than 50 HPF (0-3); Yeast-Budding 1+ HPF (None Seen)
[2021-07-03 02:54] LABS: Bacteria/HPF 1+ HPF (None Seen)
[2021-07-03 02:56] LABS: ALT (SGPT) 21 U/L (8-55); AST (SGOT) 16 U/L (5-34); Albumin 3.8 g/dL (3.4-4.8); Alkaline Phosphatase 114 U/L (40-110); Anion Gap 15 mmol/L (10-20); BUN (Urea Nitrogen) 22 mg/dL (9.8-20.1); Bilirubin, Total 1.4 mg/dL (0.2-1.2); Calc. Creatinine Clearance 0 mL/min (70-130); Calcium 9.4 mg/dL (7.8-10.44); Carbon Dioxide 20 mmol/L (23-31); Chloride 103 mmol/L (98-107); Globulin 3.4 g/dL (2.4-3.5); Glucose 335 mg/dL (80-115); Lipase 9 U/L (8-78); Potassium 4.2 mmol/L (3.5-5.1); Protein, Total 7.2 g/dL (5.8-8.1); Sodium 134 mmol/L (136-145)
[2021-07-03] MEDS ORDERED: Morphine 4 MG/ML VIAL ONE ×2 (02:59→04:58)
[2021-07-03 03:02] LABS: Band 7 % (5-11); Lymphocytes 7 % (21-51); MDiff Complete? YES; Monocytes 5 % (0-10); Neutrophil 81 % (42-75); Platelet Morphology Comment Appears Increased; RBC Morphology Normal
[2021-07-03] MEDS ORDERED: Ondansetron PF 4 MG/2 ML Vial ONE ×4 (03:25→14:34)
[2021-07-03] MEDS ORDERED: Aztreonam 2 GM in Sodium Chloride 0.9% 100 ML IVPB SCH (04:15)
[2021-07-03] MEDS ORDERED: Ondansetron PF 4 MG/2 ML Vial IVP PRN (09:03)
[2021-07-03] MEDS ORDERED: Acetaminophen 650 MG Suppository PR PRN (09:03)
[2021-07-03] MEDS ORDERED: Ondansetron ODT 4 MG TAB PO PRN (09:03)
[2021-07-03] MEDS ORDERED: Acetaminophen 325 MG TAB PO PRN (09:03)
[2021-07-03] MEDS ORDERED: Dextrose 50% Abboject 50 ML SYRINGE SLOW IVP PRN (09:04)
[2021-07-03] MEDS ORDERED: Dextrose 5% in Water 1,000 ML IV PRN (09:04)
[2021-07-03] MEDS ORDERED: Iopamidol 370 76% 100 ML VIAL ONE (09:20)
[2021-07-03 09:36] LABS: SARS-CoV-2 NAA Rapid Test DETECTED (NotDetected)
[2021-07-03] MEDS ORDERED: Albuterol 200 PUFF (6.7GM INHALER) INH PRN (09:53)
[2021-07-03] MEDS ORDERED: Apixaban 5 MG TAB PO SCH (10:00)
[2021-07-03 10:12] LABS: Digoxin 0.75 ng/mL (0.8-2.0)
[2021-07-03] MEDS ORDERED: cefTRIAXone\\ROCEPHIN 1 GM VIAL ONE (10:34)
[2021-07-03] MEDS ORDERED: Acetaminophen 325 MG TAB ONE (10:52)
[2021-07-03] MEDS: cefTRIAXone\\ROCEPHIN 1 GM in Sodium Chloride 0.9% 100 ML IVPB SCH (10:58)
[2021-07-03] MEDS ORDERED: Scopolamine 1.5 mg/72 hour Patch ONE (12:39)
[2021-07-03] MEDS ORDERED: Fentanyl 100 MCG/2 ML VIAL ONE (14:05)
[2021-07-03] MEDS ORDERED: Sodium Chloride 0.9% 10 ML ONE ×2 (14:17→17:12)
[2021-07-03] MEDS ORDERED: Succinylcholine 200 MG/10 ml SYRINGE FS ONE (14:34)
[2021-07-03] MEDS ORDERED: PROPOFOL 200 MG/20 ML VIAL ONE (14:34)
[2021-07-03] MEDS ORDERED: Metoclopramide HCl 10 MG/2 ML VIAL ONE (14:34)
[2021-07-03] MEDS ORDERED: Dexamethasone 20 MG/5 ML VIAL ONE (14:34)
[2021-07-03] MEDS ORDERED: Lidocaine 1% PF 5 ML VIAL ONE (14:34)
[2021-07-03] MEDS ORDERED: Rocuronium Bromide 10 MG/ML (10ML VIAL) ONE (14:34)
[2021-07-03] MEDS ORDERED: Iothalamate Meglumine 60% 50 ML VIAL FS ONE (14:47)
[2021-07-03] MEDS ORDERED: Promethazine HCl 25 MG/ML VIAL IVPB PRN (15:22)
[2021-07-03] MEDS ORDERED: Promethazine HCl 25 MG/ML VIAL IM PRN (15:22)
[2021-07-03] MEDS ORDERED: Ondansetron HCl/PF 4 MG/2 ML Vial IVP PRN (15:22)
[2021-07-03] MEDS ORDERED: traMADol HCl 50 MG TAB PO PRN (15:35)
[2021-07-03] MEDS ORDERED: Oxybutynin 5 MG TAB PO PRN (15:35)
[2021-07-03] MEDS ORDERED: Morphine 4 MG/ML VIAL SLOW IVP PRN (15:40)
[2021-07-03] MEDS ORDERED: Insulin Regular 300 UNITS/3 ML VIAL ONE (17:24)
[2021-07-03 18:22] VITALS: BMI 29.0
[2021-07-03] MEDS: Apixaban 5 MG TAB PO SCH (21:50)
[2021-07-04] MEDS: HumaLOG 300 UNITS/3 ML VIAL SC PRN ×4 (00:15→21:30)
[2021-07-04 06:28] LABS: #Eosinphils 0.1 thou/uL (0.0-0.7); #Lymphocytes 2.1 thou/uL (1.20-3.40); #Monocytes 1.4 thou/uL (0.11-0.59); #Neutrophils 16.4 thou/uL (1.40-6.50); %Basophils 0.1 % (0.0-1.0); %Eosinophils 0.4 % (0.0-10.0); %Lymphocytes 10.6 % (21.0-51.0); %Monocytes 6.9 % (0.0-10.0); Hemoglobin 12.4 g/dL (12.0-16.0); Mean Corpuscular HGB CONC 33.4 g/dL (32.0-36.0); Mean Corpuscular Hemoglobin 31.8 pg (27.0-31.0); Mean Corpuscular Volume 95.1 fL (78.0-98.0); Mean Platelet Volume 7.3 fL (7.4-10.4); Platelet Count 465 thou/uL (130-400); RBC Distribution Width 12.5 % (11.5-14.5); White Blood Cell (WBC) Count 20.1 thou/uL (4.8-10.8)
[2021-07-04 06:46] LABS: Anion Gap 13 mmol/L (10-20); BUN (Urea Nitrogen) 20 mg/dL (9.8-20.1); Calc. Creatinine Clearance 80 mL/min (70-130); Calcium 8.8 mg/dL (7.8-10.44); Carbon Dioxide 22 mmol/L (23-31); Chloride 104 mmol/L (98-107); Glucose 246 mg/dL (80-115); Sodium 135 mmol/L (136-145)
[2021-07-04] MEDS: Digoxin 0.125 MG TAB PO SCH (08:40)
[2021-07-04] MEDS: Apixaban 5 MG TAB PO SCH ×2 (08:40→21:23)
[2021-07-04] MEDS ORDERED: FLU VACC QS2021-22(65YR UP)/PF 240 MCG/0.7 ML SYRINGE IM ONE (09:00)
[2021-07-04] MEDS: cefTRIAXone\\ROCEPHIN 1 GM in Sodium Chloride 0.9% 100 ML IVPB SCH (11:13)
[2021-07-05 05:28] LABS: #Basophils 0.1 thou/uL (0.0-0.2); #Eosinphils 0.2 thou/uL (0.0-0.7); #Lymphocytes 2.7 thou/uL (1.20-3.40); #Monocytes 1.2 thou/uL (0.11-0.59); #Neutrophils 7.2 thou/uL (1.40-6.50); %Basophils 0.5 % (0.0-1.0); %Eosinophils 1.9 % (0.0-10.0); %Lymphocytes 23.4 % (21.0-51.0); %Monocytes 10.6 % (0.0-10.0); %Neutrophils 63.5 % (42.0-75.0); Hemoglobin 11.5 g/dL (12.0-16.0); Mean Corpuscular HGB CONC 32.2 g/dL (32.0-36.0); Mean Corpuscular Hemoglobin 30.7 pg (27.0-31.0); Mean Corpuscular Volume 95.4 fL (78.0-98.0); Mean Platelet Volume 7.7 fL (7.4-10.4); Platelet Count 420 thou/uL (130-400); RBC Distribution Width 12.5 % (11.5-14.5); Red Blood Cell (RBC) Count 3.74 mill/uL (4.20-5.40); White Blood Cell (WBC) Count 11.3 thou/uL (4.8-10.8)
[2021-07-05 05:49] LABS: Anion Gap 12 mmol/L (10-20); BUN (Urea Nitrogen) 21 mg/dL (9.8-20.1); Calc. Creatinine Clearance 79 mL/min (70-130); Carbon Dioxide 24 mmol/L (23-31); Chloride 106 mmol/L (98-107); Glucose 275 mg/dL (80-115); Potassium 3.6 mmol/L (3.5-5.1); Sodium 138 mmol/L (136-145)
[2021-07-05] MEDS: HumaLOG 300 UNITS/3 ML VIAL SC PRN ×2 (06:30→11:29)
[2021-07-05] MEDS: Digoxin 0.125 MG TAB PO SCH (08:56)
[2021-07-05] MEDS: Apixaban 5 MG TAB PO SCH (08:57)
[2021-07-05] MEDS: cefTRIAXone\\ROCEPHIN 1 GM in Sodium Chloride 0.9% 100 ML IVPB SCH (08:57)
[2021-07-05 16:15] VITALS: BP 137/73; TEMP 98.6
== END 2021-07-05 16:00 | disposition home or self-care (01) | DRG 853 ==
LOC: ERS 01:14 → ERHOLD 06:28 → SJJU 18:07
PROVIDERS: ADMIT Internal Medicine; ATTEND Internal Medicine Geriatric Medicine
PROC: 0T768DZ Dilation of Right Ureter with Intraluminal Device, Via Natural or Artificial Opening Endoscopic (ICD-10-PCS; principal; 2021-07-03)
PROC: BT1D1ZZ Fluoroscopy of Right Kidney, Ureter and Bladder using Low Osmolar Contrast (ICD-10-PCS; 2021-07-03)
DX: A41.9 Sepsis, unspecified organism (principal); U07.1 COVID-19; N13.6 Pyonephrosis; I48.91 Unspecified atrial fibrillation; E11.9 Type 2 diabetes mellitus without complications; I10 Essential (primary) hypertension; E21.2 Other hyperparathyroidism; M35.3 Polymyalgia rheumatica; N81.10 Cystocele, unspecified; E27.8 Other specified disorders of adrenal gland; Z28.21 Immunization not carried out because of patient refusal; Z87.898 Personal history of other specified conditions; Z88.0 Allergy status to penicillin; Z88.8 Allergy status to other drugs, medicaments and biological substances; Z79.899 Other long term (current) drug therapy; Z79.01 Long term (current) use of anticoagulants; Z79.4 Long term (current) use of insulin; Z98.51 Tubal ligation status; Z80.0 Family history of malignant neoplasm of digestive organs; Z80.42 Family history of malignant neoplasm of prostate; Z80.51 Family history of malignant neoplasm of kidney; Z84.1 Family history of disorders of kidney and ureter
CPT/HCPCS: 36415; 36416; 74177; 76000; 80048; 80053; 80162; 81003; 81015; 83690; 85025; 93005; 96374; 96375; 96376; C2617; J0696; J1100; J1815; J2270; J2405; J2704; J2765; J3010; J3490; Q9961-U8; Q9967; U0002